=== PATIENT | female | born 1950 | race Caucasian/White ===

== ENCOUNTER 2017-02-08 11:19 | Inpatient (IN) | payer OTHER ==
[2017-02-08] VITALS (13 sets, daily range): BP systolic 93–141; BP diastolic 49–79
[~2017-02-08] VITALS: Ht 147.3 cm; Wt 47.7 kg
--- NOTE | 2017-02-08 11:42 | ED General ---
General Stated Complaint: LIGHTHEADED Source of Information: Patient, EMS Exam Limitations: Other (PT IS A DIFFICULT HISTORIAN) History of Present Illness Time Seen by Provider: 11:21 Initial Comments PT ARRIVES VIA EMS PT WAS AT A STORE AND WAS FEELING WEAK AND DIZZY--HAS BEEN FEELING THIS WAY " FOR AWHILE" BUT IS WORSE TODAY NO SYNCOPE, AND WAS ASSISTED TO THE FLOOR PT STATES SHE JUST FEELS LIGHTHEADED AND WEAK NO PAIN ANYWHERE AND NO HEADACHE NO CHEST PAIN, PALPITATIONS OR SHORTNESS OF BREATH NO NAUSEA/VOMITING NO PARESTHESIAS OR MOTOR DEFICITS NO VISION CHANGES NO COUGH OR URI SYMPTOMS NO URINARY SYMPTOMS NO FEVER PT WAS DX 07/2016 WITH BREAST CANCER--PT STATES SHE HAS NOT HAD SURGERY OR RADIATION, BUT HAS BEEN GETTING CHEMO--LAST TREATMENT 01/28/17--GOES TO PT STATES "THEY'RE NOT SURE" IF CANCER HAS METASTASIZED PT HAS AN APPOINTMENT NEXT WEEK TO HAVE MRI OF BREAST PT STATES SHE HAD LAB ON 01/28/17 BEFORE CHEMO PT STATES SHE IS "NOT EATING WELL" --JUST DOESN'T FEEL LIKE EATING, BUT IS NOT NAUSEATED HAS NOT EATEN OR DRANK ANYTHING TODAY PT STATES SHE IS URINATING NORMALLY, AND HAVING NORMAL BM'S PT STATES ON ARRIVAL THAT SHE DOESN'T WANT ANY TESTS DONE--"DON'T THINK I NEED ANY"--STATES "I JUST WANT TO BE ADMITTED SO I CAN GET MY STRENGTH BACK" EXPLAINED TO PT THAT TESTS NEEDED TO BE DONE, AND COULD NOT JUST ADMIT TO HOSPITAL WITHOUT MEETING ADMISSION CRITERIA PCP: [facility]: Allergies and Home Medications Allergies Coded Allergies: Sulfa (Sulfonamide Antibiotics) (Unverified Allergy, Intermediate, ) Home Medications No Active Prescriptions or Reported Meds Constitutional: No chills, No diaphoresis, dizziness, No fever, malaise, weakness EENTM: no symptoms reported Respiratory: no symptoms reported, No cough, No dyspnea on exertion, No short of breath Cardiovascular: no symptoms reported, No chest pain Gastrointestinal: No abdominal pain, No constipation, No diarrhea, No dysphagia , No hematemesis, loss of appetite, No melena, No nausea, No vomiting Genitourinary: no symptoms reported Musculoskeletal: no symptoms reported Skin: other (ABRASION TO RIGHT BROW AND LOWER LIP--STATES SHE BUMPED INTO THE WALL THIS AM TRYING TO TURN ON THE LIGHTSWITCH, NO LOSS OF CONSCIOUSNESS.) Psychiatric/Neurological: No Symptoms Reported, Denies Headache, Denies Numbness, Denies Paresthesia, Denies Seizure Hematologic/Lymphatic: No Symptoms Reported Immunological/Allergic: no symptoms reported Past Exydqvx-Rlqccp-Mnwthj Hx Seasonal Allergies Seasonal Allergies: Yes Surgeries History of Surgeries: Yes (PORT RIGHT CHEST; LEFT BREAST BIOPSY) Surgeries: Breast, Orthopedic Respiratory History of Respiratory Disorde: No Cardiovascular History of Cardiac Disorders: No Neurological History of Neurological Disord: No Reproductive System Hx Reproductive Disorders: No Sexually Transmitted Disease: No Genitourinary History of Genitourinary Disor: No Gastrointestinal History of Gastrointestinal Di: No Musculoskeletal History of Musculoskeletal Dis: No Endocrine History of Endocrine Disorders: No HEENT History of HEENT Disorders: No Cancer History of Cancer: Yes (BREAST CANCER DX 07/2016--RECEIVING CHEMO AT , NO SURGERY OR RADIATION OF 02/08/17. ) Cancer: Breast Physical Exam Vital Signs Vital Sign - Last 12Hours 02/08/17 11:53 Temp 99.9 Pulse 110 Resp 18 B/P (MAP) 118/86 Pulse Ox 97 Capillary Refill : General Appearance: No Apparent Distress, Thin, Other (WEARING A WIG) HEENT: PERRL/EOMI, Pale Conjunctivae (L), Pale Conjunctivae (R) Neck: Full Range of Motion, Normal Inspection, Non Tender, Supple Respiratory: Normal Breath Sounds, No Accessory Muscle Use, No Respiratory Distress Cardiovascular: Regular Rate, Rhythm, No Edema, No Murmur, Normal Peripheral Pulses Gastrointestinal: Normal Bowel Sounds, No Organomegaly, No Pulsatile Mass, Non Tender, Soft Back: No CVA Tenderness Extremity: Normal Capillary Refill, Normal Inspection, Normal Range of Motion, Non Tender, No Calf Tenderness, No Pedal Edema Neurologic/Psychiatric: Alert, Oriented x3, No Motor/Sensory Deficits, 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 Norm as Tested Skin: Warm/Dry, Pallor Focused Exam Evaluation Lactate Level Laboratory Tests 02/08/17 11:30: Lactic Acid Level 0.88 Lactic Acid Level Progress/Results/Core Measures Results/Orders Lab Results Laboratory Tests Test 02/08/17 11:30 Range/Units White Blood Count 0.1 *L 4.3-11.0 10^3/uL Red Blood Count 1.99 L 4.35-5.85 10^6/uL Hemoglobin 6.5 *L 11.5-16.0 G/DL Hematocrit 19 *L 35-52 % Mean Corpuscular Volume 96 80-99 FL Mean Corpuscular Hemoglobin 33 25-34 PG Mean Corpuscular Hemoglobin Concent 34 32-36 G/DL Red Cell Distribution Width 13.5 10.0-14.5 % Platelet Count 41 L 130-400 10^3/uL Mean Platelet Volume 11.1 H 7.4-10.4 FL Neutrophils (%) (Auto) 31 L 42-75 % Lymphocytes (%) (Auto) 39 12-44 % Monocytes (%) (Auto) 15 H 0-12 % Eosinophils (%) (Auto) 0 0-10 % Basophils (%) (Auto) 15 H 0-10 % Neutrophils # (Auto) 0.0 L 1.8-7.8 X 10^3 Lymphocytes # (Auto) 0.1 L 1.0-4.0 X 10^3 Monocytes # (Auto) 0.0 0.0-1.0 X 10^3 Eosinophils # (Auto) 0.0 0.0-0.3 10^3/uL Basophils # (Auto) 0.0 0.0-0.1 10^3/uL Prothrombin Time 14.5 12.2-14.7 SEC INR Comment 1.1 0.8-1.4 Activated Partial Thromboplast Time 34 24-35 SEC Sodium Level 136 135-145 MMOL/L Potassium Level 3.4 L 3.6-5.0 MMOL/L Chloride Level 101 98-107 MMOL/L Carbon Dioxide Level 22 21-32 MMOL/L Anion Gap 13 5-14 MMOL/L Blood Urea Nitrogen 11 7-18 MG/DL Creatinine 0.60 0.60-1.30 MG/DL Estimat Glomerular Filtration Rate > 60 BUN/Creatinine Ratio 18 Glucose Level 129 H 70-105 MG/DL Lactic Acid Level 0.88 0.50-2.00 MMOL/L Calcium Level 8.9 8.5-10.1 MG/DL Magnesium Level 1.9 1.8-2.4 MG/DL Total Bilirubin 0.4 0.1-1.0 MG/DL Aspartate Amino Transf (AST/SGOT) 9 5-34 U/L Alanine Aminotransferase (ALT/SGPT) 9 0-55 U/L Alkaline Phosphatase 44 40-136 U/L Troponin I < 0.30 <0.30 NG/ML Total Protein 5.9 L 6.4-8.2 GM/DL Albumin 3.4 3.2-4.5 GM/DL TSH [place] Testing 0.57 0.35-4.94 UIU/ML My Orders Orders - HUAN HEART DO Saline Lock/Iv-Start (02/08/17 11:21) Ekg Tracing (02/08/17 11:21) Monitor-Rhythm Ecg Trace Only (02/08/17 11:21) Cbc With Automated Diff (02/08/17 11:21) Comprehensive Metabolic Panel (02/08/17 11:21) Magnesium (02/08/17 11:21) Protime With Inr (02/08/17 11:21) Partial Thromboplastin Time (02/08/17 11:21) Troponin I (02/08/17 11:21) Lactic Acid Analyzer (02/08/17 11:31) Thyroid Analyzer (02/08/17 11:31) Ua Culture If Indicated (02/08/17 11:31) Blood Culture (02/08/17 11:31) Chest Pa/Lat (2 View) (02/08/17 11:31) Red Cells Leukocytes Reduced (02/08/17 12:15) Type And Screen (02/08/17 12:15) Cefepime Injection (Maxipime Injection) (02/08/17 14:00) Ns Iv 1000 Ml (Sodium Chloride 0.9%) (02/08/17 14:19) Medications Given in ED Current Medications Medications Dose Ordered Sig/Yonatan Route Start Time Stop Time Status Last Admin Dose Admin Cefepime HCl 2000 mg/Sodium Chloride 50 ml @ 100 mls/hr ONCE ONCE IV 02/08/17 14:00 02/08/17 14:29 DC 02/08/17 14:11 100 MLS/HR Sodium Chloride 1,000 ml @ ud STK-MED ONCE .ROUTE 02/08/17 14:19 02/08/17 14:27 DC 02/08/17 14:37 75 MLS/HR Vital Signs/I&O Vital Sign - Last 12Hours 02/08/17 02/08/17 02/08/17 02/08/17 11:53 14:37 14:53 16:15 Temp 99.9 100.2 100.6 100.6 Pulse 110 110 97 98 Resp 18 12 14 12 B/P (MAP) 118/86 135/78 130/76 Pulse Ox 97 100 100 98 Intake and Output 02/09/17 00:00 Intake Total 550 ml Balance 550 ml Progress Note : Progress Note PT VERY ARGUMENTATIVE ABOUT HAVING ANY TESTS DONE, EXPLAINED TO PT A MULTITUDE OF TIMES THE REASONS WHY TESTS NEEDED TO BE DONE--FEVER, LOW WBC COUNT, HER SYMPTOMS OF DIZZINESS AND WEAKNESS, ETC. AND THE FACT THAT SHE WAS RECEIVING CHEMOTHERAPY, RISKS OF LIFE-THREATENING INFECTION, ETC. PT EVENTUALLY AGREED TO BLOOD WORK, AND THEN LATER AGREED TO CXR. PT REFUSES CT HEAD--STATES "I DON'T NEED THAT" PT ALSO ADAMANTLY REFUSES TO GIVE A URINE SPECIMEN PT REMAINED VERY MANIPULATIVE THROUGHOUT ER STAY--AGREEING TO CERTAIN TESTS, ETC , ONLY IF I DO CERTAIN THINGS, ETC. ECG Initial ECG Impression Time: 11:43 Initial ECG Rate: 102 Initial ECG Rhythm: Normal Sinus Initial ECG Impression: Nonspecific Changes Initial ECG Comparisson: No Previous ECG Available Diagnostic Imaging Comments CXR--NO ACUTER PROCESS, PER RADIOLOGIST REPORT @ 1322 Reviewed: Reviewed by Me Departure Communication Progress Notes 1322--CONTACTED TRANSFER LINE 1330--SPOKE WITH TRANSFER/SYNTHETIC FILAMENT SPINNER. SHE WILL DISCUSS WITH ONCOLOGIST AND CALL ME BACK 1349--SPOKE WITH SYNTHETIC FILAMENT SPINNER. SHE HAS DISCUSSED WITH ONCOLOGIST, DR. JENIFFER KEENAN, HE ACCEPTS PT FOR ADMIT/TRANSFER. ADVISES CEFEPIME 2 GM. WILL BE AROUND A 2 HOUR WAIT FOR BED ASSIGNMENT. THEY WILL CALL BACK WITH ROOM # IT BECOMES AVAILABLE. 1415--AFTER INITIALLY AGREEING TO BEING TRANSFERRED TO , PT NOW ADAMANTLY REFUSES AND DEMANDS TO STAY HERE. 1416/1418--PAGED/SPOKE WITH DR. PAVON. HE WILL SEE PT IN CONSULT BUT NEED TO ADMIT TO HOSPITALIST. HE ADVISES LEVAQUIN IN ADDITION TO CEFEPIME 1425--SPOKE WITH DR. CONTRERAS, HOSPITALIST, ACCEPTS PT FOR ADMIT Impression Impression: Primary Impression: NEUTROPENIA WITH FEVER ON CHEMOTHERAPY Additional Impressions: Pancytopenia due to chemotherapy Breast cancer Disposition: ADMITTED INPATIENT Condition: Stable/Unchanged Admissions Decision to Admit Reason: Admit from ER (General) Decision to Admit/Date: Feb 08, 2017 Time/Decision to Admit Time: 14:25 Departure-Patient Inst. Referrals: NO,LOCAL PHYSICIAN (PCP/Family) Primary Care Physician Scripts No Active Prescriptions or Reported Meds HUAN HEART DO Feb 08, 2017 11:42
[2017-02-08 12:03] LABS: BASOPHILS % (AUTO) 15 % (0-10); EOSINOPHILS % (AUTO) 0 % (0-10); LYMPHOCYTES # (AUTO) 0.1 X 10^3 (1.0-4.0); LYMPHOCYTES % (AUTO) 39 % (12-44); MEAN CORPUSCULAR HEMOGLOBIN 33 PG (25-34); MEAN CORPUSCULAR HGB CONC 34 G/DL (32-36); MEAN CORPUSCULAR VOLUME 96 FL (80-99); MEAN PLATELET VOLUME 11.1 FL (7.4-10.4); MONOCYTES % (AUTO) 15 % (0-12); NEUTROPHILS % (AUTO) 31 % (42-75); PLATELET COUNT 41 10^3/uL (130-400); RED BLOOD COUNT 1.99 10^6/uL (4.35-5.85); RED CELL DISTRIBUTION WIDTH 13.5 % (10.0-14.5)
[2017-02-08 12:05] LABS: WHITE BLOOD COUNT 0.1 10^3/uL (4.3-11.0)
[2017-02-08 12:09] LABS: INR 1.1 (0.8-1.4); PROTHROMBIN TIME PATIENT 14.5 SEC (12.2-14.7)
[2017-02-08 12:18] LABS: ALANINE AMINOTRANSFERASE 9 U/L (0-55); ALBUMIN 3.4 GM/DL (3.2-4.5); ANION GAP 13 MMOL/L (5-14); ASPARTATE AMINO TRANSFERASE 9 U/L (5-34); BILIRUBIN,TOTAL 0.4 MG/DL (0.1-1.0); BLOOD UREA NITROGEN 11 MG/DL (7-18); BUN/CREATININE RATIO 18; CALCIUM 8.9 MG/DL (8.5-10.1); CARBON DIOXIDE 22 MMOL/L (21-32); CHLORIDE 101 MMOL/L (98-107); GFR ESTIMATED > 60; GLUCOSE 129 MG/DL (70-105); MAGNESIUM 1.9 MG/DL (1.8-2.4); POTASSIUM 3.4 MMOL/L (3.6-5.0); SODIUM 136 MMOL/L (135-145); TOTAL PROTEIN 5.9 GM/DL (6.4-8.2)
--- OUTSIDE RECORDS SUMMARY | 2017-02-08 12:22 | XMS REPORT | Encounter Summary ---
Author Author [facility] Organization [facility] Address Unknown Phone Unavailable Care Team Providers Care Senior Database Engineer Name Role Phone PCP Unavailable Reason for Visit * Reason Comments Abstract Encounter Details Date Type Department Care Team Description 01/31/2017 Telephone [facility] Leslie Gorman, [facility] - OP Exam ACADEMIC AFFAIRS DIRECTOR [address] [address] [phone] Social History Tobacco Use Types Packs/Day Years Used Date Never Smoker Smokeless Tobacco: Never Used Alcohol Use Drinks/Week oz/Week Comments No 0 Standard 0.0 drinks or equivalent Sex Assigned at Date Recorded Not on file as of this encounter Functional Status Functional Status Response Date of Assessment Does the patient have a hearing impairment: No 01/28/2017 Does the patient have a visual impairment: Yes 01/28/2017 Does the patient have impaired ambulation: No 01/28/2017 Does the patient have an activity of daily living No 01/28/2017 (ADL) impairment: Does the patient have an instrumental activity of No 01/28/2017 daily living (IADL) impairment: Cognitive Status Response Date of Assessment Does the patient have a cognitive impairment: No 01/28/2017 as of this encounter Plan of Treatment Not on fileas of this encounter Visit Diagnoses Not on filein this encounter
--- OUTSIDE RECORDS SUMMARY | 2017-02-08 12:22 | XMS REPORT | Encounter Summary ---
Author Author [facility] Organization [facility] Address Unknown Phone Unavailable Care Team Providers Care Fishing Rod Trimmer Name Role Phone PCP Unavailable Encounter Details Date Type Department Care Team Description 01/31/2017 Clinical [facility] Ghada Govea [facility] - OP Exam [address] [place] [phone] Social History Tobacco Use Types Packs/Day Years [...] impairment: No 01/28/2017 as of this encounter Progress Notes * Ghada Govea RD - 01/31/2017 11:36 AM [facility] Clinical Nutrition Note: Attempted to contacted Patient as requested per referral from Beckie Lombardo APRN with history of 7 lb weight loss over past week. Cell phone not accepting calls and left message on home phone with my contact information and encouraged phone consultation to discuss strategies to maintain weight. Will try reaching out to patient again by phone, understand she is concerned about being away from work. Ghada Govea RDN, WAXER, LDN Oncology Measuring Machine Tender Pager: [phone] in this encounter Plan of Treatment Not on fileas of this encounter Visit Diagnoses Not on filein this encounter
--- OUTSIDE RECORDS SUMMARY | 2017-02-08 12:22 | XMS REPORT | Clinical Summary ---
Author Author [facility] Organization [facility] Address Unknown Phone Unavailable Care Team Providers Care Senior Financial Accountant Name Role Phone PCP Unavailable Source Comments Some departments are not documenting in the electronic medical record. If you do not see the information that you expected, contact Release of Information in the Health Information Management department at [phone] for further assistance in locating additional records.[facility] Allergies Active Allergy Reactions Severity Noted Date Comments Seasonal Allergies EYE IRRITATION, SNEEZING Low 08/24/2016 Current Medications Prescription Sig. Disp. Refills Start End Date Status Date aspirin 325 mg tablet Take 325 mg by mouth Active daily. Take with food. DIPHENHYDRAMINE HCL Take by mouth. Active (ALLERGY MEDICATION PO) HYDROQUINONE TP Apply topically to Active affected area. ondansetron (ZOFRAN) 8 mg Take 1 Tab by mouth every 30 Tab 3 09/21/19 Active tablet 8 hours as needed for 17 Nausea or Vomiting. prochlorperazine maleate Take 1 Tab by mouth every 30 Tab 3 09/21/19 Active (COMPAZINE) 10 mg tablet 6 hours as needed for 17 Nausea or Vomiting. lidocaine/prilocaine apply one hour prior to 30 g 2 10/09/19 Active (EMLA) 2.5/2.5 % topical port access 17 cream dexamethasone (DECADRON) Take with food. 8 mg in 24 Tab 0 12/18/19 Active 4 mg tablet AM on days 2-4 each 17 cycle. traMADol (ULTRAM) 50 mg Take 1 tablet by mouth 30 tablet 0 01/29/20 Active tabletIndications: PAIN every 6 hours as needed 17 for Pain. 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 Harvey is a female who presented [facility] on 09/07/2016 at age 66 for evaluation of left breast cancer. Ms. Harvey saw her PCP in July for a pruritic left breast rash. She started noticing discoloration of the left breast approximately 1 year ago and though it was shingles. She was sent for imaging and found to have a left breast mass, right breast calcifications and enlarged left axillary lymph nodes. Right stereotactic biopsy 08/13/16 ([facility]) revealed fibrocystic changes. Left breast sono-guided biopsy 08/13/16 ([facility]) revealed grade 2 invasive ductal carcinoma. Left axilla sono-guided biopsy 08/13/16 ([facility]) revealed metastatic carcinoma. Ms. Harvey started neoadjuvant Taxol + ddAC on 09/20/16. Last treatment is scheduled for 01/28/17. BREAST IMAGING: Mammogram: -- Bilateral diagnostic mammogram 08/03/16 ([facility]) revealed in the left upper outer breast at 2:00, 3 cm FTN there was a 3 x 2 cm hypodense region with irregular margins containing pleomorphic calcifications and two large coarse calcifications. There was associated skin thickening and nipple retraction. In the right breast at 2-2:30, 6 cm FTN there was a region of grouped pleomorphic calcifications. Ultrasound: -- Bilateral breast ultrasound 08/03/16 ([facility]) revealed a 4.1 x 2.8 cm mass with irregular margins at 2:00 with internal vascularity and regions of posterior acoustic shadowing. In the left axilla there were at least two irregular appearing lymph nodes with thickened cortex, cortical bulge, and replacement of fatty hilum. There were no suspicious right breast findings. MRI: -- Bilateral breast MRI 08/30/16 () revealed in the right breast there was no suspicious mass or mass enhancement. There was no axillary or internal mammary lymphadenopathy. In the left breast there was extensive mass and nonmass enhancement involving the majority of the left breast, but centered centrally measuring 7.5 cm transverse x 4.0 cm AP x 10.2 cm CC with mixed kinetics including washout and a central biopsy clip consistent with known malignancy. There was contiguous involvement of the nipple and skin in the periareolar region with diffuse skin thickening and enhancement. There was extension to the anterior pectoral fascia with prepectoral edema, but no abnormal pectoralis muscle enhancement. There was left axillary level 1, 2, and 3 lymphadenopathy with the largest level 1 node measuring 1.3 cm, largest level 2 node measuring 0.7 cm, and largest level 3 node measuring 1.0 cm. There was a biopsy clip within a metastatic level 1 axillary lymph node. Normal-appearing internal mammary lymph nodes were noted. Staging studies: -- CT CAP 09/03/16 ([facility]) revealed Chest: 1. Irregular left breast mass with overlying skin thickening compatible with the patient's known breast cancer. Correlation with breast imaging is recommended. 2. Mild left axillary adenopathy consistent with biopsy-proven cristina metastatic disease. Additional small, though morphologically suspicious left subpectoral lymph nodes are concerning for additional cristina metastases. 3. No evidence of pulmonary metastatic disease. Abdomen and Pelvis: 1. No evidence of abdominal/pelvic metastatic disease. 2. Scattered low-density liver lesions, which are too small to characterize, though likely represent cysts or hemangiomas. 3. Small low-density proximal pancreatic lesions which may reflect side branch intraductal papillary mucinous neoplasms or possibly sequela of prior pancreatitis. These can be followed on subsequent surveillance imaging. The main pancreatic duct is normal caliber. -- Bone scan 09/03/16 ([facility]) revealed no scintigraphic evidence of osseous metastatic disease. Mild asymmetric radionuclide uptake within the soft tissues of the right breast. REPRODUCTIVE HEALTH: Age at first Menarche: 11 Age at First Live : N/A Age at Menopause: 56, no HRT : 0 Para: 0 : N/A PROCEDURE: pending PERTINENT PMH: Negative FAMILY HISTORY: No family history of breast or ovarian cancer PHYSICAL EXAM on PRESENTATION: Right - No palpable breast masses. No skin, nipple, or areolar change. Left - Large 9 cm central mass with nipple retraction and thickening. Patchy redness of the entire breast, especially superior consistent with skin involvement. Palpable matted right axillary lymph nodes. MEDICAL ONCOLOGY: Dr. Eaton PRESENT THERAPY: Neoadjuvant Taxol + ddAC started 09/20/16. REFERRED BY: Tiffany Hendrix APRN Last Assessment & Plan: Impression: 1. Stage III (cT4b N2 M0) strongly hormone positive, HER-2 negative invasive ductal carcinoma of the left breast with extensive skin involvement responding to neoadjuvant chemotherapy 2. Right breast mammographic abnormalities, biopsied and benign 3. 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 ECOG PS 0 Plan: 1. Doing well. She is responding very nicely to neoadjuvant chemotherapy. She does have some persistent disease mainly around the nipple areolar complex, but her previous skin disease is much much better. 2. Continue ddAC with C2D1=12/31/2016. 3. Dexamethasone 12 mg day 1, 8 mg days [address] Oliver and I will work closely together to determine her restaging process. We will likely need an additional MRI of her breasts to determine the extent of her skin disease after primary chemotherapy. If she is not able to adequately clear her skin disease with her planned neoadjuvant course of chemo, we would treat her as locally advanced unresectable disease preoperatively with letrozole and palbociclib and attempt a toilet mastectomy down the line. 5. RTC with [employer] in 2 weeks and with me in 4 weeks, or sooner should new or concerning symptoms develop. I have discussed the diagnosis and treatment plan with the patient and she expresses understanding and wishes to proceed. Encounters Date Type Specialty Care Team Description 01/31/2017 Telephone Oncology Leslie Gorman, Abstract KETTLE LOADER 01/31/2017 [address] On[address]ada Govea RD Support 01/28/2017 Office Visit Oncology Rafael Hemphill MD Malignant neoplasm of Leslie Gorman, upper-outer quadrant of KETTLE LOADER left breast in female, estrogen receptor positive (HCC) (Primary Dx) 01/28/2017 Hospital Oncology Leslie Gorman, Encounter KETTLE LOADER 01/28/2017 Hospital Oncology Martha Oliver MD Encounter 01/26/2017 Telephone Oncology Audrey Mendes RN Fatigue 01/20/2017 Office Visit Oncology Martha Oliver MD Malignant neoplasm of Becky Alex PA-C upper-outer quadrant of left breast in female, estrogen receptor positive (HCC) (Primary Dx) 01/17/2017 Hospital Oncology Irasema Lopez, DESIRE Encounter 01/14/2017 Office Visit Oncology Irasema Lopez APRN Malignant neoplasm of upper-outer quadrant of left breast in female, estrogen receptor positive (HCC) (Primary Dx) 01/14/2017 [facility] Oncology Irasema Lopez, KETTLE LOADER Encounter 01/14/2017 Hospital Oncology Irasema Lopez, KETTLE LOADER Encounter 01/07/2017 Telephone Oncology Martha Oliver MD Appointment (Pre-op appt with Dr. Martha Oliver) 01/05/2017 Telephone Oncology Martha Oliver MD Appointment 01/03/2017 Hospital Oncology Rafael Hemphill MD Encounter 01/03/2017 Telephone Oncology Martha Oliver MD Appointment 01/03/2017 Orders Only Oncology Rafael Hemphill MD Malignant neoplasm of upper-outer quadrant of left breast in female, estrogen receptor positive (HCC) (Primary Dx) 12/31/2016 Hospital Oncology Rafael Hemphill MD Encounter 12/31/2016 Office Visit Oncology Rafael Hemphill MD Malignant neoplasm of upper-outer quadrant of left breast in female, estrogen receptor positive (HCC) (Primary Dx) 12/31/2016 [facility] Oncology Rafael Hemphill MD Encounter 12/24/2016 [facility] Oncology Irasema Lopez, KETTLE LOADER Encounter 12/24/2016 [facility] Oncology Irasema Lopez, KETTLE LOADER Encounter 12/24/2016 Office Visit Oncology Irasema Lopez, DESIRE Malignant neoplasm of upper-outer quadrant of left breast in female, estrogen receptor positive (HCC) (Primary Dx) 12/20/2016 [facility] Oncology Irasema Lopez, KETTLE LOADER Encounter 12/17/2016 [facility] Oncology Irasema Lopez, KETTLE LOADER Encounter 12/17/2016 Office Visit Oncology Irasema Lopez, DESIRE Malignant neoplasm of upper-outer quadrant of left breast in female, estrogen receptor positive (HCC) (Primary Dx) 12/10/2016 [facility] Oncology Irasema Lopez, KETTLE LOADER Encounter 12/10/2016 [facility] Oncology Irasema Lopez, KETTLE LOADER Encounter 12/09/2016 Orders Only Oncology Rafael Hemphill MD 12/03/2016 Office Visit Oncology Irasema Lopez, DESIRE Malignant neoplasm of upper-outer quadrant of left female breast (HCC) (Primary Dx) 12/03/2016 [facility] Oncology Irasema Lopez, KETTLE LOADER Encounter 12/03/2016 [facility] Oncology Tatiana Valdez KETTLE LOADER Encounter Irasema Lopez, KETTLE LOADER 11/26/2016 [facility] Oncology Irasema Lopez, KETTLE LOADER Encounter 11/26/2016 [facility] Oncology Irasema Lopez, KETTLE LOADER Encounter 11/19/2016 Office Visit Oncology Rafael Hemphill MD Malignant neoplasm of upper-outer quadrant of left female breast (HCC) (Primary Dx) 11/19/2016 Hospital Oncology Rafael Hemphill MD Encounter 11/19/2016 [facility] Oncology Rafael Hemphill MD Encounter 11/19/2016 Orders Only Oncology Rafael Hemphill MD 11/12/2016 [facility] Oncology Rafael Hemphill MD Encounter 11/12/2016 [facility] Oncology Rafael Hemphill MD Encounter from Last 3 Months Family History Medical History Relation Name Comments Heart Disease Brother Cancer Father esophageal Cancer Mother "stomach" Relation Name Status Comments Brother Father Mother Social History Tobacco Use Types Packs/Day Years Used Date Never Smoker Smokeless Tobacco: Never Used Alcohol Use Drinks/Week oz/Week Comments No 0 Standard 0.0 drinks or equivalent Sex Assigned at Date Recorded Not on file Last Filed Vital Signs Vital Sign Reading Time Taken Blood Pressure 145/77 01/28/2017 1:26 PM CDT Pulse 118 01/28/2017 1:26 PM CDT Temperature 36.6 C (97.9 F) 01/28/2017 1:26 PM CDT Respiratory Rate 18 01/28/2017 1:26 PM CDT Oxygen Saturation 99% 01/28/2017 1:26 PM CDT Inhaled Oxygen - - Concentration Weight 44.4 kg (97 lb 12.8 oz) 01/28/2017 1:26 PM CDT Height 139.7 cm (4' 7") 01/28/2017 1:26 PM CDT Body Mass Index 22.73 01/28/2017 1:26 PM CDT Plan of Treatment Health Maintenance Due Date Last Done Comments HEPATITIS C SCREENING 1951 PHYSICAL (COMPREHENSIVE) 1958 EXAM PERTUSSIS VACCINE 1962 TETANUS VACCINE 01/24/1968 BREAST CANCER SCREENING 1991 COLORECTAL CANCER 2001 SCREENING SHINGLES VACCINE 2011 OSTEOPOROSIS SCREENING 01/24/2016 PREVNAR/PNEUMOVAX (#1) 01/24/2016 INFLUENZA VACCINE 02/18/2017 Results * CBC AND DIFF (01/28/2017 1:53 PM) Only the most recent of 9 results within the time period is included. Component Value Ref Range White Blood Cells 16.6 (H) 4.5 - 11.0 K/UL RBC 2.64 (L) 4.0 - 5.0 M/UL Hemoglobin 8.6 (L) 12.0 - 15.0 GM/DL Hematocrit 25.9 (L) 36 - 45 % MCV 98.2 80 - 100 FL MCH 32.6 26 - 34 PG MCHC 33.2 32.0 - 36.0 G/DL RDW 14.6 11 - 15 % Platelet Count 268 150 - 400 K/UL MPV 8.5 7 - 11 FL Segmented Neutrophils 81 (H) 41 - 77 % Bands 5 0 - 10 % Lymphocytes 5 (L) 24 - 44 % Monocytes 6 4 - 12 % Metamyelocyte 2 % Myelocyte 1 % Absolute Neutrophil Count 14.28 (H) 1.8 - 7.0 K/UL Manual Specimen Performing Laboratory Blood [facility] [id number] [place] [id number] * COMPREHENSIVE METABOLIC PANEL (01/28/2017 1:53 PM) Only the most recent of 8 results within the time period is included. Component Value Ref Range Sodium 139 137 - 147 MMOL/L Potassium 3.4 (L) 3.5 - 5.1 MMOL/L Chloride 104 98 - 110 MMOL/L Glucose 113 (H) 70 - 100 MG/DL Blood Urea Nitrogen 9 7 - 25 MG/DL Creatinine 0.57 0.4 - 1.00 MG/DL Calcium 9.4 8.5 - 10.6 MG/DL Total Protein 6.5 6.0 - 8.0 G/DL Total Bilirubin 0.2 (L) 0.3 - 1.2 MG/DL Albumin 3.8 3.5 - 5.0 G/DL Alk Phosphatase 95 25 - 110 U/L AST (SGOT) 14 7 - 40 U/L CO2 27 21 - 30 MMOL/L ALT (SGPT) 10 7 - 56 U/L Anion Gap 8 3 - 12 eGFR Non >60 >60 mL/min Comment: The eGFR is not validated for use in drug dosing adjustments. Continue to use estimated creatinine clearance per dosing reference text. Please contact the Clinical Pharmacist for questions. eGFR >60 >60 mL/min Comment: The eGFR is not validated for use in drug dosing adjustments. Continue to use estimated creatinine clearance per dosing reference text. Please contact the Clinical Pharmacist for questions. Specimen Performing Laboratory Blood [facility] [address] [place] [address] from Last 3 Months
--- OUTSIDE RECORDS SUMMARY | 2017-02-08 12:22 | XMS REPORT | Continuity of Care Document ---
Author Author [employer] Organization [facility] Address Unknown Phone Unavailable Care Team Providers Care Book Store Associate Name Role Phone [employer] Unavailable Unavailable Problems Medications Allergies, Adverse Reactions, Alerts Immunizations Results Vital Signs Encounters Location Location Details Encounter Type Encounter Number Reason For Visit Attending Provider ADM Date DC Date Status Source O 01/28/2017 Active [facility] [place] [facility] [id number] SHARATH DAILEY 01/28/2017 Active [facility] Procedures Plan of Care Social History Assessment and Plan Family History Value Date Source Advance Directives Order Name Results Value Date Source
--- OUTSIDE RECORDS SUMMARY | 2017-02-08 12:23 | XMS REPORT | Encounter Summary ---
Author Author [facility] Organization [facility] Address Unknown Phone Unavailable Care Team Providers Care Career Development Manager Name Role Phone PCP Unavailable Reason for Visit * Reason Comments Appointment Encounter Details Date Type Department Care Team Description 01/05/2017 Telephone [facility] Martha Oliver MD Appointment [facility] - Exam [address] [place] [address] [place] [address] [phone] Social History Tobacco Use Types Packs/Day Years Used Date Never Smoker Smokeless Tobacco: Never Used Alcohol Use Drinks/Week oz/Week Comments No 0 Standard 0.0 drinks or equivalent Sex Assigned at Date Recorded Not on file as of this encounter Functional Status Functional Status Response Date of Assessment Does the patient have a hearing impairment: No 01/03/2017 Does the patient have a visual impairment: Yes 01/03/2017 Does the patient have impaired ambulation: No 01/03/2017 Does the patient have an activity of daily living No 01/03/2017 (ADL) impairment: Does the patient have an instrumental activity of No 01/03/2017 daily living (IADL) impairment: Cognitive Status Response Date of Assessment Does the patient have a cognitive impairment: No 01/03/2017 as of this encounter Plan of Treatment Not on fileas of this encounter Visit Diagnoses Not on filein this encounter
--- OUTSIDE RECORDS SUMMARY | 2017-02-08 12:23 | XMS REPORT | Encounter Summary ---
Author Author [facility] Organization [facility] Address Unknown Phone Unavailable Care Team Providers Care Film Projector Operator Name Role Phone PCP Unavailable Reason for Visit * Reason Comments Chemotherapy Heme/Onc Care * Treatment (Routine) Status Reason Specialty Diagnoses / Referred By Referred To Procedures Contact Contact Authorized Hematology and Diagnoses Rafael Hemphill Marc S, Oncology Malignant [place] [address] [place] [id number] female breast Phone: Phone: ([facility]) [phone] DOXOrubicin Fax: (ADRIAMYCIN) - [phone] J9000; Cyclophosphamide (CYTOXAN) - J9070; Pegfilgrastim (NEULASTA) J2505; Aloxi-J2469;Emen d-J1453 P rocedures AC NEULASTA Encounter Details Date Type Department Care Team Description 01/14/2017 Hospital [facility] Irasema Lopez APR[place] [address] [place] [address] [phone] [place] [address] Social History Tobacco Use Types Packs/Day Years Used Date Never Smoker Smokeless Tobacco: Never Used Alcohol Use Drinks/Week oz/Week Comments No 0 Standard 0.0 drinks or equivalent Sex Assigned at Date Recorded Not on file as of this encounter Functional Status Functional Status Response Date of Assessment Does the patient have a hearing impairment: No 01/14/2017 Does the patient have a visual impairment: Yes 01/14/2017 Does the patient have impaired ambulation: No 01/14/2017 Does the patient have an activity of daily living No 01/14/2017 (ADL) impairment: Does the patient have an instrumental activity of No 01/14/2017 daily living (IADL) impairment: Cognitive Status Response Date of Assessment Does the patient have a cognitive impairment: No 01/14/2017 as of this encounter Discharge Instructions * Patient Instructions - Diane Washington RN - 01/14/2017 10:49 AM CDT Call Immediately to report the following: Uncontrolled nausea and/or vomiting, uncontrolled pain, or unusual bleeding. Temperature of 100.4 F or greater and/or any sign/symptom of infection (redness , warmth, tenderness) Painful mouth or difficulty swallowing Red, cracked, or painful hands and/or feet Diarrhea Swelling of arms or legs Rash Important Phone Numbers: Cancer Center Main Number (answered 24 hours a day) [phone] Cancer Center Scheduling (appointments) [phone] [id number] Cancer Action (for nutritional supplements) [phone] in this encounter Medications at Time of Discharge Medication Sig. Disp. Refills Start Date End Date aspirin 325 mg tablet Take 325 mg by mouth daily. Take with food. dexamethasone (DECADRON) Take with food. 8 mg in 24 Tab 0 12/17/2016 4 mg tablet AM on days 2-4 each cycle. DIPHENHYDRAMINE HCL Take by mouth. (ALLERGY MEDICATION PO) HYDROQUINONE TP Apply topically to affected area. lidocaine/prilocaine apply one hour prior to 30 g 2 10/08/2016 (EMLA) 2.5/2.5 % topical port access cream ondansetron (ZOFRAN) 8 mg Take 1 Tab by mouth every 30 Tab 3 2016 tablet 8 hours as needed for Nausea or Vomiting. prochlorperazine maleate Take 1 Tab by mouth every 30 Tab 3 2016 (COMPAZINE) 10 mg tablet 6 hours as needed for Nausea or Vomiting. as of this encounter Progress Notes * Diane Washington RN - 01/14/2017 10:48 AM CDT CHEMO NOTE Verified chemo consent signed and in chart. Verified initiate chemo order in O2 Blood return positive via: Port (Single, Power Port and Accessed) Premedications/Prehydration given as ordered. Aloxi, Emend, Decadron BSA and dose double checked (agree with orders as written) with: Taylor Jacome RN Arm band verified at bedside with second RN (same RN as above unless otherwise noted). Labs/applicable tests checked: CBC and CMP Chemo drug/dose/route: Cycle 3 AC Rate verified with second RN (same RN as above unless otherwise noted). Patient education offered and stated understanding. Port accessed for labs and treatment. Patient was assessed by Nurse Practitioner in clinic today. Labs within normal limits for treatment. Premeds administered. Treatment administered as ordered. Vesicant precautions maintained. Therapy completed and tolerated well. Discharged home ambulatory. in this encounter Plan of Treatment Not on fileas of this encounter Visit Diagnoses Diagnosis Malignant neoplasm of upper-outer quadrant of left breast in female, estrogen receptor positive (HCC) - Primary in this encounter Administered Medications Medication Order MAR Action Action Date Dose Rate Site cyclophosphamide (CYTOXAN) 816 mg in Given - New 01/14/2017 816 mg 581.6 mL/hr sodium chloride 0.9% (NS) 290.8 mL IVPB Bag 12:24 CDT 816 mg (600 mg/m2 1.36 m2 Treatment plan recorded BSA), Intravenous, 290.8 mL, Administer over 0.5 Hours, ONCE, 1 dose, Tue01/14/17 at 1130, NURSING: To be administered by Chemotherapy Competency-validated nurse. NOTE: This is a HIGH ALERT Medication. SPECIAL TUBING REQUIRED dexamethasone (DECADRON) tablet 12 mg Given 01/14/2017 12 mg 12 mg, Oral, ONCE, 1 dose, Tue01/14/17 11:06 CDT at 1100 DOXOrubicin (ADRIAMYCIN) injection 81.6 Given 01/14/2017 81.6 mg mg 12:14 CDT 81.6 mg (60 mg/m2 1.36 m2 Treatment plan recorded BSA), Intravenous, ONCE, 1 dose, Tue01/14/17 at 1130, Give IV Push over 3-5 minutes. PROTECT FROM LIGHT NURSING: To be administered by Chemotherapy Competency-validated nurse. NOTE: This is a HIGH ALERT Medication. SPECIAL TUBING REQUIRED fosaprepitant (EMEND) 150 mg in sodium Given - New 01/14/2017 150 mg 450 mL/hr chloride 0.9% (NS) 150 mL IVPB Bag 11:10 CDT 150 mg, Intravenous, 150 mL, Administer over 20 Minutes, ONCE, 1 dose, Tue01/14/17 at 1100 heparin lock flush PF syringe 500 Units Given 01/14/2017 500 Units 500 Units, Intra-catheter, ONCE, 1 dose, 13:07 CDT Tue01/14/17 at 1100, NOTE: This is a HIGH ALERT Medication. palonosetron(+) (ALOXI) injection 0.25 Given 01/14/2017 0.25 mg mg 11:08 CDT 0.25 mg, Intravenous, ONCE, 1 dose, Tue01/14/17 at 1100 in this encounter
--- OUTSIDE RECORDS SUMMARY | 2017-02-08 12:23 | XMS REPORT | Encounter Summary ---
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 Name Role Phone PCP Unavailable Reason for Visit * Reason Comments Heme/Onc Care Encounter Details Date Type Department Care Team Description 01/28/2017 Office Visit [facility] Rafael Hemphill MD Malignant neoplasm of Cancer Center - OP Exam [address] upper-outer [place] [address] [place] [address] left breast in female, [place], [place] [phone] estrogen receptor [id number] positive (HCC) (Primary [phone] J Dx) alexomidLeslie Carrasco, HEAD FILTER TANK TENDER HELPER [address] [place] [address] [phone] Social History Tobacco Use Types Packs/Day Years Used Date Never Smoker Smokeless Tobacco: Never Used Alcohol Use Drinks/Week oz/Week Comments No 0 Standard 0.0 drinks or equivalent Sex Assigned at Date Recorded Not on file as of this encounter Last Filed Vital Signs Vital Sign Reading [...] Mass Index 22.73 01/28/2017 1:26 PM CDT in this encounter Functional Status Functional Status Response [...] as of this encounter Progress Notes * Leslie Gorman, HEAD FILTER TANK TENDER HELPER - 01/28/2017 2:00 PM CDT Formatting of this note may be different from the original. Date of Service: 01/28/2017 Subjective: Reason for Visit: Heme/Onc Care Naye Harvey is a 67 y.o. female. 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 She had not had a mammogram since 2000. 2. Bilateral diagnostic mammogram and ultrasound performed at [facility] in [place] showed an approximately 4 cm left breast mass highly concerning for malignancy. At least 2 left axillary lymph nodes appeared suspicious. In the right breast there is a region of pleomorphic microcalcifications that were also somewhat suspicious. 3. Core needle biopsy of the right breast revealed fibrocystic change. 4. Core needle biopsies of the left breast and left axilla both revealed invasive ductal carcinoma, grade 2, ER 98%, MI 89%, HER-2 0+ Ki-67 37%. 5. CT CAP and bone scan negative for metastatic disease. 6. Discussed in multidisciplinary conference and katalina-adjuvant chemotherapy recommended. 7. Weekly Taxol -> ddAC started 09/20/16 Interval Summary Naye presented to the clinic by herself today for dose dense Adriamycin and Cytoxan x 4 cycle for breast cancer. Denies fevers, chills, night sweats or productive cough. Denies CP/SOA or MILAN. Denies N/V/D. Denies hematuria, no epistaxis, no ecchymosis, no fresh blood or ernie in stool. Denies any new lymphadenopathy. Has been increasingly anxious today, with worsening lower back pain without injury. Advised that we should do an x-ray of her back but she refused this. With her weakness, tachycardia and worsening anemia at 8.6 I advised possibly to hold treatment for a week, but she refused and insisted that she get treatment today. 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 Her concern with schools going back is that she will have a harder time receiving treatment. Review of Systems Constitutional: Positive for fatigue and unexpected weight change. Negative for activity change, appetite change, chills and fever. HENT: Negative. Negative for nosebleeds, postnasal drip, rhinorrhea, sinus pressure and sore throat. Eyes: Negative. Negative for visual disturbance. Respiratory: Negative. Negative for cough, chest tightness and shortness of breath. Cardiovascular: Negative. Negative for chest pain, palpitations and leg swelling. Gastrointestinal: Negative. Negative for abdominal distention, abdominal pain, blood in stool, constipation, diarrhea, nausea and vomiting. Endocrine: Negative. Negative for polydipsia, polyphagia and polyuria. Genitourinary: Negative. Negative for dysuria, frequency, hematuria and urgency. Musculoskeletal: Positive for back pain. Negative for arthralgias. Has had lower back pain for a few days without injury making it very difficult to sit down for any length of time. Skin: Negative. Allergic/Immunologic: Negative. Neurological: Negative. Negative for dizziness, syncope, weakness, light- headedness, numbness and headaches. Hematological: Negative. Negative for adenopathy. Does not bruise/bleed easily. Psychiatric/Behavioral: Positive for agitation. Negative for dysphoric mood. The patient is nervous/anxious. Very nervous today and just wants to get the treatment over. All other systems reviewed and are negative. Objective: aspirin 325 mg tablet Take 325 mg by mouth daily. Take with food. dexamethasone (DECADRON) 4 mg tablet Take with food. 8 mg in AM on days 2-4 each cycle. DIPHENHYDRAMINE HCL (ALLERGY MEDICATION PO) Take by mouth. HYDROQUINONE TP Apply topically to affected area. lidocaine/prilocaine (EMLA) 2.5/2.5 % topical cream apply one hour prior to port access ondansetron (ZOFRAN) 8 mg tablet Take 1 Tab by mouth every 8 hours as needed for Nausea or Vomiting. prochlorperazine maleate (COMPAZINE) 10 mg tablet Take 1 Tab by mouth every 6 hours as needed for Nausea or Vomiting. Vitals: 01/28/17 1326 BP: 145/77 Pulse: 118 Resp: 18 Temp: 36.6 C (97.9 F) TempSrc: Oral SpO2: 99% Weight: 44.4 kg (97 lb 12.8 oz) Height: 139.7 cm (55") Body mass index is 22.73 kg/(m^2). Pain Score: Five Pain Loc: Back Pain Addressed: Prescription provided for pain management and Current regimen working to control pain. Patient Evaluated for a Clinical Trial: No treatment clinical trial available for this patient. Eastern Cooperative Oncology Group performance status is 0, Fully active, able to carry on all pre-disease performance without restriction.. Physical Exam Constitutional: She is oriented to person, place, and time. She appears well- developed. No distress. 7 pound weight loss in the last week, patient mildly agitated and anxious. Difficult to perform physical exam due to agitation and desire to get treatment over HENT: Head: Normocephalic and atraumatic. Nose: Nose normal. Mouth/Throat: Oropharynx is clear and moist. Eyes: Conjunctivae and EOM are normal. Pupils are equal, round, and reactive to light. No scleral icterus. Neck: Normal range of motion. Neck supple. Cardiovascular: Normal rate, regular rhythm and intact distal pulses. Hypotensive tachycardic likely secondary to anxiety Pulmonary/Chest: Effort normal and breath sounds normal. No respiratory distress. She exhibits no tenderness. Abdominal: Soft. Bowel sounds are normal. There is no tenderness. Musculoskeletal: Normal range of motion. She exhibits no edema or tenderness. Moderate lower back pain, with no obvious bruising or injury. Unable to image spine due to patient preference. Lymphadenopathy: Head (right side): No submental, no submandibular, no tonsillar, no preauricular, no posterior auricular and no occipital adenopathy present. Head (left side): No submental, no submandibular, no tonsillar, no preauricular, no posterior auricular and no occipital adenopathy present. She has no cervical adenopathy. Right cervical: No superficial cervical, no deep cervical and no posterior cervical adenopathy present. Left cervical: No superficial cervical, no deep cervical and no posterior cervical adenopathy present. She has no axillary adenopathy. Right: No supraclavicular and no epitrochlear adenopathy present. Left: No supraclavicular and no epitrochlear adenopathy present. Neurological: She is alert and oriented to person, place, and time. Skin: Skin is warm and dry. There is pallor. Visual inspection of left breast revealed markedly improved improved skin lesion. Port flushed and patent without complication. Psychiatric: She has a normal mood and affect. Her behavior is normal. Judgment and thought content normal. Vitals reviewed. Comprehensive Metabolic Profile Lab Results Component Value Date/Time NA 139 01/28/2017 01:53 PM K 3.4 (L) 01/28/2017 01:53 PM CL 104 01/28/2017 01:53 PM CO2 27 01/28/2017 01:53 PM GAP 8 01/28/2017 01:53 PM BUN 9 01/28/2017 01:53 PM CR 0.57 01/28/2017 01:53 PM GLU 113 (H) 01/28/2017 01:53 PM Lab Results Component Value Date/Time CA 9.4 01/28/2017 01:53 PM ALBUMIN 3.8 01/28/2017 01:53 PM TOTPROT 6.5 01/28/2017 01:53 PM ALKPHOS 95 01/28/2017 01:53 PM AST 14 01/28/2017 01:53 PM ALT 10 01/28/2017 01:53 PM TOTBILI 0.2 (L) 01/28/2017 01:53 PM GFR >60 01/28/2017 01:53 PM GFRAA >60 01/28/2017 01:53 PM Assessment and Plan: Primary Diagnosis: Diagnosed with left breast cancer in July after noting a rash for about one year - Stage III (cT4b N2 M0) strongly hormone positive, HER-2 negative invasive ductal carcinoma of the left breast. Bilateral diagnostic mammogram and ultrasound performed at [facility] in [place] showed an approximately 4 cm left breast mass highly concerning for malignancy. At least 2 left axillary lymph nodes appeared suspicious. In the right breast there is a region of pleomorphic microcalcifications that were also somewhat suspicious. Core needle biopsy of the right breast revealed fibrocystic change. Core needle biopsies of the left breast and left axilla both revealed invasive ductal carcinoma, grade 2, ER 98%, MI 89%, HER-2 0+ Ki-67 37%. CT CAP and bone scan negative for metastatic disease. Small pancreatic lesions. 09/20/16 - weekly Taxol started, to be followed with ddAC. Plan: Continued with last cycle of DD AC today. Offered to hold for one week to allow for blood count recovery, but she insisted on having her last treatment. Heme: CBC - worsening anemia, with hgb 8.6 - Naye is pale, and tachycardic - likely anxiety, but concern is for worsening anemia, and dehydration. 7 lb weight loss since 01/20/17. Notified sunil Ferrell. NS 500 ml given in infusion CMP - K=3.4 - would like to check cmp and cbc in one week, and will offer a lab check early next week. Will call to check up on Tuesday01/31/17. MRI scheduled for 02/14/17. Leucocytosis: likely 2/2 neulasta, without fever, chills, dysuria, cough/ sinus drainage. Would like to repeat cbc in one week, will offer this idea to Naye. Anxiety: very anxious - tachycardic, hypertensive - ativan 1 mg given while in infusion room. Lower back pain: morphine 1 mg given while in infusion. She refused any imaging at this time. Will follow up early next week to see how she is doing, and revisit the idea prn. Script given for tramadol 50 mg po q 6 hrly prn for moderate to severe pain Advised tylenol or NSAIDs for mild to moderate pain Breast surgery - Dr. Oliver following. RTC on 02/15/[address] Eaton, labs and discuss results of MRI. Call with any new or worsening symptoms. in this encounter Plan of Treatment Not on fileas of this encounter Visit Diagnoses Diagnosis Malignant neoplasm of upper-outer quadrant of left breast in female, estrogen receptor positive (HCC) - Primary in this encounter
--- OUTSIDE RECORDS SUMMARY | 2017-02-08 12:23 | XMS REPORT | Encounter Summary ---
Author Author [facility] Organization [facility] Address Unknown Phone Unavailable Care Team Providers Care Contact Lens Inspector Name Role Phone PCP Unavailable Reason for Visit * Reason Comments Fatigue Encounter Details Date Type Department Care Team Description 01/26/[address] [facility] Audrey Mendes RN [facility] - OP Exam [address] [id number] Social History Tobacco Use Types Packs/Day Years Used Date Never Smoker Smokeless Tobacco: Never Used Alcohol Use Drinks/Week oz/Week Comments No 0 Standard 0.0 drinks or equivalent Sex Assigned at Date Recorded Not on file as of this encounter Functional Status Functional Status Response Date of Assessment Does the patient have a hearing impairment: No 01/17/2017 Does the patient have a visual impairment: Yes 01/17/2017 Does the patient have impaired ambulation: No 01/17/2017 Does the patient have an activity of daily living No 01/17/2017 (ADL) impairment: Does the patient have an instrumental activity of No 01/17/2017 daily living (IADL) impairment: Cognitive Status Response Date of Assessment Does the patient have a cognitive impairment: No 01/17/2017 as of this encounter Plan of Treatment Not on fileas of this encounter Visit Diagnoses Not on filein this encounter
--- OUTSIDE RECORDS SUMMARY | 2017-02-08 12:23 | XMS REPORT | Encounter Summary ---
Author Author [facility] Organization [facility] Address Unknown Phone Unavailable Care Team Providers Care Ultrasonic Solderer Name Role Phone PCP Unavailable Reason for Visit * Treatment (Routine) Status Reason Specialty Diagnoses / Referred By Referred To Procedures Contact Contact Authorized Hematology and Diagnoses Rafael Hemphill Marc S, Oncology Malignant [place], [place] [address] upper-outer [place], [place], [place] quadrant [place] [id number] female breast Phone: Phone: ([facility]) [phone] DOXOrubicin Fax: (ADRIAMYCIN) - [phone] J9000; Cyclophosphamide (CYTOXAN) - J9070; Pegfilgrastim (NEULASTA) J2505; Aloxi-J2469;Emen d-J1453 P rocedures AC NEULASTA Encounter Details Date Type Department Care Team Description 01/28/2017 [facility] Leslie Gorman, [facility] - OP AUTOMOTIVE QUALITY MANAGER Treatment [address] [place] [address] [place], [place] [phone] Social History Tobacco Use Types Packs/Day Years [...] impairment: No 01/28/2017 as of this encounter Discharge Instructions * Patient Instructions - Diane Washington RN - 01/28/2017 4:38 PM CDT Call Immediately to report the following: Uncontrolled nausea and/or vomiting, uncontrolled pain, or unusual bleeding. Temperature of 100.4 F or greater and/or any sign/symptom of infection (redness , warmth, tenderness) Painful mouth or difficulty swallowing Red, cracked, or painful hands and/or feet Diarrhea Swelling of arms or legs Rash Important Phone Numbers: OP Cancer Center Main Number (answered 24 hours a day) [phone] Cancer Center Scheduling (appointments) [phone] [id number] Cancer Action (for nutritional supplements) [phone] in this encounter Medications at Time of [...] hours as needed for Nausea or Vomiting. traMADol (ULTRAM) 50 mg Take 1 tablet by mouth 30 tablet 0 01/28/2017 tabletIndications: PAIN every 6 hours as needed for Pain. Indications: PAIN as of this encounter Progress Notes * Diane Washington RN - 01/28/2017 4:33 PM CDT CHEMO NOTE Verified chemo consent signed and in chart. Verified initiate chemo order in O2 Blood return positive via: Port (Single, Power Port and Accessed) BSA and dose double checked (agree with orders as written) with: yes Labs/applicable tests checked: CBC and CMP Chemo regime: Drug/cycle/dayCycle 4 Day 1 AC Rate verified and armband double checkwith second RN: yes Patient education offered and stated understanding. Denies questions at this time. Port accessed for labs and treatment. Patient was assessed by Nurse Practitioner in clinic today. Labs within normal limits for treatment. Hydration fluids, premeds and pain medication for back pain administered as ordered. Treatment administered as ordered. Vesicant precautions maintained throughout. Therapy completed and tolerated well. Received relief from pain. Discharged home ambulatory. in this encounter Plan of Treatment Not on fileas of this encounter Visit Diagnoses Diagnosis Malignant neoplasm of upper-outer quadrant of left breast in female, estrogen receptor positive (HCC) in this encounter Administered Medications Medication Order MAR Action Action Date Dose Rate Site cyclophosphamide (CYTOXAN) 816 mg in Given - New 01/28/2017 816 mg 581.6 mL/hr sodium chloride 0.9% (NS) 290.8 mL IVPB Bag 16:00 CDT 816 mg (600 mg/m2 1.36 m2 Treatment plan recorded BSA), Intravenous, 290.8 mL, Administer over 0.5 Hours, ONCE, 1 dose, Tue01/28/17 at 1500, NURSING: To be administered by Chemotherapy Competency-validated nurse. NOTE: This is a HIGH ALERT Medication. SPECIAL TUBING REQUIRED dexamethasone (DECADRON) tablet 12 mg Given 01/28/2017 12 mg 12 mg, Oral, ONCE, 1 dose, Tue01/28/17 14:46 CDT at 1430 DOXOrubicin (ADRIAMYCIN) injection 81.6 Given 01/28/2017 81.6 mg mg 15:54 CDT 81.6 mg (60 mg/m2 1.36 m2 Treatment plan recorded BSA), Intravenous, ONCE, 1 dose, Tue01/28/17 at 1500, Give IV Push over 3-5 minutes. PROTECT FROM LIGHT NURSING: To be administered by Chemotherapy Competency-validated nurse. NOTE: This is a HIGH ALERT Medication. SPECIAL TUBING REQUIRED fosaprepitant (EMEND) 150 mg in sodium Given - New 01/28/2017 150 mg 450 mL/hr chloride 0.9% (NS) 150 mL IVPB Bag 15:02 CDT 150 mg, Intravenous, 150 mL, Administer over 20 Minutes, ONCE, 1 dose, Tue01/28/17 at 1430 heparin lock flush PF syringe 500 Units Given 01/28/2017 500 Units 500 Units, Intra-catheter, ONCE, 1 dose, 16:49 CDT Tue01/28/17 at 1700, NOTE: This is a HIGH ALERT Medication. LORazepam (ATIVAN) injection 1 mg Given 01/28/2017 1 mg 1 mg, Intravenous, ONCE, 1 dose, Tue 14:58 CDT 01/28/17 at 1430, PROTECT FROM LIGHT morphine injection syringe 1 mg Given 01/28/2017 1 mg 1 mg, Intravenous, ONCE, 1 dose, Tue 14:47 CDT 01/28/17 at 1430, Cancer Center Infusion palonosetron(+) (ALOXI) injection 0.25 Given 01/28/2017 0.25 mg mg 14:44 CDT 0.25 mg, Intravenous, ONCE, 1 dose, Tue01/28/17 at 1430 sodium chloride 0.9 % infusion Given - New 01/28/2017 500 mL 500 mL/ hr 500 mL, 500 mL, Intravenous, at 500 Bag 15:25 CDT mL/hr, ONCE, 1 dose, Tue01/28/17 at 1430, Cancer Center Infusion in this encounter
--- OUTSIDE RECORDS SUMMARY | 2017-02-08 12:23 | XMS REPORT | Encounter Summary ---
Author Author [facility] Organization [facility] Address Unknown Phone Unavailable Care Team Providers Care Smoking Pipe Driller And Threader Name Role Phone PCP Unavailable Reason for Visit * Reason Comments Heme/Onc Care Encounter Details Date Type Department Care Team Description 01/20/2017 Office Visit [facility] Martha Oliver MD Malignant neoplasm of Cancer Center - [facility] Exam [address] upper-outer quadrant of [address] [place] [address] left breast in female, [place] [address] [place] [address] estrogen receptor [phone] positive (HCC) (Primary Dx) M Becky romero PA-C [address] [place] [address] [phone] Social History Tobacco Use Types Packs/Day Years Used Date Never Smoker Smokeless Tobacco: Never Used Alcohol Use Drinks/Week oz/Week Comments No 0 Standard 0.0 drinks or equivalent Sex Assigned at Date Recorded Not on file as of this encounter Last Filed Vital Signs Vital Sign Reading Time Taken Blood Pressure 124/70 01/20/2017 1:36 PM CDT Pulse 105 01/20/2017 1:36 PM CDT Temperature 36.8 C (98.2 F) 01/20/2017 1:36 PM CDT Respiratory Rate 16 01/20/2017 1:36 PM CDT Oxygen Saturation 99% 01/20/2017 1:36 PM CDT Inhaled Oxygen - - Concentration Weight 47.4 kg (104 lb 6.4 oz) 01/20/2017 1:36 PM CDT Height 139.7 cm (4' 7") 01/20/2017 1:36 PM CDT Body Mass Index 24.26 01/20/2017 1:36 PM CDT in this encounter Functional Status [...] impairment: No 01/17/2017 as of this encounter Progress Notes * Becky Alex PA-C - 01/20/2017 2:00 PM CDT Formatting of this note may be different from the original. Date of Service: 01/20/2017 Malignant neoplasm of upper-outer quadrant of left breast in female, estrogen receptor positive (HCC) Staging form: Breast, AJCC 7th Edition - Clinical: Stage IIIB (T4b, N2, M0) - Signed by Rafael Hemphill MD on 2016 DIAGNOSIS: Left grade 2 IDC (ER98%, PR89%, HER2 0, Ki-67 37%) at 2:00 with involved lymph node, dx 07/2016 History of Present Illness Ms. Harvey returns to the clinic today for final surgical planning. HISTORY: Ms. Harvey is a female who [...] Mammogram: -- Bilateral diagnostic mammogram 08/03/16 ([facility]) revealed in the left upper outer breast at 2:00, 3 cm FTN there was a 3 x 2 cm hypodense region with irregular margins containing pleomorphic calcifications and two large coarse calcifications. There was associated skin thickening and nipple retraction. In the right breast at 2-2:30, 6 cm FTN there was a region of grouped pleomorphic calcifications. Ultrasound: -- Bilateral breast ultrasound 08/03/16 ([place]) revealed a 4.1 x 2.8 cm mass [...] noted. Staging studies: -- CT CAP 09/03/16 () revealed Chest: 1. Irregular left breast mass [...] Abdomen and Pelvis: 1. No evidence of abdominal/ pelvic metastatic disease. 2. Scattered low-density liver lesions, [...] revealed no scintigraphic evidence of osseous metastatic disease.Mild asymmetric radionuclide uptake within the soft tissues [...] started 09/20/16. REFERRED BY: Tiffany Hendrix APRN Review of Systems Constitutional: Negative for fever, chills, appetite change and fatigue. HENT: Negative for hearing loss, congestion, rhinorrhea and tinnitus. Eyes: Negative for pain, discharge and itching. Respiratory: Negative for cough, chest tightness and shortness of breath. Cardiovascular: Negative for chest pain and palpitations. Gastrointestinal: Negative for abdominal distention, pain, nausea, vomiting, and diarrhea. Genitourinary: Negative for frequency, vaginal bleeding, difficulty urinating and pelvic pain. Musculoskeletal: Negative for myalgias, back pain, joint swelling and arthralgias. Skin: Negative for rash. Neurological: Negative for dizziness, weakness, light-headedness and headaches. Hematological: Does not bruise/bleed easily. Psychiatric/Behavioral: Negative for disturbed wake/sleep cycle. The patient is not nervous/anxious. The following medical/surgical/family/social history and the list of medications are current, as of 01/20/2017 Past Medical History: Diagnosis Date Breast cancer, left (HCC) 07/2016 Stage III ([id number]) strong hormone +, HER-2 negative IDC. Hepatic lesion 09/03/16 multiple low-density liver lesions too small to characterized per CT staging. Pancreatic lesion 03/17/17 small low-density proximal pancreatic lesion per staging scan. Rash 2016 covers 06/27 of L breast. 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 Vitals: 01/20/17 1336 BP: 124/70 Pulse: 105 Resp: 16 Temp: 36.8 C (98.2 F) TempSrc: Oral SpO2: 99% Weight: 47.4 kg (104 lb 6.4 oz) Height: 139.7 cm (55") Body mass index is 24.26 kg/(m^2). Pain Score: Zero Pain Addressed: N/A Eastern Cooperative Oncology Group performance status is 0, Fully active, able to carry on all pre-disease performance without restriction.. Physical Exam RIGHT BREAST EXAM: Breast: No palpable breast masses. No skin, nipple, or areolar change. Skin Erythema: No Attachment of Overlying Skin: No Peau d' orange: No Chest Wall Attachment: No Nipple Inversion: No Nipple Discharge: No LEFT BREAST EXAM: Breast: Density behind the NACwith surrounding eyrthema, particularly noted to the medial and inferior breast; improved since initial presentation. Nipple retraction and skin crusting noted to the areola was noted. Skin Erythema: Yes Attachment of Overlying Skin: No Peau d' orange: No Chest Wall Attachment: No Nipple Inversion: No Nipple Discharge: No RIGHT CRISTINA BASIN EXAM: Axillary: negative Infraclavicular: negative Supraclavicular: negative LEFT CRISTINA BASIN EXAM: Axillary: negative Infraclavicular: negative Supraclavicular: negative Constitutional: Well-developed and well-nourished. No acute distress. HEENT: Head: Normocephalic and atraumatic. Eyes: No discharge. No scleral icterus. Cardiovascular: Normal rate, regular rhythm and normal heart sounds. No murmur or gallop. Pulmonary/Chest: Effort normal and breath sounds normal. No respiratory distress. No wheezes. No rales. Musculoskeletal: No edema. Lymphadenopathy: No axillary adenopathy. No infraclavicular or supraclavicular adenopathy. Neurological: Alert and oriented to person, place and time. No cranial nerve deficit. Skin: Warm and dry. No rash noted. No erythema. No pallor. Psychiatric: Normal mood and affect. Behavior is normal. Judgement and thought content normal. Assessment and Plan: 66 y/o female with left grade 2 IDC (ER98%, PR89%, HER2 0, Ki-67 37%) at 2:00 with involved lymph node, dx 07/2016. Stage IIIB, [id number] Ms. Harvey is tolerating neoadjuvant chemotherapy, and is having a good response based on clinical exam. Her mass is much smaller and her skin involvement is improved, but not resolved. Her last treatment is scheduled for 01/28/17, and she will continue to follow with Dr. Hemphill. Ms. Harvey is in need of mastectomy due to the extent of her disease. We discussed that her persistent skin changes warrant involvement of plastic surgery for closure, and PRS consultation will be arranged for her. She is not a candidate for immediate reconstruction. Because of the amount of axillary disease, Ms. Harvey needs a left ALND. She has been seen in the [facility]ymphedema Clinic for education and measurements. Ms. Harvey needs PMRT, and has previously met with Dr. Hernandez today to discuss this. Ms. Harvey reported that she was told by Dr. Hemphill that she could start endocrine therapy after she completes chemotherapy for additional treatment and to allow her to postpone surgery until her Nay break in May. We discussed that this is not the typical approach to treatment or in keeping with the standard of care, and we would not recommend delaying surgery d/t concern over disease progression, but we will discuss this with Dr. Hemphill for confirmation regarding her plan for neoadjuvant therapy. Ms. Harvey did not wish to schedule any additional appointments today, including consultation with PRS, and she declined to discuss surgery dates, and post operative teaching as well. Consent was not obtained either as Ms. Harvey declined this as well. We will follow up with her once we receive clarification regarding her treatment plan from Dr. Hemphill. She was seen and evaluated by Dr. Oliver. 1. Continue to follow with Dr. Hemphill for neoadjuvant chemotherapy - clarify treatment plan with Dr. Hemphill 2. Plan for left MRM/closure with PRS 3. Follow up with Dr. Hernandez post op 4. Continue to follow in the lymphedema clinic 5. RTC 1-2 weeks post op Becky Alex PA-C in this encounter Plan of Treatment Not on fileas of this encounter Visit Diagnoses Diagnosis Malignant neoplasm of upper-outer quadrant of left breast in female, estrogen receptor positive (HCC) - Primary in this encounter
--- OUTSIDE RECORDS SUMMARY | 2017-02-08 12:23 | XMS REPORT | Encounter Summary ---
Author Author [facility] Address Unknown Phone Unavailable Care Team Providers Care Hotel Recreational Facilities Manager Name Role Phone PCP Unavailable Reason for Visit * Reason Comments Heme/Onc Care Encounter Details Date Type Department Care Team Description 01/14/2017 Office Visit The [facility] Irasema Lopez APRN Malignant neoplasm of Cancer Center - OP Exam [address] upper-[place] [address] [place] [address] left breast in female, [place], [place] [phone] estrogen receptor [id number] positive (HCC) (Primary [phone] Dx) Social History Tobacco Use Types Packs/Day Years Used Date Never Smoker Smokeless Tobacco: Never Used Alcohol Use Drinks/Week oz/Week Comments No 0 Standard 0.0 drinks or equivalent Sex Assigned at Date Recorded Not on file as of this encounter Last Filed Vital Signs Vital Sign Reading Time Taken Blood Pressure 139/72 01/14/2017 10:23 AM CDT Pulse 110 01/14/2017 10:23 AM CDT Temperature 36.3 C (97.3 F) 01/14/2017 10:23 AM CDT Respiratory Rate 18 01/14/2017 10:23 AM CDT Oxygen Saturation 99% 01/14/2017 10:23 AM CDT Inhaled Oxygen - - Concentration Weight 46.4 kg (102 lb 3.2 oz) 01/14/2017 10:23 AM CDT Height 139.7 cm (4' 7") 01/14/2017 10:23 AM CDT Body Mass Index 23.75 01/14/2017 10:23 AM CDT in this encounter Functional Status Functional [...] impairment: No 01/14/2017 as of this encounter Progress Notes * Irasema Lopez APRN - 01/14/2017 10:30 AM CDT Formatting of this note may be different from the original. Date of Service: 01/14/2017 Subjective: Reason for Visit: Heme/Onc Care Naye Harvey is a 66 y.o. female. Malignant neoplasm of upper-outer quadrant of left breast in female, estrogen receptor positive (HCC) Staging form: Breast, AJCC 7th Edition - Clinical: Stage IIIB (T4b, N2, M0) - Signed by Rafael Hemphill MD on 2016 History of Present Illness Naye Harvey presents today for cycle 3 of ddAC for management of breast cancer. 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 She had not had a mammogram since 2000. 2. Bilateral diagnostic mammogram and ultrasound performed at [facility] in [place] showed an approximately 4 cm left breast [...] invasive ductal carcinoma, grade 2, ER 98%, [place] 89%, HER-2 0+ Ki-67 37%. 5. CT CAP and bone scan negative for metastatic disease. 6. Discussed in multidisciplinary conference and katalina-adjuvant chemotherapy recommended. 7. Weekly Taxol -> ddAC started 09/20/16 Interim History: Doing well. Her biggest concern is needing to make changes to her schedule with school starting. Worst part was fatigue. Back to feeling well today. Her breast lesion is "a lot better." No fevers or infections. No neuropathy. No interim infections, hospitalizations or transfusions. Review of Systems All other systems reviewed and are negative. [...] as needed for Nausea or Vomiting. Vitals: 01/14/17 1023 BP: 139/72 Pulse: 110 Resp: 18 Temp: 36.3 C (97.3 F) TempSrc: Oral SpO2: 99% Weight: 46.4 kg (102 lb 3.2 oz) Height: 139.7 cm (55") Body mass index is 23.75 kg/(m^2). Pain Score: Zero Pain Addressed: N/A Patient Evaluated for a Clinical Trial: No treatment clinical trial available for this patient. Eastern Cooperative Oncology Group performance status is 0, Fully active, able to carry on all pre-disease performance without restriction.. Physical Exam Constitutional: She appears well-developed. No distress. HENT: Head: Normocephalic. Eyes: Conjunctivae are normal. No scleral icterus. Neck: Neck supple. Cardiovascular: Normal rate and regular rhythm. Pulmonary/Chest: Effort normal and breath sounds normal. Large left breast mass with skin involvement, significantly better than prior exams. She remains with extensive disease around the nipple. Her left axillary lymph node disease is improved with only one small palpable node Abdominal: Soft. Musculoskeletal: She exhibits no edema. Lymphadenopathy: No palpable cervical, supraclavicular, axillary or inguinal adenopathy. Neurological: She is alert. Psychiatric: She has a normal mood and affect. Nursing note and vitals reviewed. CBC w/Diff Lab Results Component Value Date/Time WBC 18.7 (H) 01/14/2017 10:40 AM RBC 3.01 (L) 01/14/2017 10:40 AM HGB 9.7 (L) 01/14/2017 10:40 AM HCT 29.4 (L) 01/14/2017 10:40 AM MCV 97.8 01/14/2017 10:40 AM MCH 32.2 01/14/2017 10:40 AM MCHC 32.9 01/14/2017 10:40 AM RDW 14.5 01/14/2017 10:40 AM PLTCT 239 01/14/2017 10:40 AM MPV 8.2 01/14/2017 10:40 AM Lab Results Component Value Date/Time NEUT 16 (L) 12/24/2016 01:59 PM ANC 15.71 (H) 01/14/2017 10:40 AM ANC 0.10 (L) 12/24/2016 01:59 PM LYMA 65 (H) 12/24/2016 01:59 PM ALC 0.40 (L) 12/24/2016 01:59 PM MICHAEL 8 12/24/2016 01:59 PM AMC 0.00 12/24/2016 01:59 PM EOSA 10 (H) 12/24/2016 01:59 PM AEC 0.10 12/24/2016 01:59 PM BASA 1 12/24/2016 01:59 PM ABC 0.00 12/24/2016 01:59 PM Assessment and Plan: Stage III (cT4b N2 M0) strongly hormone positive, HER-2 negative invasive ductal carcinoma of the left breast with extensive skin involvement responding to weekly Taxol and will now at Cycle 3 of ddAC PLAN: Cycle 3 of ddAC today. Questions and concerns addressed. We will try to work with her scheduling concerns with regards to MRI and cycle 4 of treatment. She is in agreement with plan. in this encounter Plan of Treatment Not on fileas of this encounter Visit Diagnoses Diagnosis Malignant neoplasm of upper-outer quadrant of left breast in female, estrogen receptor positive (HCC) - Primary in this encounter
--- OUTSIDE RECORDS SUMMARY | 2017-02-08 12:23 | XMS REPORT | Encounter Summary ---
Author Author [facility] Organization [facility] Address Unknown Phone Unavailable Care Team Providers Care Mobile Mechanic Name Role Phone PCP Unavailable Encounter Details Date Type Department Care Team Description 01/28/2017 Hospital [facility] Martha Oliver MD Encounter Cancer Center - OP Lab [address] [place] [address] [address] [phone] Social History Tobacco Use Types Packs/Day Years [...] impairment: No 01/28/2017 as of this encounter Medications at Time of Discharge [...] Pain. Indications: PAIN as of this encounter Plan of Treatment Not on fileas of this encounter Results * COMPREHENSIVE METABOLIC PANEL (01/28/2017 1:53 PM) Component Value Ref Range Sodium 139 137 [...] Performing Laboratory Blood [facility] [address] [place] [address] * CBC AND DIFF (01/28/2017 1:53 PM) Component Value Ref Range White Blood Cells [...] 7.0 K/UL Manual Specimen Performing Laboratory Blood [facility] [address] [address] in this encounter Visit Diagnoses Diagnosis Malignant neoplasm of upper-outer quadrant of left breast in female, estrogen receptor positive (HCC) in this encounter
--- OUTSIDE RECORDS SUMMARY | 2017-02-08 12:23 | XMS REPORT | Encounter Summary ---
Author Author [facility] Organization [facility] Address Unknown Phone Unavailable Care Team Providers Care Assistant Public Defender Name Role Phone PCP Unavailable Encounter Details Date Type Department Care Team Description 01/14/2017 Hospital [facility] Irasema Lopez APRN Encounter Cancer Center - OP Lab [address] [place] [id number] [place] [address] [phone] Social History Tobacco Use Types Packs/Day Years [...] impairment: No 01/14/2017 as of this encounter Medications at Time [...] Nausea or Vomiting. as of this encounter Plan of Treatment Not on fileas of this encounter Results * COMPREHENSIVE METABOLIC PANEL (01/14/2017 10:40 AM) Component Value Ref Range Sodium 141 137 - 147 MMOL/L Potassium 4.2 3.5 - 5.1 MMOL/L Chloride 108 98 - 110 MMOL/L Glucose 104 (H) 70 - 100 MG/DL Blood Urea Nitrogen 12 7 - 25 MG/DL Creatinine 0.44 0.4 - 1.00 MG/DL Calcium 9.2 8.5 - 10.6 MG/DL Total Protein 6.1 6.0 - 8.0 G/DL Total Bilirubin 0.2 (L) 0.3 - 1.2 MG/DL Albumin 3.6 3.5 - 5.0 G/DL Alk Phosphatase 104 25 - 110 U/L AST (SGOT) 12 7 - 40 U/L CO2 27 21 - 30 MMOL/L ALT (SGPT) 8 7 - 56 U/L Anion Gap 6 3 - 12 eGFR Non >60 >60 [...] Performing Laboratory Blood [facility] [address] [place] [address] * CBC AND DIFF (01/14/2017 10:40 AM) Component Value Ref Range White Blood Cells 18.7 (H) 4.5 - 11.0 K/UL RBC 3.01 (L) 4.0 - 5.0 M/UL Hemoglobin 9.7 (L) 12.0 - 15.0 GM/DL Hematocrit 29.4 (L) 36 - 45 % MCV 97.8 80 - 100 FL MCH 32.2 26 - 34 PG MCHC 32.9 32.0 - 36.0 G/DL RDW 14.5 11 - 15 % Platelet Count 239 150 - 400 K/UL MPV 8.2 7 - 11 FL Nucleated RBCs 4 K/UL Segmented Neutrophils 69 41 - 77 % Bands 15 (H) 0 - 10 % Lymphocytes 7 (L) 24 - 44 % Monocytes 3 (L) 4 - 12 % Eosinophil 1 0 - 5 % Metamyelocyte 5 % HYPO PRESENT POLY PRESENT Platelet Estimate NORMAL Absolute Neutrophil Count 15.71 (H) 1.8 - 7.0 K/UL Manual Specimen Performing Laboratory Blood [facility] [address] [address] in this encounter Visit Diagnoses Diagnosis Malignant neoplasm of upper-outer quadrant of left breast in female, estrogen receptor positive (HCC) in this encounter
--- OUTSIDE RECORDS SUMMARY | 2017-02-08 12:23 | XMS REPORT | Encounter Summary ---
Author Author [facility] Organization [facility] Address Unknown Phone Unavailable Care Team Providers Care Director Network Development Name Role Phone PCP Unavailable Reason for Visit * Reason Comments Heme/Onc Care * Treatment (Routine) Status Reason Specialty Diagnoses / Referred By Referred To Procedures Contact Contact Authorized Hematology and Diagnoses Rafael Hemphill Marc S, Oncology Malignant [place] [address] upper-outer [place], [place] [address] female breast Phone: Phone: (HCC) [phone] DOXOrubicin Fax: (ADRIAMYCIN) - [phone] J9000; Cyclophosphamide (CYTOXAN) - J9070; Pegfilgrastim (NEULASTA) J2505; Aloxi-J2469;Emen d-J1453 P endy AC NEULASTA Encounter Details Date Type Department Care Team Description 01/17/2017 Hospital [facility] Irasema Lopez [place] [address] [place] [address] [phone] [place] [address] Social History Tobacco Use Types Packs/Day Years Used Date Never Smoker Smokeless Tobacco: Never Used Alcohol Use Drinks/Week oz/Week Comments No 0 Standard 0.0 drinks or equivalent Sex Assigned at Date Recorded Not on file as of this encounter Last Filed Vital Signs Vital Sign Reading Time Taken Blood Pressure 128/53 01/17/2017 11:23 AM CDT Pulse 87 01/17/2017 11:23 AM CDT Temperature 36.6 C (97.8 F) 01/17/2017 11:23 AM CDT Respiratory Rate 18 01/17/2017 11:23 AM CDT Oxygen Saturation 98% 01/17/2017 11:23 AM CDT Inhaled Oxygen - - Concentration Weight 47.7 kg (105 lb 3.2 oz) 01/17/2017 11:23 AM CDT Height 139.7 cm (4' 7") 01/17/2017 11:23 AM CDT Body Mass Index 24.45 01/17/2017 11:23 AM CDT in this encounter Functional Status [...] impairment: No 01/17/2017 as of this encounter Discharge Instructions * Patient Instructions - Natalya Elias RN - 01/17/2017 11:23 AM CDT Call Immediately to report the following: Uncontrolled nausea and/or vomiting, uncontrolled pain, or unusual bleeding. Temperature of 100.4 F or greater and/or any sign/symptom of infection (redness , warmth, tenderness) Painful mouth or difficulty swallowing Red, cracked, or painful hands and/or feet Diarrhea Swelling of arms or legs Rash Important Phone Numbers: Cancer Center Main Number (answered 24 hours a day) [phone] Cancer Center Scheduling (appointments) [phone] OR [phone] [facility] Action (for nutritional supplements) [phone] in this encounter Medications at Time of [...] as of this encounter Progress Notes * Natalya Elias, RN - 01/17/2017 12:00 PM CDT Pt returns for neulasta. Pt states she is doing well and denies complaints. Pt is here alone. Pt discharged in stable condition after injection. in this encounter Plan of Treatment Not on fileas of this encounter Visit Diagnoses Diagnosis Malignant neoplasm of upper-outer quadrant of left breast in female, estrogen receptor positive (HCC) in this encounter Administered Medications Medication Order MAR Action Action Date Dose Rate Site pegfilgrastim (NEULASTA) syringe 6 mg Given 01/17/2017 6 mg Arm, Right 6 mg, Subcutaneous, ONCE, 1 dose, Mon 11:38 CDT 01/17/17 at 1130, -- Not for IV Push administration -- in this encounter
--- OUTSIDE RECORDS SUMMARY | 2017-02-08 12:23 | XMS REPORT | Encounter Summary ---
Author Author [facility] Organization [facility] Address Unknown Phone Unavailable Care Team Providers Care Molding Machine Operator Name Role Phone PCP Unavailable Reason for Visit * Reason Comments Appointment Pre-op appt with Dr. Martha Oliver Encounter Details Date Type Department Care Team Description 01/07/2017 Telephone [facility] Martha Oliver MD Appointment (Pre-op appt Cancer Center - [facility] Exam [address] Martha Oliver) [address] [place] [address] [place] [address] [phone] Social History Tobacco Use Types Packs/Day Years [...]
--- OUTSIDE RECORDS SUMMARY | 2017-02-08 12:24 | XMS REPORT | Encounter Summary ---
Author Author [facility] Organization [facility] Address Unknown Phone Unavailable Care Team Providers Care Tricot Knitter Name Role Phone PCP Unavailable Reason for Visit * Reason Comments Chemotherapy * Treatment (Routine) Status Reason Specialty Diagnoses / Referred By Referred To Procedures Contact Contact Authorized Hematology and Diagnoses Rafael Hemphill Marc S, Oncology Malignant [place] [address] [facility], [place] [address] female breast Phone: Phone: ([facility]) [phone] DOXOrubicin Fax: (ADRIAMYCIN) - [phone] J9000; Cyclophosphamide (CYTOXAN) - J9089; Pegfilgrastim (NEULASTA) J2505; Aloxi-J2469;Emen d-J1453 P rocedures AC NEULASTA Encounter Details Date Type Department Care Team Description 12/31/2016 Hospital [facility] Rafael Hemphill [place] [address] [place] [address] [phone] [place] [address] Social History Tobacco Use Types Packs/Day Years Used Date Never Smoker Smokeless Tobacco: Never Used Alcohol Use Drinks/Week oz/Week Comments No 0 Standard 0.0 drinks or equivalent Sex Assigned at Date Recorded Not on file as of this encounter Functional Status Functional Status Response Date of Assessment Does the patient have a hearing impairment: No 12/31/2016 Does the patient have a visual impairment: Yes 12/31/2016 Does the patient have impaired ambulation: No 12/31/2016 Does the patient have an activity of daily living No 12/31/2016 (ADL) impairment: Does the patient have an instrumental activity of No 12/31/2016 daily living (IADL) impairment: Cognitive Status Response Date of Assessment Does the patient have a cognitive impairment: No 12/31/2016 as of this encounter Discharge Instructions * Patient Instructions - Diane Washington RN - 12/31/2016 12:46 PM CDT Call Immediately to report the following: Uncontrolled nausea and/or vomiting, uncontrolled pain, or unusual bleeding. Temperature of 100.4 F or greater and/or any sign/symptom of infection (redness , warmth, tenderness) Painful mouth or difficulty swallowing Red, cracked, or painful hands and/or feet Diarrhea Swelling of arms or legs Rash Important Phone Numbers: Cancer Center Main Number (answered 24 hours a day) [phone] Cancer Center Scheduling (appointments) [phone] [id number] [facility] Action (for nutritional supplements) [phone] in this encounter Medications at Time of [...] Progress Notes * Diane Washington RN - 12/31/2016 2:03 PM CDT CHEMO NOTE Verified chemo consent signed and in chart. Verified initiate chemo order in O2 Blood return positive via: Port (Single, Power Port and Accessed) Premedications/Prehydration given as ordered. Aloxi, Decadron, Emend BSA and dose double checked (agree with orders as written) with: Link Maguire RN Arm band verified at bedside with second RN (same RN as above unless otherwise noted). Labs/applicable tests checked: CBC and CMP Chemo drug/dose/route: Cycle 2 Day 1 Adriamycin/Cytoxan Rate verified with second RN (same RN as above unless otherwise noted). Patient education offered and stated understanding. Port accessed for labs and treatment. Patient was assessed by MD in clinic today. Labs within normal limits for treatment. Premeds administered. Treatment administered as ordered and tolerated well. Vesicant precautions maintained. Therapy completed and tolerated well. Discharged home ambulatory. in this encounter Plan of Treatment Not on fileas of this encounter Visit Diagnoses Diagnosis Malignant neoplasm of upper-outer quadrant of left breast in female, estrogen receptor positive (HCC) in this encounter Administered Medications Medication Order MAR Action Action Date Dose Rate Site cyclophosphamide (CYTOXAN) 816 mg in Given - New 12/31/2016 816 mg 581.6 mL/hr sodium chloride 0.9% (NS) 290.8 mL IVPB Bag 12:16 CDT 816 mg (600 mg/m2 1.36 m2 Treatment plan actual BSA), Intravenous, 290.8 mL, for 0.5 Hours, ONCE, 1 dose, Tue12/31/16 at 1115, NURSING: To be administered by Chemotherapy Competency-validated nurse. NOTE: This is a HIGH ALERT Medication. SPECIAL TUBING REQUIRED dexamethasone (DECADRON) tablet 12 mg Given 12/31/2016 12 mg 12 mg, Oral, ONCE, 1 dose, Tue12/31/16 11:06 CDT at 1045 DOXOrubicin (ADRIAMYCIN) injection 81.6 Given 12/31/2016 81.6 mg mg 12:03 CDT 81.6 mg (60 mg/m2 1.36 m2 Treatment plan actual BSA), Intravenous, ONCE, 1 dose, Tue12/31/16 at 1115, Give IV Push over 3-5 minutes. PROTECT FROM LIGHT NURSING: To be administered by Chemotherapy Competency-validated nurse. NOTE: This is a HIGH ALERT Medication. SPECIAL TUBING REQUIRED fosaprepitant (EMEND) 150 mg in sodium Given - New 12/31/2016 150 mg 450 mL/hr chloride 0.9% (NS) 150 mL IVPB Bag 11:14 CDT 150 mg, Intravenous, 150 mL, for 20 Minutes, ONCE, 1 dose, Tue12/31/16 at 1045 heparin lock flush PF syringe 500 Units Given 12/31/2016 500 Units 500 Units, Intra-catheter, ONCE, 1 dose, 12:50 CDT Tue12/31/16 at 1300, NOTE: This is a HIGH ALERT Medication. palonosetron(+) (ALOXI) injection 0.25 Given 12/31/2016 0.25 mg mg 11:06 CDT 0.25 mg, Intravenous, ONCE, 1 dose, Tue12/31/16 at 1045 in this encounter
--- OUTSIDE RECORDS SUMMARY | 2017-02-08 12:24 | XMS REPORT | Encounter Summary ---
Author Author [facility] Organization [facility] Address Unknown Phone Unavailable Care Team Providers Care Umbrella Frame Maker Name Role Phone PCP Unavailable Reason for Visit * Reason Comments Heme/Onc Care Encounter Details Date Type Department Care Team Description 12/31/2016 Office Visit [facility] Rafael Hemphill MD Malignant neoplasm of Cancer Center - OP Exam [address] [place] [address] [place] [address] left breast in female, [place], [place] [phone] estrogen receptor [phone] positive (HCC) (Primary [phone] Dx) Social History Tobacco Use Types Packs/Day Years Used Date Never Smoker Smokeless Tobacco: Never Used Alcohol Use Drinks/Week oz/Week Comments No 0 Standard 0.0 drinks or equivalent Sex Assigned at Date Recorded Not on file as of this encounter Last Filed Vital Signs Vital Sign Reading Time Taken Blood Pressure 141/68 12/31/2016 9:44 AM CDT Pulse 108 12/31/2016 9:44 AM CDT Temperature 37.2 C (98.9 F) 12/31/2016 9:44 AM CDT Respiratory Rate 18 12/31/2016 9:44 AM CDT Oxygen Saturation 98% 12/31/2016 9:44 AM CDT Inhaled Oxygen - - Concentration Weight 46.4 kg (102 lb 6.4 oz) 12/31/2016 9:44 AM CDT Height 139.7 cm (4' 7") 12/31/2016 9:44 AM CDT Body Mass Index 23.8 12/31/2016 9:44 AM CDT in this encounter Functional Status [...] impairment: No 12/31/2016 as of this encounter Progress Notes * Rafael Hemphill MD - 12/31/2016 10:13 AM CDT Formatting of this note may be different from the original. Date of Service: 12/31/2016 Subjective: Reason for Visit: Heme/Onc Care Naye Harvey is a 66 y.o. female. Malignant neoplasm of upper-outer quadrant of left breast in female, estrogen receptor positive (HCC) Staging form: Breast, AJCC 7th Edition Clinical: Stage IIIB (T4b, N2, M0) - Signed by Rafael Hemphill MD on 2016 HPI Comments: Naye Harvey presents today for management of breast cancer. 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 She had not had a mammogram since 2000. 2. Bilateral diagnostic mammogram and ultrasound performed at [facility] in [place] showed an approximately 4 cm left breast [...] invasive ductal carcinoma, grade 2, ER 98%, IL 89%, HER-2 0+ Ki-67 37%. 5. CT CAP and bone scan negative for metastatic disease. 6. Discussed in multidisciplinary conference and katalina-adjuvant chemotherapy recommended. 7. Weekly Taxol -> ddAC started 09/20/16 Interim History: Doing well. Some mild nausea, controlled with meds. No vomiting. Weight stable. Worst part was fatigue. Back to feeling well today. Her breast lesion is "a lot better." No fevers or infections. No neuropathy. No interim infections, hospitalizations or transfusions. I have reviewed and updated the past medical, social and family histories in the history section and they are up to date as of this visit. I have extensively reviewed the laboratory, pathology and radiology, both internal and external, and the jean baptiste findings are summarized above. Review of Systems All other systems reviewed [...] hours as needed for Nausea or Vomiting. Filed Vitals: 12/31/16 0944 BP: 141/68 Pulse: 108 Temp: 37.2 C (98.9 F) TempSrc: Oral Resp: 18 Height: 139.7 cm (55") Weight: 46.448 kg (102 lb 6.4 oz) SpO2: 98% Body mass index is 23.8 kg/(m^2). Pain Score: Zero Pain Addressed: N/A Patient Evaluated for a Clinical Trial: Patient not eligible for a treatment trial (including not needing treatment, needs palliative care, in remission). Eastern Cooperative Oncology Group performance status is 0, Fully active, able to carry on all pre-disease performance without restriction.. Physical Exam Constitutional: She appears well-developed. No distress. HENT: Head: Normocephalic. Eyes: Conjunctivae are normal. No scleral icterus. Neck: Neck supple. Cardiovascular: Normal rate and regular rhythm. Pulmonary/Chest: Effort normal and breath sounds normal. Skin involvement dramatically better, with residual pedunculated mass in NAC. Mass much softer. No palpable adenopathy. Abdominal: Soft. Musculoskeletal: She exhibits no edema. Lymphadenopathy: No palpable cervical, supraclavicular, axillary or inguinal adenopathy. Neurological: She is alert. Skin: No rash noted. Psychiatric: She has a normal mood and affect. Nursing note and vitals reviewed. Assessment and Plan: Malignant neoplasm of upper-outer quadrant of left breast in female, estrogen receptor positive (HCC) Impression: 1. Stage III (cT4b N2 M0) [...] mastectomy down the line. 5. RTC with DOCUMENT MANAGEMENT CONSULTANT in 2 weeks and with me in 4 weeks, or sooner should new or concerning symptoms develop. I have discussed the diagnosis and treatment plan with the patient and she expresses understanding and wishes to proceed. in this encounter Plan of Treatment Not on fileas of this encounter Visit Diagnoses Diagnosis Malignant neoplasm of upper-outer quadrant of left breast in female, estrogen receptor positive (HCC) - Primary in this encounter
--- OUTSIDE RECORDS SUMMARY | 2017-02-08 12:24 | XMS REPORT | Encounter Summary ---
Author Author [facility] Organization [facility] Address Unknown Phone Unavailable Care Team Providers Care Cabin Worker Name Role Phone PCP Unavailable Encounter Details Date Type Department Care Team Description 12/31/2016 Hospital [facility] Rafael Hemphill MD Encounter Cancer Center - OP Lab [address] [place] [address] [phone] Social History Tobacco Use Types Packs/Day Years [...] impairment: No 12/31/2016 as of this encounter Medications at Time [...] this encounter Results * COMPREHENSIVE METABOLIC PANEL (12/31/2016 10:11 AM) Component Value Ref Range Sodium 138 137 - 147 MMOL/L Potassium 4.1 3.5 - 5.1 MMOL/L Chloride 107 98 - 110 MMOL/L Glucose 108 (H) 70 - 100 MG/DL Blood Urea Nitrogen 13 7 - 25 MG/DL Creatinine 0.54 0.4 - 1.00 MG/DL Calcium 9.2 8.5 - 10.6 MG/DL Total Protein 6.2 6.0 - 8.0 G/DL Total Bilirubin 0.2 (L) 0.3 - 1.2 MG/DL Albumin 3.5 3.5 - 5.0 G/DL Alk Phosphatase 85 25 - 110 U/L AST (SGOT) 15 7 - 40 U/L CO2 27 21 - 30 MMOL/L ALT (SGPT) 10 7 - 56 U/L Anion Gap 4 3 - 12 eGFR Non >60 >60 [...] Performing Laboratory Blood [facility] [address] [place] [address] * CBC AND DIFF (12/31/2016 10:11 AM) Component Value Ref Range White Blood Cells 13.0 (H) 4.5 - 11.0 K/UL RBC 3.36 (L) 4.0 - 5.0 M/UL Hemoglobin 10.9 (L) 12.0 - 15.0 GM/DL Hematocrit 33.0 (L) 36 - 45 % MCV 98.1 80 - 100 FL MCH 32.4 26 - 34 PG MCHC 33.0 32.0 - 36.0 G/DL RDW 15.2 (H) 11 - 15 % Platelet Count 339 150 - 400 K/UL MPV 8.2 7 - 11 FL Segmented Neutrophils 71 41 - 77 % Bands 9 0 - 10 % Lymphocytes 8 (L) 24 - 44 % Monocytes 10 4 - 12 % Myelocyte 2 % HYPO PRESENT POLY PRESENT Teardrop PRESENT Platelet Estimate NORMAL Absolute Neutrophil Count 10.40 (H) 1.8 - 7.0 K/UL Manual Specimen Performing Laboratory Blood [facility] [address] [address] in this encounter Visit Diagnoses Diagnosis Malignant neoplasm of upper-outer quadrant of left breast in female, estrogen receptor positive (HCC) in this encounter
--- OUTSIDE RECORDS SUMMARY | 2017-02-08 12:24 | XMS REPORT | Encounter Summary ---
Author Author [facility] Organization [facility] Address Unknown Phone Unavailable Care Team Providers Care Billing Specialist Name Role Phone PCP Unavailable Reason for Visit * Reason Comments Heme/Onc Care Encounter Details Date Type Department Care Team Description 12/24/2016 Office Visit [facility] Shan Lopez APRN Malignant neoplasm of Cancer Center - OP Exam [address] upper-[place] [address] [place] [address] left breast in female, [place], [place] [phone] estrogen receptor [id number] positive (HCC) (Primary [phone] Dx) Social History Tobacco Use Types Packs/Day Years Used Date Never Smoker Smokeless Tobacco: Never Used Alcohol Use Drinks/Week oz/Week Comments No 0 Standard 0.0 drinks or equivalent Sex Assigned at Date Recorded Not on file as of this encounter Last Filed Vital Signs Vital Sign Reading Time Taken Blood Pressure 124/78 12/24/2016 1:03 PM CDT Pulse 86 12/24/2016 1:03 PM CDT Temperature 36.4 C (97.6 F) 12/24/2016 1:03 PM CDT Respiratory Rate 16 12/24/2016 1:03 PM CDT Oxygen Saturation 99% 12/24/2016 1:03 PM CDT Inhaled Oxygen - - Concentration Weight 47.1 kg (103 lb 12.8 oz) 12/24/2016 1:03 PM CDT Height 139.7 cm (4' 7") 12/24/2016 1:03 PM CDT Body Mass Index 24.13 12/24/2016 1:03 PM CDT in this encounter Functional Status Functional Status Response Date of Assessment Does the patient have a hearing impairment: No 12/20/2016 Does the patient have a visual impairment: Yes 12/20/2016 Does the patient have impaired ambulation: No 12/20/2016 Does the patient have an activity of daily living No 12/20/2016 (ADL) impairment: Does the patient have an instrumental activity of No 12/20/2016 daily living (IADL) impairment: Cognitive Status Response Date of Assessment Does the patient have a cognitive impairment: No 12/20/2016 as of this encounter Progress Notes * Shan Lopez APRN - 12/24/2016 1:05 PM CDT Formatting of this note may be different from the original. Date of Service: 12/24/2016 Subjective: Reason for Visit: Heme/Onc Care Naye Harvey is a 66 y.o. female. Malignant neoplasm of upper-outer quadrant of left female breast (HCC) Staging form: Breast, AJCC 7th Edition Clinical: Stage IIIB (T4b, N2, M0) - Signed by Rafael Hemphill MD on 2016 History of Present Illness Naye Harvey presents today for management of breast cancer. 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 She had not had a mammogram since 2000. 2. Bilateral diagnostic mammogram and ultrasound performed at [facility] in [place] showed an approximately 4 cm left breast [...] invasive ductal carcinoma, grade 2, ER 98%, [place] 89%, HER-2 0+ Ki-67 37%. 5. CT CAP and bone scan negative for metastatic disease. 6. Discussed in multidisciplinary conference and katalina-adjuvant chemotherapy recommended. 7. Weekly Taxol -> ddAC started 09/20/16 Interim History: She is day 8 of cycle 1 of ddAC Her breast lesion is improving some. She is more fatigued, but otherwise did wel. No fevers or infections. Eating well and weight stable. She took antiemetics around the clock and had no n/v. No neuropathy or myalgias. No interim infections, hospitalizations or transfusions. Review of Systems Constitutional: Positive for fatigue. Objective: aspirin 325 mg tablet Take 325 [...] needed for Nausea or Vomiting. Filed Vitals: 12/24/16 1303 BP: 124/78 Pulse: 86 Temp: 36.4 C (97.6 F) TempSrc: Oral Resp: 16 Height: 139.7 cm (55") Weight: 47.083 kg (103 lb 12.8 oz) SpO2: 99% Body mass index is 24.13 kg/(m^2). Pain Score: Zero Pain Addressed: N/A [...] note and vitals reviewed. Assessment and Plan: Problem List Items Addressed This Visit Oncology Malignant neoplasm of upper-outer quadrant of left female breast (HCC) - Primary Relevant Orders CBC AND DIFF Stage III (cT4b N2 M0) strongly hormone positive, HER-2 negative invasive ductal carcinoma of the left breast with extensive skin involvement responding to weekly Taxol and will now at D8 C1 of ddAC PLAN: CBC today. She will see Dr. Hemphill at the start of cycle 2. Questions and concerns addressed. in this encounter Plan of Treatment Not on fileas of this encounter Results * CBC AND DIFF (12/24/2016 1:59 PM) Component Value Ref Range White Blood Cells 0.6 (LL) 4.5 - 11.0 K/UL Comment: Critical Result WBC:Called to SHAN Rutherford NP at: 14:03 by: TBOGGS Read back by: SHAN Rutherford NP RBC 3.59 (L) 4.0 - 5.0 M/UL Hemoglobin 11.8 (L) 12.0 - 15.0 GM/DL Hematocrit 35.4 (L) 36 - 45 % MCV 98.6 80 - 100 FL MCH 33.0 26 - 34 PG MCHC 33.5 32.0 - 36.0 G/DL RDW 14.7 11 - 15 % Platelet Count 109 (L) 150 - 400 K/UL MPV 8.4 7 - 11 FL Neutrophils 16 (L) 41 - 77 % Lymphocytes 65 (H) 24 - 44 % Monocytes 8 4 - 12 % Eosinophils 10 (H) 0 - 5 % Basophils 1 0 - 2 % Absolute Neutrophil Count 0.10 (L) 1.8 - 7.0 K/UL Absolute Lymph Count 0.40 (L) 1.0 - 4.8 K/UL Absolute Monocyte Count 0.00 0 - 0.80 K/UL Absolute Eosinophil Count 0.10 0 - 0.45 K/UL Absolute Basophil Count 0.00 0 - 0.20 K/UL Specimen Performing Laboratory Blood [facility] [address] [address] in this encounter Visit Diagnoses Diagnosis Malignant neoplasm of upper-outer quadrant of left breast in female, estrogen receptor positive (HCC) - Primary in this encounter
--- OUTSIDE RECORDS SUMMARY | 2017-02-08 12:24 | XMS REPORT | Encounter Summary ---
Author Author [facility] Organization [facility] Address Unknown Phone Unavailable Care Team Providers Care Software Engineer Name Role Phone PCP Unavailable Encounter Details Date Type Department Care Team Description 12/24/2016 Hospital [facility] Shan Lopez APRN Encounter Cancer Center - OP Lab [address] [place] [id number] [place] [address] [phone] Social History Tobacco Use Types Packs/Day Years [...] impairment: No 12/20/2016 as of this encounter Medications at Time [...] - 0.20 K/UL Specimen Performing Laboratory Blood [facility] [address] [address] in this encounter Visit Diagnoses Diagnosis Malignant neoplasm of upper-outer quadrant of left breast in female, estrogen receptor positive (HCC) in this encounter
--- OUTSIDE RECORDS SUMMARY | 2017-02-08 12:24 | XMS REPORT | Encounter Summary ---
Author Author [facility] Organization [facility] Address Unknown Phone Unavailable Care Team Providers Care Clothing Sales Assistant Name Role Phone PCP Unavailable Encounter Details Date Type Department Care Team Description 12/24/2016 Hospital [facility] Irasema oLpez APRN Encounter Cancer Center - [address] [place] [address] [place] [address] Social History Tobacco Use Types [...] impairment: No 12/20/2016 as of this encounter Discharge Instructions * Patient Instructions - Tricia Maguire RN - 12/24/2016 2:15 PM CDT Call Immediately to report the [...] Main Number (answered 24 hours a day) [phone] Cancer Center Scheduling (appointments) [phone] [facility] (for nutritional supplements) [phone] in this encounter Medications at Time of [...] as of this encounter Progress Notes * Tricia Maguire, RN - 12/24/2016 2:09 PM CDT Cycle 1 Day 8 AC - Port labs only Patient's main complaint is fatigue. Seen by Irasema Lopez APRN for full eval. Neutropenic precautions reviewed. in this encounter Plan of Treatment Not on fileas of this encounter Visit Diagnoses Diagnosis Malignant neoplasm of upper-outer quadrant of left breast in female, estrogen receptor positive (HCC) - Primary in this encounter Administered Medications Medication Order MAR Action Action Date Dose Rate Site heparin lock flush PF syringe 500 Units Given 12/24/2016 500 Units 500 Units, Intra-catheter, ONCE, 1 dose, 13:57 CDT 12/24/16 at 1330, NOTE: This is a HIGH ALERT Medication. in this encounter
--- OUTSIDE RECORDS SUMMARY | 2017-02-08 12:24 | XMS REPORT | Encounter Summary ---
Author Author [facility] Organization [facility] Address Unknown Phone Unavailable Care Team Providers Care Repeat Photocomposing Machine Operator Name Role Phone PCP Unavailable Reason for Referral * Radiology Services Status Reason Specialty Diagnoses / Referred By Referred To Procedures Contact Contact Authorized Radiology Diagnoses Rafael Hemphill Icc Mri Malignant [place] [address] [place] [address] [place], [place] upper-outer [place], [address] [place] [address] Phone: breast in female, estrogen [phone] receptor Fax: positive (HCC) [phone] P rocedures MRI BREAST BILAT WO/W CONTRAST Encounter Details Date Type Department Care Team Description 01/03/2017 Orders Only [facility] Rafael Hemphill MD Malignant neoplasm of Cancer Center - OP Exam [address] [place] [address] [place] [address] left breast in female, [place], [place] [phone] estrogen receptor [id number] positive (HCC) (Primary [phone] Dx) Social History Tobacco Use Types Packs/Day [...] as of this encounter Plan of Treatment Name Priority Associated Diagnoses Order Schedule MRI BREAST BILAT WO/W CONTRAST Routine Malignant neoplasm of Expected: 01/28/2017 upper-outer quadrant of (Approximate), Expires: left breast in female, 01/03/2018 estrogen receptor positive (HCC) as of this encounter Visit Diagnoses Diagnosis Malignant neoplasm of upper-outer quadrant of left breast in female, estrogen receptor positive (HCC) - Primary in this encounter
--- OUTSIDE RECORDS SUMMARY | 2017-02-08 12:24 | XMS REPORT | Encounter Summary ---
Author Author [facility] Organization [facility] Address Unknown Phone Unavailable Care Team Providers Care Patrol Conductor Name Role Phone PCP Unavailable Reason for Visit * Reason Comments Injection * Treatment (Routine) Status Reason Specialty Diagnoses / Referred By Referred To Procedures Contact Contact Authorized Hematology and Diagnoses Rafael Hemphill Marc S, Oncology Mal[place] [address] [place], [place] [address] female breast Phone: Phone: (HCC) [phone] DOXOrubicin Fax: (ADRIAMYCIN) - [phone] J9000; Cyclophosphamide (CYTOXAN) - J9031; Pegfilgrastim (NEULASTA) J2505; Aloxi-[id number];Emen d-[id number] P rocedures AC NEULASTA Encounter Details Date Type Department Care Team Description 01/03/2017 Hospital [facility] Rafael Hem[place]ill [place] [address] [place] [address] [phone] [place] [address] Social History Tobacco Use Types Packs/Day Years Used Date Never Smoker Smokeless Tobacco: Never Used Alcohol Use Drinks/Week oz/Week Comments No 0 Standard 0.0 drinks or equivalent Sex Assigned at Date Recorded Not on file as of this encounter Last Filed Vital Signs Vital Sign Reading Time Taken Blood Pressure 134/71 01/03/2017 1:05 PM CDT Pulse 80 01/03/2017 1:05 PM CDT Temperature 36.6 C (97.8 F) 01/03/2017 1:05 PM CDT Respiratory Rate 18 01/03/2017 1:05 PM CDT Oxygen Saturation 97% 01/03/2017 1:05 PM CDT Inhaled Oxygen - - Concentration Weight 47.9 kg (105 lb 9.6 oz) 01/03/2017 1:05 PM CDT Height 139.7 cm (4' 7") 01/03/2017 1:05 PM CDT Body Mass Index 24.54 01/03/2017 1:05 PM CDT in this encounter Functional Status [...] impairment: No 01/03/2017 as of this encounter Medications at Time [...] Site pegfilgrastim (NEULASTA) syringe 6 mg Given 01/03/2017 6 mg Arm, Right 6 mg, Subcutaneous, ONCE, 1 dose, Mon 13:18 CDT 01/03/17 at 1315, -- Not for IV Push administration -- in this encounter
--- OUTSIDE RECORDS SUMMARY | 2017-02-08 12:24 | XMS REPORT | Encounter Summary ---
Author Author [facility] Organization [facility] Address Unknown Phone Unavailable Care Team Providers Care Button Pusher Name Role Phone PCP Unavailable Reason for Visit * Treatment (Routine) Status Reason Specialty Diagnoses / Referred By Referred To Procedures Contact Contact Authorized Hematology and Diagnoses Rafael Hemphill Marc S, Oncology Malignant [place] [address] [facility], [place], [place] [address] female breast Phone: Phone: (HCC) [phone] DOXOrubicin Fax: (ADRIAMYCIN) - [phone] J9000; Cyclophosphamide (CYTOXAN) - J9070; Pegfilgrastim (NEULASTA) J2505; Aloxi-[id number];Emen d-J1453 P endy AC NEULASTA Encounter Details Date Type Department Care Team Description 12/20/2016 Hospital [facility] Irasema Lopez [place] [address] [place] [address] [phone] [place] [address] Social History Tobacco Use Types Packs/Day Years Used Date Never Smoker Smokeless Tobacco: Never Used Alcohol Use Drinks/Week oz/Week Comments No 0 Standard 0.0 drinks or equivalent Sex Assigned at Date Recorded Not on file as of this encounter Last Filed Vital Signs Vital Sign Reading Time Taken Blood Pressure 128/67 12/20/2016 10:59 AM CDT Pulse 77 12/20/2016 10:59 AM CDT Temperature 36.7 C (98 F) 12/20/2016 10:59 AM CDT Respiratory Rate 18 12/20/2016 10:59 AM CDT Oxygen Saturation 100% 12/20/2016 10:59 AM CDT Inhaled Oxygen - - Concentration Weight 48.4 kg (106 lb 12.8 oz) 12/20/2016 10:59 AM CDT Height 139.7 cm (4' 7") 12/20/2016 10:59 AM CDT Body Mass Index 24.82 12/20/2016 10:59 AM CDT in this encounter Functional Status [...] Patient Instructions - Tricia Maguire RN - 12/20/2016 11:32 AM CDT Call Immediately to report the following: Uncontrolled nausea and/or vomiting, uncontrolled pain, or unusual bleeding. Temperature of 100.4 F or greater and/or any sign/symptom of infection (redness , warmth, tenderness) Painful mouth or difficulty swallowing Red, cracked, or painful hands and/or feet Diarrhea Swelling of arms or legs Rash Important Phone Numbers: Cancer Center Main Number (answered 24 hours a day) [phone] Cancer Center Scheduling (appointments) [phone] OR 2900 [facility] (for nutritional supplements) [phone] in this encounter Medications at Time of [...] of this encounter Progress Notes * Tricia Maguire RN - 12/20/2016 11:31 AM CDT Cycle 1 Day 4 Neulasta following first AC. Patient reports nausea has been controlled. No complaints to report. Neulasta given per plan. Discharged in good condition, ambulatory. in this encounter Plan of Treatment Not on fileas of this encounter Visit Diagnoses Diagnosis Malignant neoplasm of upper-outer quadrant of left breast in female, estrogen receptor positive (HCC) in this encounter Administered Medications Medication Order MAR Action Action Date Dose Rate Site pegfilgrastim (NEULASTA) syringe 6 mg Given 12/20/2016 6 mg Abdominal 6 mg, Subcutaneous, ONCE, 1 dose, Mon 11:09 CDT Tissue 12/20/16 at 1115, -- Not for IV Push administration -- in this encounter
--- OUTSIDE RECORDS SUMMARY | 2017-02-08 12:24 | XMS REPORT | Encounter Summary ---
Author Author [facility] Organization [facility] Address Unknown Phone Unavailable Care Team Providers Care Crater And Packer Name Role Phone PCP Unavailable Reason for Visit * Reason Comments Appointment Encounter Details Date Type Department Care Team Description 01/03/2017 Telephone [facility] Martha Oliver MD Appointment Cancer Center - Exam [address] [place] [address] [place] [address] [phone] Social History Tobacco Use Types Packs/Day Years [...]
--- OUTSIDE RECORDS SUMMARY | 2017-02-08 12:25 | XMS REPORT | Encounter Summary ---
Author Author [facility] Organization [facility] Address Unknown Phone Unavailable Care Team Providers Care Underliner Name Role Phone PCP Unavailable Encounter Details Date Type Department Care Team Description 12/10/2016 Hospital [facility] Irasema Lopez APRN Encounter Cancer Center - OP Lab [address] [place] [id number] [place] [address] [place] [address] [phone] Social History Tobacco Use Types Packs/Day Years Used Date Never Smoker Smokeless Tobacco: Never Used Alcohol Use Drinks/Week oz/Week Comments No 0 Standard 0.0 drinks or equivalent Sex Assigned at Date Recorded Not on file as of this encounter Functional Status Functional Status Response Date of Assessment Does the patient have a hearing impairment: No 12/10/2016 Does the patient have a visual impairment: Yes 12/10/2016 Does the patient have impaired ambulation: No 12/10/2016 Does the patient have an activity of daily living No 12/10/2016 (ADL) impairment: Does the patient have an instrumental activity of No 12/10/2016 daily living (IADL) impairment: Cognitive Status Response Date of Assessment Does the patient have a cognitive impairment: No 12/10/2016 as of this encounter Medications at Time of Discharge Medication Sig. Disp. Refills Start Date End Date aspirin 325 mg tablet Take 325 mg by mouth daily. Take with food. DIPHENHYDRAMINE HCL Take by mouth. (ALLERGY MEDICATION [...] this encounter Results * COMPREHENSIVE METABOLIC PANEL (12/10/2016 10:33 AM) Component Value Ref Range Sodium 137 137 - 147 MMOL/L Potassium 4.1 3.5 - 5.1 MMOL/L Chloride 106 98 - 110 MMOL/L Glucose 94 70 - 100 MG/DL Blood Urea Nitrogen 19 7 - 25 MG/DL Creatinine 0.54 0.4 - 1.00 MG/DL Calcium 9.2 8.5 - 10.6 MG/DL Total Protein 6.4 6.0 - 8.0 G/DL Total Bilirubin 0.3 0.3 - 1.2 MG/DL Albumin 3.8 3.5 - 5.0 G/DL Alk Phosphatase 38 25 - 110 U/L AST (SGOT) 17 7 - 40 U/L CO2 26 21 - 30 MMOL/L ALT (SGPT) 12 7 - 56 U/L Anion Gap 5 3 - 12 eGFR Non >60 >60 [...] Pharmacist for questions. Specimen Performing Laboratory Blood MAIN LAB [address] [place] [address] * CBC AND DIFF (12/10/2016 10:33 AM) Component Value Ref Range White Blood Cells 4.3 (L) 4.5 - 11.0 K/UL RBC 3.56 (L) 4.0 - 5.0 M/UL Hemoglobin 11.7 (L) 12.0 - 15.0 GM/DL Hematocrit 34.9 (L) 36 - 45 % MCV 97.8 80 - 100 FL MCH 32.9 26 - 34 PG MCHC 33.6 32.0 - 36.0 G/DL RDW 15.4 (H) 11 - 15 % Platelet Count 263 150 - 400 K/UL MPV 7.6 7 - 11 FL Neutrophils 61 41 - 77 % Lymphocytes 26 24 - 44 % Monocytes 9 4 - 12 % Eosinophils 3 0 - 5 % Basophils 1 0 - 2 % Absolute Neutrophil Count 2.60 1.8 - 7.0 K/UL Absolute Lymph Count 1.10 1.0 - 4.8 K/UL Absolute Monocyte Count 0.40 0 - 0.80 K/UL Absolute Eosinophil Count 0.10 0 - 0.45 K/UL Absolute Basophil Count 0.10 0 - 0.20 K/UL Specimen Performing Laboratory Blood [facility] [address] [address] in this encounter Visit Diagnoses Diagnosis Malignant neoplasm of upper-outer quadrant of left female breast (HCC) Malignant neoplasm of upper-outer quadrant of female breast in this encounter
--- OUTSIDE RECORDS SUMMARY | 2017-02-08 12:25 | XMS REPORT | Encounter Summary ---
Author Author [facility] Organization [facility] Address Unknown Phone Unavailable Care Team Providers Care Scheduling Coordinator Name Role Phone PCP Unavailable Reason for Visit * Reason Comments Heme/Onc Care * Treatment (Routine) Status Reason Specialty Diagnoses / Referred By Referred To Procedures Contact Contact Closed Hematology and Diagnoses Rafael Hemphill Marc S, Oncology Malignant S, [place] [address] [place] [address] female breast Phone: Phone: (HCC) [phone] PACLitaxel Fax: (TAXOL) - [id number] P rocedures TAXOL Encounter Details Date Type Department Care Team Description 12/03/2016 [facility] Irasema Lopez [place] [address] [place] [address] [address] [place] [address] [place] [address] Social History Tobacco Use Types Packs/Day Years Used Date Never Smoker Smokeless Tobacco: Never Used Alcohol Use Drinks/Week oz/Week Comments No 0 Standard 0.0 drinks or equivalent Sex Assigned at Date Recorded Not on file as of this encounter Functional Status Functional Status Response Date of Assessment Does the patient have a hearing impairment: No 12/03/2016 Does the patient have a visual impairment: Yes 12/03/2016 Does the patient have impaired ambulation: No 12/03/2016 Does the patient have an activity of daily living No 12/03/2016 (ADL) impairment: Does the patient have an instrumental activity of No 12/03/2016 daily living (IADL) impairment: Cognitive Status Response Date of Assessment Does the patient have a cognitive impairment: No 12/03/2016 as of this encounter Discharge Instructions * Patient Instructions - Kyra Jacome RN - 12/03/2016 12:02 PM CDT Call Immediately to report the [...] Main Number (answered 24 hours a day) [phone] Cancer Center Scheduling (appointments) [phone] OR 6400 Cancer [facility] (for nutritional supplements) [phone] in this encounter Medications at Time of [...] as of this encounter Progress Notes * Kyra Jacome RN - 12/03/2016 11:59 AM CDT Cycle 11, Day 1 Taxol Port accessed per protocol. Labs collected. Patient seen by DOROTHY Santana to treat. Tolerated infusion well, denies complaints. Port de-accessed, packed with heparin per protocol. Discharge in good condition, ambulatory. CHEMO NOTE Labs/applicable tests checked: CBC, CMP Verified chemo consent signed and in chart. BSA and dose double checked (agree with orders as written). Arm band verified at bedside with second RN. Premedications/Prehydration given as ordered. Chemo drug/dose/route: see MAR Rate verified with second RN. Patient education offered and stated understanding. in this encounter Plan of Treatment Not on fileas of this encounter Visit Diagnoses Diagnosis Malignant neoplasm of upper-outer quadrant of left female breast (HCC) Malignant neoplasm of upper-outer quadrant of female breast in this encounter Administered Medications Medication Order MAR Action Action Date Dose Rate Site dexamethasone (DECADRON) tablet 4 mg Given 12/03/2016 4 mg 4 mg, Oral, ONCE, 1 dose, Tue12/03/16 at 11:34 CDT 1115 diphenhydrAMINE (BENADRYL) injection Given 12/03/2016 12.5-25 mg 11:34 CDT 12.5-25 mg, Intravenous, ONCE, 1 dose, Tue12/03/16 at 1115 famotidine (PEPCID) injection 20 mg Given 12/03/2016 20 mg 20 mg, Intravenous, ONCE, 1 dose, Tue 11:34 CDT 12/03/16 at 1115, DILUTE W/ 10ML NS OR D5W. GIVE IV PUSH OVER 2 MIN heparin lock flush PF syringe 500 Units Given 12/03/2016 500 Units 500 Units, Intra-catheter, ONCE, 1 dose, 13:09 CDT 12/03/16 at 1215, NOTE: This is a HIGH ALERT Medication. PACLitaxel (TAXOL) 108.798 mg in sodium Given - New 12/03/2016 108.798 mg 268.1 mL/hr chloride 0.9% (NS) 268.133 mL IVPB Bag 12:05 CDT (non-PVC) 108.798 mg (rounded from 108.8 mg=80 mg/m2 1.36 m2 Treatment plan actual BSA), Intravenous, 268.133 mL, for 1 Hours, ONCE, 1 dose, Tue12/03/16 at 1145, SPECIAL TUBING REQUIRED NURSING: To be administered by Chemotherapy Competency-validated nurse. NOTE: This is a HIGH ALERT Medication. in this encounter
--- OUTSIDE RECORDS SUMMARY | 2017-02-08 12:25 | XMS REPORT | Encounter Summary ---
Author Author [facility] Organization [facility] Address Unknown Phone Unavailable Care Team Providers Care Binding Cutter Name Role Phone PCP Unavailable Reason for Visit * Treatment (Routine) Status Reason Specialty Diagnoses / Referred By Referred To Procedures Contact Contact Authorized Hematology and Diagnoses Rafael Hemphill Marc S, Oncology Malignant S, [place] [address] [facility], [place], [place] [address] female breast Phone: Phone: ([facility]) [phone] DOXOrubicin Fax: (ADRIAMYCIN) - [phone] J9000; Cyclophosphamide (CYTOXAN) - J9070; Pegfilgrastim (NEULASTA) J2505; Aloxi-[id number];Emen d-J1453 P rocedsriram AC NEULASTA Encounter Details Date Type Department Care Team Description 12/17/2016 Hospital [facility] Irasema Lopez [place] [address] [place] [address] [phone] [place] [address] Social History Tobacco Use Types Packs/Day Years Used Date Never Smoker Smokeless Tobacco: Never Used Alcohol Use Drinks/Week oz/Week Comments No 0 Standard 0.0 drinks or equivalent Sex Assigned at Date Recorded Not on file as of this encounter Functional Status Functional Status Response Date of Assessment Does the patient have a hearing impairment: No 12/17/2016 Does the patient have a visual impairment: Yes 12/17/2016 Does the patient have impaired ambulation: No 12/17/2016 Does the patient have an activity of daily living No 12/17/2016 (ADL) impairment: Does the patient have an instrumental activity of No 12/17/2016 daily living (IADL) impairment: Cognitive Status Response Date of Assessment Does the patient have a cognitive impairment: No 12/17/2016 as of this encounter Discharge Instructions * Patient Instructions - Aline Sen RN - 12/17/2016 10:55 AM CDT Call Immediately to report the [...] Main Number (answered 24 hours a day) [phone] Cancer Center Scheduling (appointments) [phone] OR 8495 [facility] (for nutritional supplements) [phone] in this encounter Medications at Time of [...] as of this encounter Progress Notes * Aline Sen RN - 12/17/2016 10:54 AM CDT CHEMO NOTE Verified chemo consent signed and in chart. Blood return positive via: Port (Single) Premedications/Prehydration given as ordered. BSA and dose double checked (agree with orders as written) with: see eMAR Arm band verified at bedside with second RN (same RN as above unless otherwise noted). Labs/applicable tests checked: CBC and CMP Chemo drug/dose/route: D1C1 Adriamycin, Cytoxan Rate verified with second RN (same RN as above unless otherwise noted). Patient education offered and stated understanding. Pt here for treatment. Pt was seen for teach by Irasema Rutherford APRN. Treatment parameters met. Port accessed. Pt tolerated infusions without difficulty. Pt deaccessed and dc'd ambulatory in stable condition. in this encounter Plan of Treatment Not on fileas of this encounter Visit Diagnoses Diagnosis Malignant neoplasm of upper-outer quadrant of left breast in female, estrogen receptor positive (HCC) in this encounter Administered Medications Medication Order MAR Action Action Date Dose Rate Site cyclophosphamide (CYTOXAN) 816 mg in Given - New 12/17/2016 816 mg 581.6 mL/hr sodium chloride 0.9% (NS) 290.8 mL IVPB Bag 11:50 CDT 816 mg (600 mg/m2 1.36 m2 Treatment plan actual BSA), Intravenous, 290.8 mL, for 0.5 Hours, ONCE, 1 dose, Tue12/17/16 at 1115, NURSING: To be administered by Chemotherapy Competency-validated nurse. NOTE: This is a HIGH ALERT Medication. SPECIAL TUBING REQUIRED dexamethasone (DECADRON) tablet 12 mg Given 12/17/2016 12 mg 12 mg, Oral, ONCE, 1 dose, Tue12/17/16 10:43 CDT at 1045 DOXOrubicin (ADRIAMYCIN) injection 81.6 Given 12/17/2016 81.6 mg mg 11:45 CDT 81.6 mg (60 mg/m2 1.36 m2 Treatment plan actual BSA), Intravenous, ONCE, 1 dose, Tue12/17/16 at 1115, Give IV Push over 3-5 minutes. PROTECT FROM LIGHT NURSING: To be administered by Chemotherapy Competency-validated nurse. NOTE: This is a HIGH ALERT Medication. SPECIAL TUBING REQUIRED fosaprepitant (EMEND) 150 mg in sodium Given - New 12/17/2016 150 mg 450 mL/hr chloride 0.9% (NS) 150 mL IVPB Bag 10:43 CDT 150 mg, Intravenous, 150 mL, for 20 Minutes, ONCE, 1 dose, Tue12/17/16 at 1045 heparin lock flush PF syringe 500 Units Given 12/17/2016 500 Units 500 Units, Intra-catheter, ONCE, 1 dose, 12:25 CDT Tue12/17/16 at 1100, NOTE: This is a HIGH ALERT Medication. palonosetron(+) (ALOXI) injection 0.25 Given 12/17/2016 0.25 mg mg 10:43 CDT 0.25 mg, Intravenous, ONCE, 1 dose, Tue12/17/16 at 1045 in this encounter
--- OUTSIDE RECORDS SUMMARY | 2017-02-08 12:25 | XMS REPORT | Encounter Summary ---
Author Author [facility] Organization [facility] Address Unknown Phone Unavailable Care Team Providers Care High Speed Operator Name Role Phone PCP Unavailable Encounter Details Date Type Department Care Team Description 12/09/2016 Orders Only [facility] Rafael Hemphill MD Cancer Center - OP Exam [address] [address] [place] [address] [phone] [address] [phone] Social History Tobacco Use Types Packs/Day Years [...] impairment: No 12/03/2016 as of this encounter Plan of Treatment Not on fileas of this encounter Visit Diagnoses Not on filein this encounter
--- OUTSIDE RECORDS SUMMARY | 2017-02-08 12:25 | XMS REPORT | Encounter Summary ---
Author Author [facility] Organization [facility] Address Unknown Phone Unavailable Care Team Providers Care Wildlife Control Agent Name Role Phone PCP Unavailable Reason for Visit * Reason Comments Heme/Onc Care * Treatment (Routine) Status Reason Specialty Diagnoses / Referred By Referred To Procedures Contact Contact Closed Hematology and Diagnoses Rafael Hemphill Marc S, Oncology Malignant [place] [address] upper-outer [place], [place] [address] female breast Phone: Phone: (HCC) [phone] PACLitaxel Fax: (TAXOL) - [id number] P rocedures TAXOL Encounter Details Date Type Department Care Team Description 11/26/2016 Hospital [facility] Irasema Lopez [place] [address] [place] [address] [address] [place] [address] [place] [address] Social History Tobacco Use Types Packs/Day Years Used Date Never Smoker Smokeless Tobacco: Never Used Alcohol Use Drinks/Week oz/Week Comments No 0 Standard 0.0 drinks or equivalent Sex Assigned at Date Recorded Not on file as of this encounter Last Filed Vital Signs Vital Sign Reading Time Taken Blood Pressure 128/56 11/26/2016 10:29 AM CDT Pulse 76 11/26/2016 10:29 AM CDT Temperature 36.9 C (98.5 F) 11/26/2016 10:29 AM CDT Respiratory Rate 16 11/26/2016 10:29 AM CDT Oxygen Saturation 99% 11/26/2016 10:29 AM CDT Inhaled Oxygen - - Concentration Weight 47.3 kg (104 lb 3.2 oz) 11/26/2016 10:29 AM CDT Height 139.7 cm (4' 7") 11/26/2016 10:29 AM CDT Body Mass Index 24.22 11/26/2016 10:29 AM CDT in this encounter Functional Status Functional Status Response Date of Assessment Does the patient have a hearing impairment: No 11/19/2016 Does the patient have a visual impairment: Yes 11/19/2016 Does the patient have impaired ambulation: No 11/19/2016 Does the patient have an activity of daily living No 11/19/2016 (ADL) impairment: Does the patient have an instrumental activity of No 11/19/2016 daily living (IADL) impairment: Cognitive Status Response Date of Assessment Does the patient have a cognitive impairment: No 11/19/2016 as of this encounter Discharge Instructions * Patient Instructions - Manisha Membreno RN - 11/26/2016 1:02 PM CDT Call Immediately to report the following: Uncontrolled nausea and/or vomiting, uncontrolled pain, or unusual bleeding. Temperature of 100.4 F or greater and/or any sign/symptom of infection (redness , warmth, tenderness) Painful mouth or difficulty swallowing Red, cracked, or painful hands and/or feet Diarrhea Swelling of arms or legs Rash Important Phone Numbers: Cancer Center Main Number (answered 24 hours a day) [phone] Cancer Center Scheduling (appointments) [phone] OR [phone] Cancer Action (for nutritional supplements) [phone] in this encounter Medications at Time of [...] as of this encounter Progress Notes * Manisha Membreno, RN - 11/26/2016 12:59 PM CDT Labs drawn from port without difficulties. No changes since last treatment. Tolerated treatment well, no issues. Discharged in good condition. CHEMO NOTE Verified chemo consent signed and in chart. Verified initiate chemo order in O2 Blood return positive via: Port (Power Port) Premedications/Prehydration given as ordered. BSA and dose double checked (agree with orders as written) with: Aline Sen RN Arm band verified at bedside with second RN (same RN as above unless otherwise noted). Labs/applicable tests checked: CBC and CMP Chemo drug/dose/route: Taxol IV Rate verified with second RN (same RN as above unless otherwise noted). Patient education offered and stated understanding. in this encounter Plan of Treatment Not on fileas of this encounter Visit Diagnoses Diagnosis Malignant neoplasm of upper-outer quadrant of left female breast (HCC) Malignant neoplasm of upper-outer quadrant of female breast in this encounter Administered Medications Medication Order MAR Action Action Date Dose Rate Site dexamethasone (DECADRON) tablet 4 mg Given 11/26/2016 4 mg 4 mg, Oral, ONCE, 1 dose, Tue11/26/16 at 11:13 CDT 1115 diphenhydrAMINE (BENADRYL) injection Given 11/26/2016 12.5 mg 12.5-25 mg 11:13 CDT 12.5-25 mg, Intravenous, ONCE, 1 dose, 11/26/16 at 1115 famotidine (PEPCID) injection 20 mg Given 11/26/2016 20 mg 20 mg, Intravenous, ONCE, 1 dose, Fri 11:14 CDT 11/26/16 at 1115, DILUTE W/ 10ML NS OR D5W. GIVE IV PUSH OVER 2 MIN heparin lock flush PF syringe 500 Units Given 11/26/2016 500 Units 500 Units, Intravenous, ONCE, 1 dose, 12:53 CDT Tue11/26/16 at 1300, NOTE: This is a HIGH ALERT Medication. PACLitaxel (TAXOL) 108.798 mg in sodium Given - New 11/26/2016 108.798 mg 268.1 mL/hr chloride 0.9% (NS) 268.133 mL IVPB Bag 11:45 CDT (non-PVC) 108.798 mg (rounded from 108.8 mg=80 mg/m2 1.36 m2 Treatment plan recorded BSA), Intravenous, 268.133 mL, Administer over 1 Hours, ONCE, 1 dose, Tue11/26/16 at 1130, SPECIAL TUBING REQUIRED NURSING: To be administered by Chemotherapy Competency-validated nurse. NOTE: This is a HIGH ALERT Medication. in this encounter
--- OUTSIDE RECORDS SUMMARY | 2017-02-08 12:25 | XMS REPORT | Encounter Summary ---
Author Author [facility] Organization [facility] Address Unknown Phone Unavailable Care Team Providers Care Printer Maintainer Name Role Phone PCP Unavailable Encounter Details Date Type Department Care Team Description 12/03/2016 Hospital [facility] Tatiana Valdez APRN Encounter Cancer Center [place] Lab [id number] [place] [id number] [place] [address] [phone] Irasema Florez APRN [address] [place] [address] [phone] Social History Tobacco Use Types Packs/Day Years [...] impairment: No 12/03/2016 as of this encounter Medications at Time [...] this encounter Results * COMPREHENSIVE METABOLIC PANEL (12/03/2016 10:37 AM) Component Value Ref Range Sodium 139 137 - 147 MMOL/L Potassium 4.4 3.5 - 5.1 MMOL/L Chloride 109 98 - 110 MMOL/L Glucose 91 70 - 100 MG/DL Blood Urea Nitrogen 19 7 - 25 MG/DL Creatinine 0.59 0.4 - 1.00 MG/DL Calcium 9.0 8.5 - 10.6 MG/DL Total Protein 6.3 6.0 - 8.0 G/DL Total Bilirubin 0.3 0.3 - 1.2 MG/DL Albumin 3.6 3.5 - 5.0 G/DL Alk Phosphatase 41 25 - 110 U/L AST (SGOT) 16 7 - 40 U/L CO2 26 21 - 30 MMOL/L ALT (SGPT) 11 7 - 56 U/L Anion Gap 4 [...] Performing Laboratory Blood [facility] [address] [place] [address] * CBC AND DIFF (12/03/2016 10:37 AM) Component Value Ref Range White Blood Cells 4.3 (L) 4.5 - 11.0 K/UL RBC 3.60 (L) 4.0 - 5.0 M/UL Hemoglobin 11.8 (L) 12.0 - 15.0 GM/DL Hematocrit 34.9 (L) 36 - 45 % MCV 97.0 80 - 100 FL MCH 32.7 26 - 34 PG MCHC 33.7 32.0 - 36.0 G/DL RDW 15.3 (H) 11 - 15 % Platelet Count 288 150 - 400 K/UL MPV 7.6 7 - 11 FL Neutrophils 64 41 - 77 % Lymphocytes 24 24 - 44 % Monocytes 9 4 - 12 % Eosinophils 2 0 - 5 % Basophils 1 0 - 2 % Absolute Neutrophil Count 2.80 1.8 - 7.0 K/UL Absolute Lymph Count 1.00 1.0 - 4.8 K/UL Absolute Monocyte Count 0.40 0 - 0.80 K/UL Absolute Eosinophil Count 0.10 0 - 0.45 K/UL Absolute Basophil Count 0.00 0 - 0.20 K/UL Specimen Performing Laboratory Blood [facility] [address] [address] in this encounter Visit Diagnoses Diagnosis Malignant neoplasm of upper-outer quadrant of left female breast (HCC) Malignant neoplasm of upper-outer quadrant of female breast in this encounter
--- OUTSIDE RECORDS SUMMARY | 2017-02-08 12:25 | XMS REPORT | Encounter Summary ---
Author Author [facility] Organization [facility] Address Unknown Phone Unavailable Care Team Providers Care Hand Screen Printer Name Role Phone PCP Unavailable Reason for Visit * Reason Comments Heme/Onc Care Encounter Details Date Type Department Care Team Description 12/17/[address] [facility] Irasema Lopez APRN Malignant neoplasm of Cancer Center - OP Exam [address] [place] [address] [place] [address] left breast in female, [place], [place] [phone] estrogen receptor [address] positive (HCC) (Primary [phone] Dx) Social History Tobacco Use Types Packs/Day Years Used Date Never Smoker Smokeless Tobacco: Never Used Alcohol Use Drinks/Week oz/Week Comments No 0 Standard 0.0 drinks or equivalent Sex Assigned at Date Recorded Not on file as of this encounter Last Filed Vital Signs Vital Sign Reading Time Taken Blood Pressure 115/60 12/17/2016 9:56 AM CDT Pulse 81 12/17/2016 9:56 AM CDT Temperature 37 C (98.6 F) 12/17/2016 9:56 AM CDT Respiratory Rate 18 12/17/2016 9:56 AM CDT Oxygen Saturation 98% 12/17/2016 9:56 AM CDT Inhaled Oxygen - - Concentration Weight 47.6 kg (105 lb) 12/17/2016 9:56 AM CDT Height 139.7 cm (4' 7") 12/17/2016 9:56 AM CDT Body Mass Index 24.4 12/17/2016 9:56 AM CDT in this encounter Functional Status [...] impairment: No 12/17/2016 as of this encounter Progress Notes * Irasema Lopez APRN - 12/17/2016 10:00 AM CDT Formatting of this note may be different from the original. Date of Service: 12/17/2016 Subjective: Reason for Visit: Heme/Onc Care Naye [...] mammogram and ultrasound performed at [facility] in [place] showed an approximately 4 cm left breast [...] invasive ductal carcinoma, grade 2, ER 98%, [place] 89%, HER-2 0+ Ki-67 37%. 5. CT CAP and bone scan negative for metastatic disease. 6. Discussed in multidisciplinary conference and katalina-adjuvant chemotherapy recommended. 7. Weekly Taxol -> ddAC started 09/20/16 Interim History: She is a little anxious about starting ddAC today. Her breast lesion is improving some. Her nails are darkening, but she hasn't noticed them lifting off. No fevers or infections. Eating well and weight stable. No neuropathy or myalgias. No interim infections, [...] needed for Nausea or Vomiting. Filed Vitals: 12/17/16 0956 BP: 115/60 Pulse: 81 Temp: 37 C (98.6 F) TempSrc: Oral Resp: 18 Height: 139.7 cm (55") Weight: 47.628 kg (105 lb) SpO2: 98% Body mass index is 24.4 kg/(m^2). Pain Score: Zero Pain Addressed: N/A [...] note and vitals reviewed. Assessment and Plan: 1. 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 Specific side effects and their management were discussed in detail and include, but are not limited to: fatigue , low blood counts, nausea, vomiting, loss of appetite, diarrhea, constipation, neuropathy, rash. Prescription for decadron was e-scripted to her pharmacy and discussed in detail how to take. Follow up appointments for toxicity check and CBC with diff one week after starting treatment were made. Future appointments for ongoing treatment will be put in place. Both verbal and written instructions were provided. All questions were answered to the best of my ability. The patient expressed understanding of what was explained to them, participated and agreed with the present plan. Consent previously signed. The patient has received contact information for the clinic and was instructed on how to contact us if questions or concerns arise. She also verbalized understanding of when to report signs and symptoms to us. Total time spent with patient was 45 minutes with 100% of time spent in education and counseling. in this encounter Plan of Treatment Not on fileas of this encounter Visit Diagnoses Diagnosis Malignant neoplasm of upper-outer quadrant of left breast in female, estrogen receptor positive (HCC) - Primary in this encounter
--- OUTSIDE RECORDS SUMMARY | 2017-02-08 12:25 | XMS REPORT | Encounter Summary ---
Author Author [facility] Organization [facility] Address Unknown Phone Unavailable Care Team Providers Care Hooking Machine Operator Name Role Phone PCP Unavailable Reason for Visit * Reason Comments Heme/Onc Care Encounter Details Date Type Department Care Team Description 12/03/[address] [facility] Irasema Lopez APRN Malignant neoplasm of Cancer Center - OP Exam [address] [place] [address] [place] [address] left female breast (HCC) [place], [place] [phone] (Primary Dx) [address] [phone] Social History Tobacco Use Types Packs/Day Years Used Date Never Smoker Smokeless Tobacco: Never Used Alcohol Use Drinks/Week oz/Week Comments No 0 Standard 0.0 drinks or equivalent Sex Assigned at Date Recorded Not on file as of this encounter Last Filed Vital Signs Vital Sign Reading Time Taken Blood Pressure 129/55 12/03/2016 10:28 AM CDT Pulse 83 12/03/2016 10:28 AM CDT Temperature 36.9 C (98.4 F) 12/03/2016 10:28 AM CDT Respiratory Rate 18 12/03/2016 10:28 AM CDT Oxygen Saturation 98% 12/03/2016 10:28 AM CDT Inhaled Oxygen - - Concentration Weight 47.4 kg (104 lb 9.6 oz) 12/03/2016 10:28 AM CDT Height 139.7 cm (4' 7") 12/03/2016 10:28 AM CDT Body Mass Index 24.31 12/03/2016 10:28 AM CDT in this encounter Functional Status [...] impairment: No 12/03/2016 as of this encounter Progress Notes * Irasema Lopez APRN - 12/03/2016 10:44 AM CDT Formatting of this note may be different from the original. Date of Service: 12/03/2016 Subjective: Reason for Visit: Heme/Onc Care Naye [...] Bilateral diagnostic mammogram and ultrasound performed at [facility] in [place] showed an approximately 4 cm left breast [...] invasive ductal carcinoma, grade 2, ER 98%, [place] 89%, HER-2 0+ Ki-67 37%. 5. CT CAP and bone scan negative for metastatic disease. 6. Discussed in multidisciplinary conference and katalina-adjuvant chemotherapy recommended. 7. Weekly Taxol -> ddAC started 09/20/16 Interim History: Continues to do very well. Her breast lesion is improving some. Thinks she has poison oak on her left foot. She used hydrocortisone cream with improvement No fevers or infections. Eating well and weight stable. No neuropathy or myalgias. No interim infections, hospitalizations or transfusions. Review of Systems Skin: Positive for rash (Left foot). Objective: aspirin 325 mg tablet Take 325 mg by mouth daily. Take with food. DIPHENHYDRAMINE HCL (ALLERGY MEDICATION PO) Take by [...] needed for Nausea or Vomiting. Filed Vitals: 12/03/16 1028 BP: 129/55 Pulse: 83 Temp: 36.9 C (98.4 F) TempSrc: Oral Resp: 18 Height: 139.7 cm (55") Weight: 47.446 kg (104 lb 9.6 oz) SpO2: 98% Body mass index is 24.31 kg/(m^2). Pain Score: Zero Pain Addressed: N/A [...] inguinal adenopathy. Neurological: She is alert. Skin: papular rash inner aspect of left foot consistent with contact dermatitis Psychiatric: She has a normal mood and affect. Nursing note and vitals reviewed. Results for orders placed or performed during the hospital encounter of (from the past 336 hour(s)) CBC AND DIFF Result Value Ref Range White Blood Cells 4.3 [...] Basophil Count 0.00 0 - 0.20 K/UL Assessment and Plan: 1. Stage III (cT4b N2 M0) strongly hormone positive, HER-2 negative invasive ductal carcinoma of the left breast with extensive skin involvement responding to weekly Taxol Plan: 1. Doing well. Tolerating treatment without significant issues. Responding nicely in the breast, but she definitely still has some evident skin disease. Her lymph nodes are clearly smaller. 2. Continue weekly Taxol with [id number]=712/03/2016. 3. Dexamethasone 4mg PO day 1. 4. We will plan to follow her Taxol with dose dense AC and she will see me for a teach visit on Day1 of Cycle 1. Discussed briefly today as she has concerns regarding the schedule. in this encounter Plan of Treatment Not on fileas of this encounter Visit Diagnoses Diagnosis Malignant neoplasm of upper-outer quadrant of left female breast (HCC) - Primary Malignant neoplasm of upper-outer quadrant of female breast in this encounter
--- OUTSIDE RECORDS SUMMARY | 2017-02-08 12:25 | XMS REPORT | Encounter Summary ---
Author Author [facility] Organization [facility] Address Unknown Phone Unavailable Care Team Providers Care Master Of Ceremonies Name Role Phone PCP Unavailable Reason for Visit * Reason Comments Heme/Onc Care * Treatment (Routine) Status Reason Specialty Diagnoses / Referred By Referred To Procedures Contact Contact Closed Hematology and Diagnoses Rafael Hemphill Marc S, Oncology Malignant S, [place] [address] upper-outer [place], [place] [address] female breast Phone: Phone: (HCC) [phone] PACLitaxel Fax: (TAXOL) - [id number] P rocedures TAXOL Encounter Details Date Type Department Care Team Description 12/10/2016 [facility] Irasema Lopez [place] [address] [place] [address] [address] [place] [address] [place] [address] Social History Tobacco Use Types Packs/Day Years Used Date Never Smoker Smokeless Tobacco: Never Used Alcohol Use Drinks/Week oz/Week Comments No 0 Standard 0.0 drinks or equivalent Sex Assigned at Date Recorded Not on file as of this encounter Last Filed Vital Signs Vital Sign Reading Time Taken Blood Pressure 131/57 12/10/2016 10:36 AM CDT Pulse 83 12/10/2016 10:36 AM CDT Temperature 36.4 C (97.6 F) 12/10/2016 10:36 AM CDT Respiratory Rate 18 12/10/2016 10:36 AM CDT Oxygen Saturation 98% 12/10/2016 10:36 AM CDT Inhaled Oxygen - - Concentration Weight 47.1 kg (103 lb 12.8 oz) 12/10/2016 10:36 AM CDT Height 139.7 cm (4' 7") 12/10/2016 10:36 AM CDT Body Mass Index 24.13 12/10/2016 10:36 AM CDT in this encounter Functional Status [...] impairment: No 12/10/2016 as of this encounter Discharge Instructions * Patient Instructions - Naye Fulton RN - 12/10/2016 10:47 AM CDT Call Immediately to report the following: Uncontrolled nausea and/or vomiting, uncontrolled pain, or unusual bleeding. Temperature of 100.4 F or greater and/or any sign/symptom of infection (redness , warmth, tenderness) Painful mouth or difficulty swallowing Red, cracked, or painful hands and/or feet Diarrhea Swelling of arms or legs Rash Important Phone Numbers: Cancer Center Main Number (answered 24 hours a day) [phone] Cancer Center Scheduling (appointments) [phone] OR [phone] [facility] Action (for nutritional supplements) [phone] in this encounter Medications at Time of [...] as of this encounter Progress Notes * Naye Fulton, RN - 12/10/2016 10:46 AM CDT Port accessed. Labs drawn. Pt denies complaints. Pt here alone. CHEMO NOTE Verified chemo consent signed and in chart. Verified initiate chemo order in O2 Blood return positive via: Port (Single) Premedications/Prehydration given as ordered. BSA and dose double checked Arm band verified at bedside with second RN Labs/applicable tests checked: CBC and CMP Chemo drug/dose/route: Taxol Rate verified with second RN Patient education offered and stated understanding. Pt tolerated treatment without difficulty. Port de-accessed. Pt discharged to home in stable condition. in this encounter Plan of Treatment Not on fileas of this encounter Visit Diagnoses Diagnosis Malignant neoplasm of upper-outer quadrant of left breast in female, estrogen receptor positive (HCC) - Primary Malignant neoplasm of upper-outer quadrant of left female breast (HCC) Malignant neoplasm of upper-outer quadrant of female breast in this encounter Administered Medications Medication Order MAR Action Action Date Dose Rate Site dexamethasone (DECADRON) tablet 4 mg Given 12/10/2016 4 mg 4 mg, Oral, ONCE, 1 dose, Tue12/10/16 at 11:00 CDT 1045 diphenhydrAMINE (BENADRYL) injection Given 12/10/2016 12.5 mg 12.5-25 mg 11:01 CDT 12.5-25 mg, Intravenous, ONCE, 1 dose, Tue12/10/16 at 1045 famotidine (PEPCID) injection 20 mg Given 12/10/2016 20 mg 20 mg, Intravenous, ONCE, 1 dose, Tue 11:00 CDT 12/10/16 at 1045, DILUTE W/ 10ML NS OR D5W. GIVE IV PUSH OVER 2 MIN heparin lock flush PF syringe 500 Units Given 12/10/2016 500 Units 500 Units, Intravenous, ONCE, 1 dose, 12:35 CDT Tue12/10/16 at 1230, NOTE: This is a HIGH ALERT Medication. PACLitaxel (TAXOL) 108.798 mg in sodium Given - New 12/10/2016 108.798 mg 268.1 mL/hr chloride 0.9% (NS) 268.133 mL IVPB Bag 11:33 CDT (non-PVC) 108.798 mg (rounded from 108.8 mg=80 mg/m2 1.36 m2 Treatment plan recorded BSA), Intravenous, 268.133 mL, Administer over 1 Hours, ONCE, 1 dose, Tue12/10/16 at 1115, SPECIAL TUBING REQUIRED NURSING: To be administered by Chemotherapy Competency-validated nurse. NOTE: This is a HIGH ALERT Medication. in this encounter
--- OUTSIDE RECORDS SUMMARY | 2017-02-08 12:26 | XMS REPORT | Encounter Summary ---
Author Author [facility] Organization [facility] Address Unknown Phone Unavailable Care Team Providers Care Travel Agency Manager Name Role Phone PCP Unavailable Reason for Visit * Treatment (Routine) Status Reason Specialty Diagnoses / Referred By Referred To Procedures Contact Contact Closed Hematology and Diagnoses Rafael Hemphill Marc S, Oncology Malignant [place] [address] [facility], [place] [address] female breast Phone: Phone: (HCC) [phone] PACLitaxel Fax: (TAXOL) - [id number] P rocedures TAXOL Encounter Details Date Type Department Care Team Description 11/19/2016 [facility] Rafael Hem[place]ill [place] [address] [place] [address] [phone] [place] [address] Social History Tobacco Use Types [...] Patient Instructions - Manisha Membreno RN - 11/19/2016 8:36 AM CDT Call Immediately to report the [...] Main Number (answered 24 hours a day) [phone] Cancer Center Scheduling (appointments) [phone] OR [phone] Cancer Action (for nutritional supplements) [phone] in this encounter Medications at Time of [...] of this encounter Progress Notes * Manisha Membreno RN - 11/19/2016 11:55 AM CDT Labs drawn from port without difficulties. She states that she is doing good today, no new issues since last treatment. Seen by Dr. Eaton. Ok to treat. CHEMO NOTE Verified chemo consent signed and in chart. Verified initiate chemo order in O2 Blood return positive via: Port (Power Port) Premedications/Prehydration given as ordered. BSA and dose double checked (agree with orders as written) with: Diane Washington RN Arm band verified at bedside with second RN (same RN as above unless otherwise noted). Labs/applicable tests checked: CBC and CMP Chemo drug/dose/route: Taxol 80mg/m2 IV Rate verified with second RN (same RN as above unless otherwise noted). Patient education offered and stated understanding. Tolerated treatment well. Discharged in good condition. in this encounter Plan of Treatment Not on fileas of this encounter Visit Diagnoses Diagnosis Malignant neoplasm of upper-outer quadrant of left female breast (HCC) - Primary Malignant neoplasm of upper-outer quadrant of female breast in this encounter Administered Medications Medication Order MAR Action Action Date Dose Rate Site dexamethasone (DECADRON) tablet 4 mg Given 11/19/2016 4 mg 4 mg, Oral, ONCE, 1 dose, Tue11/19/16 at 09:31 CDT 0930 diphenhydrAMINE (BENADRYL) injection Given 11/19/2016 12.5 mg 12.5-25 mg 09:31 CDT 12.5-25 mg, Intravenous, ONCE, 1 dose, Tue11/19/16 at 0930 famotidine (PEPCID) injection 20 mg Given 11/19/2016 20 mg 20 mg, Intravenous, ONCE, 1 dose, Tue 09:35 CDT 11/19/16 at 0930, DILUTE W/ 10ML NS OR D5W. GIVE IV PUSH OVER 2 MIN heparin lock flush PF syringe 500 Units Given 11/19/2016 500 Units 500 Units, Intravenous, ONCE, 1 dose, 11:53 CDT Tue11/19/16 at 1200, NOTE: This is a HIGH ALERT Medication. PACLitaxel (TAXOL) 108.798 mg in sodium Given - New 11/19/2016 108.798 mg 268.1 mL/hr chloride 0.9% (NS) 268.133 mL IVPB Bag 10:50 CDT (non-PVC) 108.798 mg (rounded from 108.8 mg=80 mg/m2 1.36 m2 Treatment plan recorded BSA), Intravenous, 268.133 mL, Administer over 1 Hours, ONCE, 1 dose, Tue11/19/16 at 1000, SPECIAL TUBING REQUIRED NURSING: To be administered by Chemotherapy Competency-validated nurse. NOTE: This is a HIGH ALERT Medication. in this encounter
--- OUTSIDE RECORDS SUMMARY | 2017-02-08 12:26 | XMS REPORT | Encounter Summary ---
Author Author [facility] Organization [facility] Address Unknown Phone Unavailable Care Team Providers Care Kitchenhand Name Role Phone PCP Unavailable Encounter Details Date Type Department Care Team Description 11/19/2016 Hospital [facility] Rafael Hemphlil MD Encounter Cancer Center - OP Lab [address] [place], [place] [id number] [phone] Social History Tobacco Use Types Packs/Day Years [...] impairment: No 11/19/2016 as of this encounter Medications at Time [...] this encounter Results * COMPREHENSIVE METABOLIC PANEL (11/19/2016 8:45 AM) Component Value Ref Range Sodium 138 137 - 147 MMOL/L Potassium 4.1 3.5 - 5.1 MMOL/L Chloride 106 98 - 110 MMOL/L Glucose 91 70 - 100 MG/DL Blood Urea Nitrogen 16 7 - 25 MG/DL Creatinine 0.58 0.4 - 1.00 MG/DL Calcium 9.3 8.5 - 10.6 MG/DL Total Protein 6.4 6.0 - 8.0 G/DL Total Bilirubin 0.2 (L) 0.3 - 1.2 MG/DL Albumin 3.6 3.5 - 5.0 G/DL Alk Phosphatase 43 25 - 110 U/L AST (SGOT) 16 7 - 40 U/L CO2 26 21 - 30 MMOL/L ALT (SGPT) 17 7 - 56 U/L Anion Gap 6 [...] Specimen Performing Laboratory Blood MAIN LAB [address] [place] [address] * CBC AND DIFF (11/19/2016 8:45 AM) Component Value Ref Range White Blood Cells 4.3 (L) 4.5 - 11.0 K/UL RBC 3.71 (L) 4.0 - 5.0 M/UL Hemoglobin 12.2 12.0 - 15.0 GM/DL Hematocrit 35.8 (L) 36 - 45 % MCV 96.5 80 - 100 FL MCH 32.9 26 - 34 PG MCHC 34.0 32.0 - 36.0 G/DL RDW 15.0 11 - 15 % Platelet Count 281 150 - 400 K/UL MPV 7.8 7 - 11 FL Neutrophils 61 41 - 77 % Lymphocytes 27 24 - 44 % Monocytes 9 4 - 12 % Eosinophils 2 0 - 5 % Basophils 1 0 - 2 % Absolute Neutrophil Count 2.60 1.8 - 7.0 K/UL Absolute Lymph Count 1.20 1.0 - 4.8 K/UL Absolute Monocyte Count 0.40 0 - 0.80 K/UL Absolute Eosinophil Count 0.10 0 - 0.45 K/UL Absolute Basophil Count 0.10 0 - 0.20 K/UL Specimen Performing Laboratory Blood [facility] [address] [address] in this encounter Visit Diagnoses Diagnosis Malignant neoplasm of upper-outer quadrant of left female breast (HCC) Malignant neoplasm of upper-outer quadrant of female breast in this encounter
--- OUTSIDE RECORDS SUMMARY | 2017-02-08 12:26 | XMS REPORT | Encounter Summary ---
Author Author [facility] Organization [facility] Address Unknown Phone Unavailable Care Team Providers Care Napkin Band Wrapper Name Role Phone PCP Unavailable Encounter Details Date Type Department Care Team Description 11/26/2016 Hospital [facility] Irasema Lopez APRN Encounter Cancer Center - OP Lab [address] [place] [address] [place] [address] [phone] Social History Tobacco Use Types Packs/Day Years [...] this encounter Results * COMPREHENSIVE METABOLIC PANEL (11/26/2016 10:48 AM) Component Value Ref Range Sodium 137 137 - 147 MMOL/L Potassium 4.1 3.5 - 5.1 MMOL/L Chloride 106 98 - 110 MMOL/L Glucose 92 70 - 100 MG/DL Blood Urea Nitrogen 25 7 - 25 MG/DL Creatinine 0.53 0.4 - 1.00 MG/DL Calcium 9.0 8.5 - 10.6 MG/DL Total Protein 6.4 6.0 - 8.0 G/DL Total Bilirubin 0.2 (L) 0.3 - 1.2 MG/DL Albumin 3.6 3.5 - 5.0 G/DL Alk Phosphatase 40 25 - 110 U/L AST (SGOT) 14 7 - 40 U/L CO2 25 21 - 30 MMOL/L ALT (SGPT) 10 7 - 56 U/L Anion Gap 6 [...] Specimen Performing Laboratory Blood MAIN LAB [address] [place] [address] * CBC AND DIFF (11/26/2016 10:48 AM) Component Value Ref Range White Blood Cells 4.4 (L) 4.5 - 11.0 K/UL RBC 3.60 (L) 4.0 - 5.0 M/UL Hemoglobin 11.7 (L) 12.0 - 15.0 GM/DL Hematocrit 35.2 (L) 36 - 45 % MCV 97.7 80 - 100 FL MCH 32.5 26 - 34 PG MCHC 33.3 32.0 - 36.0 G/DL RDW 14.9 11 - 15 % Platelet Count 292 150 - 400 K/UL MPV 7.7 7 - 11 FL Neutrophils 63 41 - 77 % Lymphocytes 25 24 - 44 % Monocytes 9 4 - 12 % Eosinophils 2 0 - 5 % Basophils 1 0 - 2 % Absolute Neutrophil Count 2.70 1.8 - 7.0 K/UL Absolute Lymph Count 1.10 1.0 - 4.8 K/UL Absolute Monocyte Count 0.40 0 - 0.80 K/UL Absolute Eosinophil Count 0.10 0 - 0.45 K/UL Absolute Basophil Count 0.10 0 - 0.20 K/UL Specimen Performing Laboratory Blood [facility] [address] [address] in this encounter Visit Diagnoses Diagnosis Malignant neoplasm of upper-outer quadrant of left female breast (HCC) Malignant neoplasm of upper-outer quadrant of female breast in this encounter
--- OUTSIDE RECORDS SUMMARY | 2017-02-08 12:26 | XMS REPORT | Continuity of Care Document ---
Author Author [facility] Organization [facility] Address Unknown Phone Unavailable Allergies Medications Problems Procedures Results Encounters ACCT No. Visit Date/Time Discharge Status Pt. Type Provider Facility Loc./Unit Complaint [id number] 03/30/2014 02:43:00 2013 04:44:00 DIS Emergency [id number] 11/11/2012 12:15:00 2012 23:59:59 CLS Outpatient
--- OUTSIDE RECORDS SUMMARY | 2017-02-08 12:26 | XMS REPORT | Encounter Summary ---
Author Author [facility] Organization [facility] Address Unknown Phone Unavailable Care Team Providers Care Bag Hanger Name Role Phone PCP Unavailable Reason for Visit * Reason Comments Heme/Onc Care Encounter Details Date Type Department Care Team Description 11/19/2016 Office Visit [facility] Rafael Hemphill MD Malignant neoplasm of Cancer Center - OP Exam [address] [place] [address] [place] [address] left female breast (HCC) [place], [place] [phone] (Primary Dx) [address] [phone] Social History Tobacco Use Types Packs/Day Years Used Date Never Smoker Smokeless Tobacco: Never Used Alcohol Use Drinks/Week oz/Week Comments No 0 Standard 0.0 drinks or equivalent Sex Assigned at Date Recorded Not on file as of this encounter Last Filed Vital Signs Vital Sign Reading Time Taken Blood Pressure 142/64 11/19/2016 8:25 AM CDT Pulse 91 11/19/2016 8:25 AM CDT Temperature 36.6 C (97.9 F) 11/19/2016 8:25 AM CDT Respiratory Rate 18 11/19/2016 8:25 AM CDT Oxygen Saturation 97% 11/19/2016 8:25 AM CDT Inhaled Oxygen - - Concentration Weight 47.5 kg (104 lb 12.8 oz) 11/19/2016 8:25 AM CDT Height 139.7 cm (4' 7") 11/19/2016 8:25 AM CDT Body Mass Index 24.36 11/19/2016 8:25 AM CDT in this encounter Functional Status [...] impairment: No 11/19/2016 as of this encounter Progress Notes * Rafael Hemphill MD - 11/19/2016 8:50 AM CDT Formatting of this note may be different from the original. Date of Service: 11/19/2016 Subjective: Reason for Visit: Heme/Onc Care Naye [...] Bilateral diagnostic mammogram and ultrasound performed at [facility] in [place] showed an approximately 4 cm left breast [...] invasive ductal carcinoma, grade 2, ER 98%, AR 89%, HER-2 0+ Ki-67 37%. 5. CT CAP and bone scan negative for metastatic disease. 6. Discussed in multidisciplinary conference and katalina-adjuvant chemotherapy recommended. 7. Weekly Taxol -> ddAC started 09/20/16 Interim History: Continues to do very well. School year is over and she is happy to have some more time. Her breast lesion is improving some. No GI toxicities. No fevers or infections. Eating well and weight stable. No neuropathy or myalgias. No interim infections, hospitalizations or transfusions. I [...] needed for Nausea or Vomiting. Filed Vitals: 11/19/16 0825 BP: 142/64 Pulse: 91 Temp: 36.6 C (97.9 F) TempSrc: Oral Resp: 18 Height: 139.7 cm (55") Weight: 47.537 kg (104 lb 12.8 oz) SpO2: 97% Body mass index is 24.36 kg/(m^2). Pain Score: Zero Pain Addressed: N/A [...] Large left breast mass with skin involvement, demonstrably better than prior exams. She remains with extensive disease around the nipple. Her left axillary lymph node disease is demonstrably improved with only one or perhaps 2 small palpable nodes on today's exam. Abdominal: Soft. Musculoskeletal: She exhibits no edema. Lymphadenopathy: No palpable cervical, supraclavicular, axillary or inguinal adenopathy. Neurological: She is alert. Skin: No rash noted. Psychiatric: She has a normal mood and affect. Nursing note and vitals reviewed. Assessment and Plan: Malignant neoplasm of upper-outer quadrant of left female breast (HCC) Impression: 1. 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 Right breast mammographic abnormalities, biopsied and benign 3. 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 ECOG PS 0 Plan: 1. Doing well. Tolerating treatment without significant issues. Responding nicely in the breast, but she definitely still has some evident skin disease. Her lymph nodes are clearly smaller. 2. Continue weekly Taxol with C9D1=11/19/2016. 3. Dexamethasone 4mg PO day 1. 4. We will plan to follow her Taxol with dose dense AC. 5. I will schedule her to meet with the nurse practitioner for toxicity evaluation in 2 weeks time and to have a same-day chemotherapy teaching visit for her dose dense AC on December 17. We will also schedule out the remaining chemotherapy for her over the summer to accommodate some of her scheduling constraints. 6. Dr. Oliver and I will work closely [...] attempt a toilet mastectomy down the line. 7. RTC with SET UP MOLD TECHNICIAN in 2 weeks and 4 weeks per above, with me in 6 weeks or sooner should new or concerning symptoms [...]
--- OUTSIDE RECORDS SUMMARY | 2017-02-08 12:26 | XMS REPORT | Encounter Summary ---
Author Author [facility] Organization [facility] Address Unknown Phone Unavailable Care Team Providers Care Industrial Garage Servicer Name Role Phone PCP Unavailable Encounter Details Date Type Department Care Team Description 11/19/2016 Orders Only [facility] Rafael Hemphill MD Cancer Center - OP Exam [id number] [address] [place] [address] [phone] [address] [phone] Social History Tobacco Use Types Packs/Day Years [...] impairment: No 11/19/2016 as of this encounter Plan of Treatment Not on fileas of this encounter Visit Diagnoses Not on filein this encounter
--- OUTSIDE RECORDS SUMMARY | 2017-02-08 12:26 | XMS REPORT | Encounter Summary ---
Author Author [facility] Organization [facility] Address Unknown Phone Unavailable Care Team Providers Care Jewel Supervisor Name Role Phone PCP Unavailable Encounter Details Date Type Department Care Team Description 11/12/2016 Hospital [facility] Rafael Hemphill MD Encounter Cancer Center - OP Lab [address] [place], [place] [id number] [phone] Social History Tobacco Use Types Packs/Day Years Used Date Never Smoker Smokeless Tobacco: Never Used Alcohol Use Drinks/Week oz/Week Comments No 0 Standard 0.0 drinks or equivalent Sex Assigned at Date Recorded Not on file as of this encounter Functional Status Functional Status Response Date of Assessment Does the patient have a hearing impairment: No 11/12/2016 Does the patient have a visual impairment: Yes 11/12/2016 Does the patient have impaired ambulation: No 11/12/2016 Does the patient have an activity of daily living No 11/12/2016 (ADL) impairment: Does the patient have an instrumental activity of No 11/12/2016 daily living (IADL) impairment: Cognitive Status Response Date of Assessment Does the patient have a cognitive impairment: No 11/12/2016 as of this encounter Medications at Time [...] this encounter Results * COMPREHENSIVE METABOLIC PANEL (11/12/2016 8:34 AM) Component Value Ref Range Sodium 139 137 - 147 MMOL/L Potassium 4.0 3.5 - 5.1 MMOL/L Chloride 105 98 - 110 MMOL/L Glucose 89 70 - 100 MG/DL Blood Urea Nitrogen 16 7 - 25 MG/DL Creatinine 0.52 0.4 - 1.00 MG/DL Calcium 9.1 8.5 - 10.6 MG/DL Total Protein 6.2 6.0 - 8.0 G/DL Total Bilirubin 0.3 0.3 - 1.2 MG/DL Albumin 3.5 3.5 - 5.0 G/DL Alk Phosphatase 43 25 - 110 U/L AST (SGOT) 18 7 - 40 U/L CO2 25 21 - 30 MMOL/L ALT (SGPT) 18 7 - 56 U/L Anion Gap 9 3 - 12 eGFR Non >60 >60 [...] Specimen Performing Laboratory Blood MAIN LAB [address] [place] [address] * CBC AND DIFF (11/12/2016 8:34 AM) Component Value Ref Range White Blood Cells 3.9 (L) 4.5 - 11.0 K/UL RBC 3.68 (L) 4.0 - 5.0 M/UL Hemoglobin 12.0 12.0 - 15.0 GM/DL Hematocrit 35.6 (L) 36 - 45 % MCV 96.8 80 - 100 FL MCH 32.6 26 - 34 PG MCHC 33.7 32.0 - 36.0 G/DL RDW 15.4 (H) 11 - 15 % Platelet Count 285 150 - 400 K/UL MPV 7.6 7 - 11 FL Neutrophils 64 41 - 77 % Lymphocytes 25 24 - 44 % Monocytes 8 4 - 12 % Eosinophils 2 0 - 5 % Basophils 1 0 - 2 % Absolute Neutrophil Count 2.50 1.8 - 7.0 K/UL Absolute Lymph Count 0.90 (L) 1.0 - 4.8 K/UL Absolute Monocyte Count 0.30 0 - 0.80 K/UL Absolute Eosinophil Count 0.10 0 - 0.45 K/UL Absolute Basophil Count 0.00 0 - 0.20 K/UL Specimen Performing Laboratory Blood [facility] [address] [address] in this encounter Visit Diagnoses Diagnosis Malignant neoplasm of upper-outer quadrant of left female breast (HCC) Malignant neoplasm of upper-outer quadrant of female breast in this encounter
--- OUTSIDE RECORDS SUMMARY | 2017-02-08 12:26 | XMS REPORT | Encounter Summary ---
Author Author [facility] Organization [facility] Address Unknown Phone Unavailable Care Team Providers Care Biometrics Experimentalist Name Role Phone PCP Unavailable Reason for Visit * Reason Comments Chemotherapy * Treatment (Routine) Status Reason Specialty Diagnoses / Referred By Referred To Procedures Contact Contact Closed Hematology and Diagnoses Rafael Hemphill Marc S, Oncology Malignant S, [place] [address] [place] quadrant [place] [address] female breast Phone: Phone: (HCC) [phone] PACLitaxel Fax: (TAXOL) - [id number] P rocedures TAXOL Encounter Details Date Type Department Care Team Description 11/12/2016 [facility] Rafael Hem[place]ill [place] [address] [place] [address] [address] [place] [address] [place] [address] Social History Tobacco Use Types Packs/Day Years Used Date Never Smoker Smokeless Tobacco: Never Used Alcohol Use Drinks/Week oz/Week Comments No 0 Standard 0.0 drinks or equivalent Sex Assigned at Date Recorded Not on file as of this encounter Last Filed Vital Signs Vital Sign Reading Time Taken Blood Pressure 131/69 11/12/2016 8:16 AM CDT Pulse 85 11/12/2016 8:16 AM CDT Temperature 36.9 C (98.5 F) 11/12/2016 8:16 AM CDT Respiratory Rate 18 11/12/2016 8:16 AM CDT Oxygen Saturation 97% 11/12/2016 8:16 AM CDT Inhaled Oxygen - - Concentration Weight 48.1 kg (106 lb) 11/12/2016 8:16 AM CDT Height 139.7 cm (4' 7") 11/12/2016 8:16 AM CDT Body Mass Index 24.64 11/12/2016 8:16 AM CDT in this encounter Functional Status [...] impairment: No 11/12/2016 as of this encounter Discharge Instructions * Patient Instructions - Diane Washington RN - 11/12/2016 8:38 AM CDT Call Immediately to report the [...] Main Number (answered 24 hours a day) [phone] Cancer Center Scheduling (appointments) [phone] [facility] (for nutritional supplements) [phone] in this encounter Medications at Time of [...] of this encounter Progress Notes * Diane Washington, RN - 11/12/2016 8:37 AM CDT CHEMO NOTE Verified chemo consent signed and in chart. Verified initiate chemo order in O2 Blood return positive via: Port (Single, Power Port and Accessed) Premedications/Prehydration given as ordered. Decadron, Pepcid, Benadryl BSA and dose double checked (agree with orders as written) with: Roe Fulton RN Arm band verified at bedside with second RN (same RN as above unless otherwise noted). Labs/applicable tests checked: CBC and CMP Chemo drug/dose/route: Cycle 8 Taxol Rate verified with second RN (same RN as above unless otherwise noted). Patient education offered and stated understanding. Port accessed for labs and treatment. Labs within normal limits for treatment.Premeds administered. Taxol administered as ordered. Therapy completed and tolerated well. Discharged home ambulatory. in this encounter Plan of Treatment Not on fileas of this encounter Visit Diagnoses Diagnosis Malignant neoplasm of upper-outer quadrant of left female breast (HCC) Malignant neoplasm of upper-outer quadrant of female breast in this encounter Administered Medications Medication Order MAR Action Action Date Dose Rate Site dexamethasone (DECADRON) tablet 4 mg Given 11/12/2016 4 mg 4 mg, Oral, ONCE, 1 dose, Tue11/12/16 at 09:07 CDT 0900 diphenhydrAMINE (BENADRYL) injection Given 11/12/2016 12.5 mg 12.5-25 mg 09:10 CDT 12.5-25 mg, Intravenous, ONCE, 1 dose, Tue11/12/16 at 0900 famotidine (PEPCID) injection 20 mg Given 11/12/2016 20 mg 20 mg, Intravenous, ONCE, 1 dose, Tue 09:07 CDT 11/12/16 at 0900, DILUTE W/ 10ML NS OR D5W. GIVE IV PUSH OVER 2 MIN heparin lock flush PF syringe 500 Units Given 11/12/2016 500 Units 500 Units, Intra-catheter, ONCE, 1 dose, 10:42 CDT Tue11/12/16 at 1045, NOTE: This is a HIGH ALERT Medication. PACLitaxel (TAXOL) 108.798 mg in sodium Given - New 11/12/2016 108.798 mg 268.1 mL/hr chloride 0.9% (NS) 268.133 mL IVPB Bag 09:38 CDT (non-PVC) 108.798 mg (rounded from 108.8 mg=80 mg/m2 1.36 m2 Treatment plan actual BSA), Intravenous, 268.133 mL, for 1 Hours, ONCE, 1 dose, Tue11/12/16 at 0930, SPECIAL TUBING REQUIRED NURSING: To be administered by Chemotherapy Competency-validated nurse. NOTE: This is a HIGH ALERT Medication. in this encounter
[2017-02-08 12:38] LABS: TROPONIN I < 0.30 NG/ML (<0.30)
--- NOTE | 2017-02-08 13:12 | Diagnostic Imaging Report ---
INDICATION: Fever, fatigue. TECHNIQUE: Two view chest 12:44 PM CORRELATION STUDY: None FINDINGS: Right-sided Gnshom-m-Txyh catheter present tip at cavoatrial junction. There is a greater than 90 degree course of the proximal catheter just distal to its insertion site. Heart size, mediastinum and vasculature within normal limits. Calcification of the aortic arch. Calcific granulomas left mid lung field. Lungs clear of infiltrate. Mild diffuse bony demineralization multilevel degenerative change about the thoracic spine. IMPRESSION: 1. Negative for acute abnormality of the chest. Dictated by: Dictated on workstation # [id number]
[2017-02-08] MEDS ORDERED: CEFEPIME INJECTION 2,000 MG in NS (IVPB) 50 ML IV ONE (14:00)
[2017-02-08] MEDS ORDERED: NS IV 1000 ML 1,000 ML ONE (14:19)
--- OUTSIDE RECORDS SUMMARY | 2017-02-08 15:19 | XMS REPORT | Continuity of Care Document ---
Author Author [facility] Address Unknown Phone Unavailable Care Team Providers Care Hot Frame Tender Name Role Phone [employer] Unavailable Unavailable Problems Medications Allergies, Adverse Reactions, Alerts Immunizations Results Vital Signs Encounters Location Location Details Encounter Type Encounter Number Reason For Visit Attending Provider ADM Date DC Date Status Source [place] SER[place] [id number] SHARATH DAILEY 01/28/2017 Active [facility] PENDING ANEL KEENAN Active [facility] PENDING [id number] ANEL KEENAN Active [facility] Procedures Plan of Care Social History Assessment and Plan Family History Value Date Source Advance Directives Order Name Results Value Date Source
--- OUTSIDE RECORDS SUMMARY | 2017-02-08 15:20 | XMS REPORT | Encounter Summary ---
Author Author [facility] Organization [facility] Address Unknown Phone Unavailable Care Team Providers Care Grades 1 Thru 6 Visiting Teacher Name Role Phone PCP Unavailable Encounter Details Date Type Department Care Team Description 02/08/2017 Hospital Medicine Telemetry Manolo Gardner MD Neutropenic fever (HCC) Encounter [address] [place] [address] [address] [address] [place] [address] [place], [place] [id number] Social History Tobacco Use Types Packs/Day Years [...] Visit Diagnoses Not on filein this encounter Admitting Diagnoses Diagnosis NEUTROPENIC FEVER in this encounter
--- OUTSIDE RECORDS SUMMARY | 2017-02-08 15:20 | XMS REPORT | Encounter Summary ---
Author Author [facility] Organization [facility] Address Unknown Phone Unavailable Care Team Providers Care Wine Pasteurizer Name Role Phone PCP Unavailable Encounter Details Date Type Department Care Team Description 01/28/2017 Hospital [facility] Martha Oliver MD Encounter Cancer Center - OP Lab [address] [place] [address] [address] [phone] Social History Tobacco Use Types Packs/Day Years [...] Performing Laboratory Blood [facility] [address] [place] [address] * CBC AND DIFF (01/28/2017 1:53 PM) [...] Manual Specimen Performing Laboratory Blood [facility] [address] [address] in this encounter Visit Diagnoses Diagnosis Malignant neoplasm of upper-outer quadrant of left breast in female, estrogen receptor positive (HCC) in this encounter
--- OUTSIDE RECORDS SUMMARY | 2017-02-08 15:20 | XMS REPORT | Clinical Summary ---
Author Author [facility] Organization [facility] Address Unknown Phone Unavailable Care Team Providers Care Medical Pathology Teacher Name Role Phone PCP Unavailable Source Comments Some departments are not documenting in the electronic medical record. If you do not see the information that you expected, contact Release of Information in the Health Information Management department at [phone] for further assistance in locating additional records.[facility] Allergies Active Allergy Reactions Severity Noted Date [...] Indications: PAIN Active Problems Problem Noted Date Neutropenic fever (HCC) 02/08/2017 Malignant neoplasm of upper-outer quadrant of left breast in female, 03/07/ 2017 estrogen receptor positive (HCC) Overview: DIAGNOSIS: Left [...] mastectomy down the line. 5. RTC with ENTERPRISE RESOURCE PLANNING CONSULTANT in 2 weeks and with me in 4 weeks, or sooner should new or concerning symptoms develop. I have discussed the diagnosis and treatment plan with the patient and she expresses understanding and wishes to proceed. Encounters Date Type Specialty Care Team Description 02/08/2017 [facility] Manolo Gardner MD Neutropenic fever (HCC) Encounter 01/31/2017 Telephone Oncology Leslie Gorman, Abstract SALES SUPPORT CONSULTANT 01/31/2017 Clinical Oncology Ghada Govea, JOSH Support 01/28/2017 Office Visit Oncology Rafael Hemphill MD Malignant neoplasm of Leslie Gorman, upper-outer quadrant of SALES SUPPORT CONSULTANT left breast in female, estrogen receptor positive (HCC) (Primary Dx) 01/28/2017 Hospital Oncology Leslie Gorman, Encounter SALES SUPPORT CONSULTANT 01/28/2017 Hospital Oncology Martha Oliver MD Encounter 01/26/2017 Telephone Oncology Audrey Mendes RN Fatigue 01/20/2017 Office Visit Oncology Martha Oliver MD Malignant neoplasm of Becky Alex PA-C upper-outer quadrant of left breast in female, estrogen receptor positive (HCC) (Primary Dx) 01/17/2017 Hospital Oncology Irasema Lopez APRN Encounter 01/14/2017 Office Visit Oncology [place], Irasema, SALES SUPPORT CONSULTANT Malignant neoplasm of upper-outer quadrant of left breast in female, estrogen receptor positive (HCC) (Primary Dx) 01/14/2017 Hospital Oncology Irasema Lopez, SALES SUPPORT CONSULTANT Encounter 01/14/2017 Hospital Oncology Irasema Lopez, SALES SUPPORT CONSULTANT Encounter 01/07/2017 Telephone Oncology Martha Oliver MD [...] 12/31/2016 Hospital Oncology Rafael Hemphill MD Encounter 12/24/2016 [facility] Oncology Irasema Lopez, SALES SUPPORT CONSULTANT Encounter 12/24/2016 [facility] Oncology Irasema Lopez, SALES SUPPORT CONSULTANT Encounter 12/24/2016 Office Visit Oncology Irasema Lopez, DESIRE Malignant neoplasm of upper-outer quadrant of left breast in female, estrogen receptor positive (HCC) (Primary Dx) 12/20/2016 [facility] Oncology Irasema Lopez, SALES SUPPORT CONSULTANT Encounter 12/17/2016 [facility] Oncology Irasema Lopez, SALES SUPPORT CONSULTANT Encounter 12/17/2016 Office Visit Oncology Irasema Lopez, DESIRE Malignant neoplasm of upper-outer quadrant of left breast in female, estrogen receptor positive (HCC) (Primary Dx) 12/10/2016 [facility] Oncology Irasema Lopez, SALES SUPPORT CONSULTANT Encounter 12/10/2016 [facility] Oncology Irasema Lopez, SALES SUPPORT CONSULTANT Encounter 12/09/2016 Orders Only Oncology Rafael Hemphill MD 12/03/2016 Office Visit Oncology Irasema Lopez, DESIRE Malignant neoplasm of upper-outer quadrant of left female breast (HCC) (Primary Dx) 12/03/2016 [facility] Oncology Irasema Lopez, SALES SUPPORT CONSULTANT Encounter 12/03/2016 [facility] Oncology Tatiana Valdez, SALES SUPPORT CONSULTANT Encounter Irasema Lopez, SALES SUPPORT CONSULTANT 11/26/2016 [facility] Oncology Irasema Lopez APRN Encounter 11/26/2016 [facility] Oncology Irasema Lopez APRN Encounter 11/19/2016 Office Visit Oncology Rafael Hemphill MD Malignant neoplasm of upper-outer quadrant of left female breast (HCC) (Primary Dx) 11/19/2016 [facility] Oncology Rafael Hemphill [...] Blood [facility] [place] [address] [place] [id number] * COMPREHENSIVE METABOLIC PANEL (01/28/2017 1:53 PM) [...] Performing Laboratory Blood [facility] [address] [place] [address] from Last 3 Months
--- OUTSIDE RECORDS SUMMARY | 2017-02-08 15:20 | XMS REPORT | Encounter Summary ---
Author Author [facility] Organization [facility] Address Unknown Phone Unavailable Care Team Providers Care Product Mgr Name Role Phone PCP Unavailable Reason for Visit * Reason Comments Abstract Encounter Details Date Type Department Care Team Description 01/31/2017 Telephone [facility] Leslie Gorman, Jemal Cancer [facility] - OP Exam EXT JS DEVELOPER [address] [phone] Social History Tobacco Use Types Packs/Day Years [...]
--- OUTSIDE RECORDS SUMMARY | 2017-02-08 15:20 | XMS REPORT | Encounter Summary ---
Author Author [facility] Organization [facility] Address Unknown Phone Unavailable Care Team Providers Care Worker'S Compensation Claims Examiner Name Role Phone PCP Unavailable Reason for Visit * Treatment (Routine) Status Reason Specialty Diagnoses / Referred By Referred To Procedures Contact Contact Authorized Hematology and Diagnoses Rafael Hemphill Marc S, Oncology Malignant [place] [address] upper-outer [place], [place], [place] [address] female breast Phone: Phone: ([facility]) [phone] DOXOrubicin Fax: (ADRI[facility]YCIN) - [phone] J9000; Cyclophosphamide (CYTOXAN) - J9070; Pegfilgrastim (NEULASTA) J2505; [id number];Emen d-[id number] P rocedures AC NEULASTA Encounter Details Date Type Department Care Team Description 01/28/2017 [facility] Leslie Gorman, Nikia [facility] - OP GOODS LAYER Treatment [address] [place] [address] [place] [phone] Social History Tobacco Use Types Packs/Day Years [...] Main Number (answered 24 hours a day) [phone] Cancer Center Scheduling (appointments) [phone] [id number] [facility] (for nutritional supplements) [phone] in this encounter Medications at Time of [...]
--- OUTSIDE RECORDS SUMMARY | 2017-02-08 15:20 | XMS REPORT | Encounter Summary ---
Author Author [facility] Organization [facility] Address Unknown Phone Unavailable Care Team Providers Care Rn Practitioner Name Role Phone PCP Unavailable Reason for Visit * Reason Comments Heme/Onc Care Encounter Details Date Type Department Care Team Description 01/28/2017 Office Visit [facility] Rafael Hemphill MD Malignant neoplasm of Cancer Center - OP Exam [address] upper-[place] [address] [place] [address] left breast in female, [place], [place] [phone] estrogen receptor [phone] positive (HCC) (Primary [phone] J Dx) alexomidLeslie Carrasco, COIN MACHINE COLLECTOR SUPERVISOR [address] [place] [address] [phone] Social History Tobacco Use Types Packs/Day Years [...] this encounter Progress Notes * Leslie Gorman, COIN MACHINE COLLECTOR SUPERVISOR - 01/28/2017 2:00 PM CDT Formatting of [...] Bilateral diagnostic mammogram and ultrasound performed at [facility] in [place] showed an approximately 4 cm left breast [...] invasive ductal carcinoma, grade 2, ER 98%, GA 89%, HER-2 0+ Ki-67 37%. 5. CT [...] Bilateral diagnostic mammogram and ultrasound performed at [facility] in [place] showed an approximately 4 cm left breast [...] invasive ductal carcinoma, grade 2, ER 98%, GA 89%, HER-2 0+ Ki-67 37%. CT CAP [...]
--- OUTSIDE RECORDS SUMMARY | 2017-02-08 15:20 | XMS REPORT | Encounter Summary ---
Author Author [facility] Organization [facility] Address Unknown Phone Unavailable Care Team Providers Care Gill Tender Name Role Phone PCP Unavailable Reason for Visit * Reason Comments Fatigue Encounter Details Date Type Department Care Team Description 01/26/2017 Telephone [facility] Audrey Mendes RN [facility] Cancer Center - OP Exam [address] [address] Social History Tobacco Use Types [...]
--- OUTSIDE RECORDS SUMMARY | 2017-02-08 15:20 | XMS REPORT | Encounter Summary ---
Author Author [facility] Organization [facility] Address Unknown Phone Unavailable Care Team Providers Care Collar Baster Name Role Phone PCP Unavailable Reason for Visit * Reason Comments Heme/Onc Care Encounter Details Date Type Department Care Team Description 01/20/2017 Office Visit [facility] Martha Oliver MD Malignant neoplasm of Cancer Center - [place] Exam [address] upper-outer quadrant of [address] [place] [address] left breast in female, [place] [address] [place] [address] estrogen receptor [phone] positive (HCC) (Primary Dx) M Becky romero PA-C [address] [place] [address] [place] [address] [phone] Social History Tobacco Use Types Packs/Day Years [...] calcifications. Ultrasound: -- Bilateral breast ultrasound 08/03/16 ([facility]) revealed a 4.1 x 2.8 cm mass [...] Breast cancer, left (HCC) 07/2016 Stage III ([id number]) strong hormone +, HER-2 negative IDC. Hepatic [...] involved lymph node, dx 07/2016. Stage IIIB, [id number] Ms. Harvey is tolerating neoadjuvant chemotherapy, and [...]
--- OUTSIDE RECORDS SUMMARY | 2017-02-08 15:20 | XMS REPORT | Encounter Summary ---
Author Author [facility] Organization [facility] Address Unknown Phone Unavailable Care Team Providers Care Loading Dock Helper Name Role Phone PCP Unavailable Encounter Details Date Type Department Care Team Description 01/31/2017 Clinical [facility] Ghada Govea RD Support Cancer Center - OP Exam [address] [place] [address] [place] [address] Social History Tobacco Use [...] Ghada Govea RD - 01/31/2017 11:[address] [facility] Cancer Center Clinical Nutrition Note: Attempted to [...] being away from work. Ghada Govea RDN, ONCOLOGY RN, LDN Oncology Salesperson Furs Pager: [phone] in this encounter Plan of Treatment Not on fileas of this encounter Visit Diagnoses Not on filein this encounter
--- OUTSIDE RECORDS SUMMARY | 2017-02-08 15:21 | XMS REPORT | Encounter Summary ---
Author Author [facility] Organization [facility] Address Unknown Phone Unavailable Care Team Providers Care Janitor Helper Name Role Phone PCP Unavailable Reason for Visit * Reason Comments Heme/Onc Care Encounter Details Date Type Department Care Team Description 12/31/2016 Office Visit [facility] Rafael Hemphill MD Malignant neoplasm of Cancer Center - OP Exam [address] upper-outer quadrant [place] [address] [place] [address] left breast in female, [place], [place] [phone] estrogen receptor [phone] positive (HCC) (Primary [phone] Dx) Social History Tobacco Use Types Packs/Day [...] mammogram and ultrasound performed at [facility] in [place] showed an approximately 4 cm left breast [...] invasive ductal carcinoma, grade 2, ER 98%, MD 89%, HER-2 0+ Ki-67 37%. 5. CT [...] mastectomy down the line. 5. RTC with AUTOMOTIVE INSTRUCTOR in 2 weeks and with me in [...]
--- OUTSIDE RECORDS SUMMARY | 2017-02-08 15:21 | XMS REPORT | Encounter Summary ---
Author Author [facility] Organization [facility] Address Unknown Phone Unavailable Care Team Providers Care Food Service Manager Name Role Phone PCP Unavailable Reason for Visit * Reason Comments Chemotherapy * Treatment (Routine) Status Reason Specialty Diagnoses / Referred By Referred To Procedures Contact Contact Authorized Hematology and Diagnoses Rafael Hemphill Marc S, Oncology Malignant S, [place] [address] [facility] [address] female breast Phone: Phone: ([facility]) [phone] DOXOrubicin Fax: (ADRI[facility]YCIN) - [phone] J9000; Cyclophosphamide (CYTOXAN) - J9059; Pegfilgrastim (NEULASTA) J2505; Aloxi-[id number];Emen d-J1453 P rocedures AC NEULASTA Encounter Details Date Type Department Care Team Description 12/31/2016 Hospital [facility] Rafael Hem[place]ill [place] [address] [place] [address] [phone] [place] [address] Social History Tobacco Use Types [...] Main Number (answered 24 hours a day) [phone] Cancer Center Scheduling (appointments) [phone] [id number] [facility] (for nutritional supplements) [phone] in this encounter Medications at Time of [...]
--- OUTSIDE RECORDS SUMMARY | 2017-02-08 15:21 | XMS REPORT | Encounter Summary ---
Author Author [facility] Organization [facility] Address Unknown Phone Unavailable Care Team Providers Care Receiving Operator Name Role Phone PCP Unavailable Reason for Visit * Reason Comments Appointment Encounter Details Date Type Department Care Team Description 01/03/2017 Telephone [facility] Martha Oliver MD Appointment Cancer Center - Exam [address] [place] [address] [place] [address] [phone] Social History Tobacco Use Types Packs/Day Years [...]
--- OUTSIDE RECORDS SUMMARY | 2017-02-08 15:21 | XMS REPORT | Encounter Summary ---
Author Author [facility] Organization [facility] Address Unknown Phone Unavailable Care Team Providers Care Track Repair Worker Name Role Phone PCP Unavailable Reason for Visit * Reason Comments Chemotherapy Heme/Onc Care * Treatment (Routine) Status Reason Specialty Diagnoses / Referred By Referred To Procedures Contact Contact Authorized Hematology and Diagnoses Rafael Hemphill Marc S, Oncology Malignant S, [place] [address] [place], [place] [address] female breast Phone: Phone: ([facility]) [phone] DOXOrubicin Fax: ([facility]YCIN) - [phone] J9000; Cyclophosphamide (CYTOXAN) - J9070; Pegfilgrastim (NEULASTA) J2505; Aloxi-[id number];Emen d-J1453 P rocedures AC NEULASTA Encounter Details Date Type Department Care Team Description 01/14/2017 Hospital [facility] Irasema Lopez APRN [place] [address] [place] [address] [phone] [place] [address] Social History Tobacco Use Types [...] Main Number (answered 24 hours a day) [phone] Cancer Center Scheduling (appointments) [phone] [id number] [facility] (for nutritional supplements) [phone] in this encounter Medications at Time of [...]
--- OUTSIDE RECORDS SUMMARY | 2017-02-08 15:21 | XMS REPORT | Encounter Summary ---
Author Author [facility] Organization [facility] Address Unknown Phone Unavailable Care Team Providers Care Armored Car Guard And Driver Name Role Phone PCP Unavailable Reason for Visit * Reason Comments Injection * Treatment (Routine) Status Reason Specialty Diagnoses / Referred By Referred To Procedures Contact Contact Authorized Hematology and Diagnoses Rafael Hemphill Marc S, Oncology Malignant S[place] [address] [place] [address] female breast Phone: Phone: (HCC) [phone] DOXOrubicin Fax: ([facility]) - [phone] J9000; Cyclophosphamide (CYTOXAN) - J9087; Pegfilgrastim (NEULASTA) J2505; Aloxi-[id number];Emen d-J1453 P rocedures AC NEULASTA Encounter Details Date Type Department Care Team Description 01/03/2017 Hospital [facility] Rafael Hem[place] [address] [place] [address] [phone] [place] [address] Social History Tobacco Use Types [...]
--- OUTSIDE RECORDS SUMMARY | 2017-02-08 15:21 | XMS REPORT | Encounter Summary ---
Author Author [facility] Organization [facility] Address Unknown Phone Unavailable Care Team Providers Care Larder Cook Name Role Phone PCP Unavailable Reason for Visit * Reason Comments Heme/Onc Care * Treatment (Routine) Status Reason Specialty Diagnoses / Referred By Referred To Procedures Contact Contact Authorized Hematology and Diagnoses Rafael Hemphill Marc S, Oncology Malignant S[place] [address] upper-outer [place], [place] [address] female breast Phone: Phone: (HCC) [phone] DOXOrubicin Fax: ([facility]) - [phone] J9000; Cyclophosphamide (CYTOXAN) - J9070; Pegfilgrastim (NEULASTA) J2505; Aloxi-[id number];Emen d-J1453 P endy AC NEULASTA Encounter Details Date Type Department Care Team Description 01/17/2017 Hospital [facility] Irasema [place] APR[place] [address] [place] [address] [phone] [place] [address] Social History Tobacco Use Types [...] Main Number (answered 24 hours a day) [phone] Cancer Center Scheduling (appointments) [phone] [facility] (for nutritional supplements) [phone] in this encounter Medications at Time of [...]
--- OUTSIDE RECORDS SUMMARY | 2017-02-08 15:21 | XMS REPORT | Encounter Summary ---
Author Author [facility] Organization [facility] Address Unknown Phone Unavailable Care Team Providers Care Ship Construction Teacher Name Role Phone PCP Unavailable Reason for Visit * Reason Comments Appointment Encounter Details Date Type Department Care Team Description 01/05/2017 Telephone [facility] Martha Oliver MD Appointment Cancer Center - Exam [address] [place] [address] [place] [address] [phone] Social History Tobacco Use Types Packs/Day Years [...]
--- OUTSIDE RECORDS SUMMARY | 2017-02-08 15:21 | XMS REPORT | Encounter Summary ---
Author Author [facility] Organization [facility] Address Unknown Phone Unavailable Care Team Providers Care Child And Family Therapist Name Role Phone PCP Unavailable Reason for Referral * Radiology Services Status Reason Specialty Diagnoses / Referred By Referred To Procedures Contact Contact Authorized Radiology Diagnoses Rafael Hemphill Icc Mri Malignant [place] [address] [place] [address] [place] upper-outer [place], [address] quadrant [place] [address] Phone: breast in female, estrogen [phone] receptor Fax: positive (HCC) [phone] P rocedures MRI BREAST BILAT WO/W CONTRAST Encounter Details Date Type Department Care Team Description 01/03/2017 Orders Only [facility] Rafael Hemphill MD Malignant neoplasm of Cancer Center - OP Exam [address] upper-[place] [address] [place] [address] left breast in female, [place], [place] [phone] estrogen receptor [phone] positive (HCC) (Primary [phone] Dx) Social History Tobacco Use Types Packs/Day [...]
--- OUTSIDE RECORDS SUMMARY | 2017-02-08 15:21 | XMS REPORT | Encounter Summary ---
Author Author [facility] Organization [facility] Address Unknown Phone Unavailable Care Team Providers Care Barman Name Role Phone PCP Unavailable Reason for Visit * Reason Comments Appointment Pre-op appt with Dr. Martha Oliver Encounter Details Date Type Department Care Team Description 01/07/2017 Telephone [facility] Martha Oliver MD Appointment (Pre-op appt Cancer Center - [place] Exam [address] Martha Oliver) [address] [place] [address] [place] [address] [phone] Social History Tobacco Use Types Packs/Day Years [...]
--- OUTSIDE RECORDS SUMMARY | 2017-02-08 15:21 | XMS REPORT | Encounter Summary ---
Author Author [facility] Organization [facility] Address Unknown Phone Unavailable Care Team Providers Care Mine Wirer Name Role Phone PCP Unavailable Reason for Visit * Reason Comments Heme/Onc Care Encounter Details Date Type Department Care Team Description 01/14/2017 Office Visit [facility] Irasema Lopez APRN Malignant neoplasm of Cancer Center - OP Exam [address] upper-[place] [address] [place] [address] left breast in female, [place], [place] [phone] estrogen receptor [phone] positive (HCC) (Primary [phone] Dx) Social History Tobacco Use Types Packs/Day [...] mammogram and ultrasound performed at [facility] in [place] showed an approximately 4 cm left breast [...] invasive ductal carcinoma, grade 2, ER 98%, MA 89%, HER-2 0+ Ki-67 37%. 5. CT [...]
--- OUTSIDE RECORDS SUMMARY | 2017-02-08 15:21 | XMS REPORT | Encounter Summary ---
Author Author [facility] Organization [facility] Address Unknown Phone Unavailable Care Team Providers Care Special Effects Makeup Artist Name Role Phone PCP Unavailable Encounter Details Date Type Department Care Team Description 01/14/2017 Hospital [facility] Irasema Lopez APRN Encounter Cancer Center - OP Lab [address] [place] [address] [place] [address] [phone] Social History Tobacco Use Types Packs/Day Years [...] Performing Laboratory Blood [facility] [address] [place] [address] * CBC AND DIFF (01/14/2017 10:40 AM) [...] 7.0 K/UL Manual Specimen Performing Laboratory Blood [facility] [address] [address] in this encounter Visit Diagnoses Diagnosis Malignant neoplasm of upper-outer quadrant of left breast in female, estrogen receptor positive (HCC) in this encounter
--- OUTSIDE RECORDS SUMMARY | 2017-02-08 15:22 | XMS REPORT | Encounter Summary ---
Author Author [facility] Organization [facility] Address Unknown Phone Unavailable Care Team Providers Care Wrapper Off Name Role Phone PCP Unavailable Encounter Details Date Type Department Care Team Description 12/10/2016 Hospital [facility] Irasema Lopez APRN Encounter Cancer Center - OP Lab [address] [place] [address] [place] [address] [place] [address] [phone] Social History Tobacco Use Types Packs/Day Years [...] Specimen Performing Laboratory Blood MAIN LAB [address] [place] [address] * CBC AND DIFF (12/10/2016 10:33 AM) [...] Laboratory Blood [facility] [address] [address] in this encounter Visit Diagnoses Diagnosis Malignant neoplasm of upper-outer quadrant of left female breast (HCC) Malignant neoplasm of upper-outer quadrant of female breast in this encounter
--- OUTSIDE RECORDS SUMMARY | 2017-02-08 15:22 | XMS REPORT | Encounter Summary ---
Author Author [facility] Organization [facility] Address Unknown Phone Unavailable Care Team Providers Care Car Parker Name Role Phone PCP Unavailable Reason for Visit * Treatment (Routine) Status Reason Specialty Diagnoses / Referred By Referred To Procedures Contact Contact Authorized Hematology and Diagnoses Rafael Hemphill Marc S, Oncology [place] [address] [facility], [place], [place] [address] female breast Phone: Phone: (HCC) [phone] DOXOrubicin Fax: (ADRIAMYCIN) - [phone] J9000; Cyclophosphamide (CYTOXAN) - J9070; Pegfilgrastim (NEULASTA) J2505; Aloxi-J2469;Emen d-J1453 P endy AC NEULASTA Encounter Details Date Type Department Care Team Description 12/20/2016 Hospital [facility]ras[facility] [place] [address] [place] [address] [phone] [place] [address] Social History Tobacco Use Types [...] Main Number (answered 24 hours a day) [phone] Cancer Center Scheduling (appointments) [phone] OR 0700 [facility] (for nutritional supplements) [phone] in this encounter Medications at Time of [...]
--- OUTSIDE RECORDS SUMMARY | 2017-02-08 15:22 | XMS REPORT | Encounter Summary ---
Author Author [facility] Organization [facility] Address Unknown Phone Unavailable Care Team Providers Care Mill Platform Supervisor Name Role Phone PCP Unavailable Reason for Visit * Reason Comments Heme/Onc Care Encounter Details Date Type Department Care Team Description 12/17/2016 Office Visit [facility] Irasema Lopez APRN Malignant neoplasm of Cancer Center - OP Exam [address] [place] [address] [place] [address] left breast in female, [place], [place] [phone] estrogen receptor [phone] positive (HCC) (Primary [phone] Dx) Social History Tobacco Use Types Packs/Day [...] Bilateral diagnostic mammogram and ultrasound performed at [facility] in [place] showed an approximately 4 cm left breast [...] invasive ductal carcinoma, grade 2, ER 98%, NE 89%, HER-2 0+ Ki-67 37%. 5. CT [...]
--- OUTSIDE RECORDS SUMMARY | 2017-02-08 15:22 | XMS REPORT | Encounter Summary ---
Author Author [facility] Organization [facility] Address Unknown Phone Unavailable Care Team Providers Care Correctional Corporal Name Role Phone PCP Unavailable Encounter Details Date Type Department Care Team Description 12/09/2016 Orders Only [facility] Rafael Hemphill MD Cancer Center - OP Exam [address] [place] [address] [phone] [address] [phone] Social History Tobacco Use Types Packs/Day Years [...]
--- OUTSIDE RECORDS SUMMARY | 2017-02-08 15:22 | XMS REPORT | Encounter Summary ---
Author Author [facility] Organization [facility] Address Unknown Phone Unavailable Care Team Providers Care Cyanide Pot Hardener Name Role Phone PCP Unavailable Reason for Visit * Reason Comments Heme/Onc Care * Treatment (Routine) Status Reason Specialty Diagnoses / Referred By Referred To Procedures Contact Contact Closed Hematology and Diagnoses Rafael Hemphill Marc S, Oncology Malignant S[place] [address] upper-outer [place], [place] [address] female breast Phone: Phone: (HCC) [phone] PACLitaxel Fax: (TAXOL) - [id number] P rocedures TAXOL Encounter Details Date Type Department Care Team Description 12/10/2016 [facility] Irasema Lopez APR[place] [address] [place] [address] [address] [place] [address] [place] [address] Social History Tobacco Use Types [...] Main Number (answered 24 hours a day) [phone] Cancer Center Scheduling (appointments) [phone] OR 3256 [facility] (for nutritional supplements) [phone] in this encounter Medications at Time of [...]
--- OUTSIDE RECORDS SUMMARY | 2017-02-08 15:22 | XMS REPORT | Encounter Summary ---
Author Author [facility] Organization [facility] Address Unknown Phone Unavailable Care Team Providers Care Sailing Instructor Name Role Phone PCP Unavailable Encounter Details Date Type Department Care Team Description 12/24/2016 Hospital [facility] Irasema Lopez APRN Encounter Cancer Center - [address] [place] [address] [place] [address] Social History Tobacco Use Types [...] Main Number (answered 24 hours a day) [phone] Cancer Center Scheduling (appointments) [phone] OR 1407 [facility] (for nutritional supplements) [phone] in this encounter Medications at Time of [...]
--- OUTSIDE RECORDS SUMMARY | 2017-02-08 15:22 | XMS REPORT | Encounter Summary ---
Author Author [facility] Organization [facility] Address Unknown Phone Unavailable Care Team Providers Care Diesel Fitter Mechanic Name Role Phone PCP Unavailable Reason for Visit * Treatment (Routine) Status Reason Specialty Diagnoses / Referred By Referred To Procedures Contact Contact Authorized Hematology and Diagnoses Rafael Hemphill Marc S, Oncology [place] [address] [facility], [place], [place] [address] female breast Phone: Phone: ([facility]) [phone] DOXOrubicin Fax: (ADRIAMYCIN) - [phone] J9000; Cyclophosphamide (CYTOXAN) - J9070; Pegfilgrastim (NEULASTA) J2505; Aloxi-J2469;Emen d-J1453 P rocedsriram AC NEULASTA Encounter Details Date Type Department Care Team Description 12/17/2016 Hospital [facility] Irasema [place] [address] [place] [address] [phone] [place] [address] Social History Tobacco Use Types [...] Main Number (answered 24 hours a day) [phone] Cancer Center Scheduling (appointments) [phone] OR 3574 [facility] (for nutritional supplements) [phone] in this encounter Medications at Time of [...]
--- OUTSIDE RECORDS SUMMARY | 2017-02-08 15:22 | XMS REPORT | Encounter Summary ---
Author Author [facility] Organization [facility] Address Unknown Phone Unavailable Care Team Providers Care Zinc Plate Grainer Name Role Phone PCP Unavailable Encounter Details Date Type Department Care Team Description 12/31/2016 Hospital [facility] Rafael Hemphill MD Encounter Cancer Center - OP Lab [address] [place] [address] [phone] Social History Tobacco Use Types Packs/Day Years [...] Performing Laboratory Blood [facility] MAIN [facility] [address] [place] [address] * CBC AND DIFF (12/31/2016 10:11 AM) [...] 7.0 K/UL Manual Specimen Performing Laboratory Blood [facility] [address] [address] in this encounter Visit Diagnoses Diagnosis Malignant neoplasm of upper-outer quadrant of left breast in female, estrogen receptor positive (HCC) in this encounter
--- OUTSIDE RECORDS SUMMARY | 2017-02-08 15:22 | XMS REPORT | Encounter Summary ---
Author Author [facility] Organization [facility] Address Unknown Phone Unavailable Care Team Providers Care Asset Management Coordinator Name Role Phone PCP Unavailable Encounter Details Date Type Department Care Team Description 12/24/2016 Hospital [facility] Shan Lopez APRN Encounter Cancer Center - OP Lab [address] [place] [address] [place] [address] [phone] Social History Tobacco Use Types Packs/Day Years [...] - 0.20 K/UL Specimen Performing Laboratory Blood [facility] [address] [address] in this encounter Visit Diagnoses Diagnosis Malignant neoplasm of upper-outer quadrant of left breast in female, estrogen receptor positive (HCC) in this encounter
--- OUTSIDE RECORDS SUMMARY | 2017-02-08 15:22 | XMS REPORT | Encounter Summary ---
Author Author [facility] Organization [facility] Address Unknown Phone Unavailable Care Team Providers Care Vision Teacher Name Role Phone PCP Unavailable Reason for Visit * Reason Comments Heme/Onc Care Encounter Details Date Type Department Care Team Description 12/24/2016 Office Visit [facility] Shan Lopez APRN Malignant neoplasm of Cancer Center - OP Exam [address] [place] [address] [place] [address] left breast in female, [place] [phone] estrogen receptor [phone] positive (HCC) (Primary [phone] Dx) Social History Tobacco Use Types Packs/Day [...] Bilateral diagnostic mammogram and ultrasound performed at [facility] in [place] showed an approximately 4 cm left breast [...] invasive ductal carcinoma, grade 2, ER 98%, MS 89%, HER-2 0+ Ki-67 37%. 5. CT [...] K/UL Specimen Performing Laboratory Blood [facility] [address] [address] in this encounter Visit Diagnoses Diagnosis Malignant neoplasm of upper-outer quadrant of left breast in female, estrogen receptor positive (HCC) - Primary in this encounter
--- OUTSIDE RECORDS SUMMARY | 2017-02-08 15:23 | XMS REPORT | Encounter Summary ---
Author Author [facility] Organization [facility] Address Unknown Phone Unavailable Care Team Providers Care Cisco Administrator Name Role Phone PCP Unavailable Encounter Details Date Type Department Care Team Description 11/26/2016 Hospital The [facility] Irasema Lopez APRN Encounter Cancer Center - OP Lab [address] [place] [address] [place] [address] [phone] Social History Tobacco Use Types Packs/Day Years [...] Specimen Performing Laboratory Blood MAIN LAB [address] [place] [address] * CBC AND DIFF (11/26/2016 10:48 AM) [...] Laboratory Blood [facility] [address] [address] in this encounter Visit Diagnoses Diagnosis Malignant neoplasm of upper-outer quadrant of left female breast (HCC) Malignant neoplasm of upper-outer quadrant of female breast in this encounter
--- OUTSIDE RECORDS SUMMARY | 2017-02-08 15:23 | XMS REPORT | Encounter Summary ---
Author Author [facility] Organization [facility] Address Unknown Phone Unavailable Care Team Providers Care Teacher Hearing Impaired Name Role Phone PCP Unavailable Reason for Visit * Reason Comments Heme/Onc Care Encounter Details Date Type Department Care Team Description 11/19/2016 Office Visit [facility] Rafael Hemphill MD Malignant neoplasm of Cancer Center - OP Exam [address] [place] [address] [place] [address] left female breast (HCC) [place], [place] [phone] (Primary Dx) [address] [phone] Social History Tobacco Use Types Packs/Day Years [...] Bilateral diagnostic mammogram and ultrasound performed at [facility] in [place] showed an approximately 4 cm left breast [...] invasive ductal carcinoma, grade 2, ER 98%, LA 89%, HER-2 0+ Ki-67 37%. 5. CT [...] mastectomy down the line. 7. RTC with LINING FOLDER in 2 weeks and 4 weeks per [...]
--- OUTSIDE RECORDS SUMMARY | 2017-02-08 15:23 | XMS REPORT | Encounter Summary ---
Author Author [facility] Organization [facility] Address Unknown Phone Unavailable Care Team Providers Care Deputy Clerk Name Role Phone PCP Unavailable Encounter Details Date Type Department Care Team Description 11/19/2016 Hospital [facility] Rafael Hemphill MD Encounter Cancer Center - OP Lab [address] [place], [place] [address] [phone] Social History Tobacco Use Types Packs/Day Years [...] Specimen Performing Laboratory Blood MAIN LAB [address] [place] [address] * CBC AND DIFF (11/19/2016 8:45 AM) [...] Performing Laboratory Blood [facility] [address] [address] in this encounter Visit Diagnoses Diagnosis Malignant neoplasm of upper-outer quadrant of left female breast (HCC) Malignant neoplasm of upper-outer quadrant of female breast in this encounter
--- OUTSIDE RECORDS SUMMARY | 2017-02-08 15:23 | XMS REPORT | Encounter Summary ---
Author Author [facility] Organization [facility] Address Unknown Phone Unavailable Care Team Providers Care State Farm Agent Name Role Phone PCP Unavailable Encounter Details Date Type Department Care Team Description 11/19/2016 Orders Only [facility] Rafael Hemphill MD Cancer Center - OP Exam [address] [place] [address] [phone] [address] [phone] Social History Tobacco Use Types Packs/Day Years [...]
--- OUTSIDE RECORDS SUMMARY | 2017-02-08 15:23 | XMS REPORT | Encounter Summary ---
Author Author [facility] Organization [facility] Address Unknown Phone Unavailable Care Team Providers Care Lead Pourer Name Role Phone PCP Unavailable Reason for Visit * Reason Comments Heme/Onc Care * Treatment (Routine) Status Reason Specialty Diagnoses / Referred By Referred To Procedures Contact Contact Closed Hematology and Diagnoses Rafael Hemphill Marc S, Oncology Malignant S, [place] [address] upper-outer [place], [place] [address] female breast Phone: Phone: (HCC) [phone] PACLitaxel Fax: (TAXOL) - [id number] P rocedures TAXOL Encounter Details Date Type Department Care Team Description 11/26/2016 Hospital [facility] Irasema [place] [address] [place] [address] [address] [place] [address] [place] [address] Social History Tobacco Use Types [...] Main Number (answered 24 hours a day) [phone] Cancer Center Scheduling (appointments) [phone] OR 9751 [facility] (for nutritional supplements) [phone] in this encounter Medications at Time of [...]
--- OUTSIDE RECORDS SUMMARY | 2017-02-08 15:23 | XMS REPORT | Encounter Summary ---
Author Author [facility] Organization [facility] Address Unknown Phone Unavailable Care Team Providers Care Revenue Liaison Name Role Phone PCP Unavailable Encounter Details Date Type Department Care Team Description 12/03/2016 Hospital [facility] Tatiana Valdez APRN Encounter Cancer Center - OP Lab [address] [place] [address] [place] [address] [phone] Irasema Florez APRN [address] [place] [address] [phone] Social History Tobacco Use Types Packs/Day Years [...] Performing Laboratory Blood [facility]IN [facility] [address] [place] [address] * CBC AND DIFF (12/03/2016 10:37 AM) [...] - 0.20 K/UL Specimen Performing Laboratory Blood [facility] [address] [address] in this encounter Visit Diagnoses Diagnosis Malignant neoplasm of upper-outer quadrant of left female breast (HCC) Malignant neoplasm of upper-outer quadrant of female breast in this encounter
--- OUTSIDE RECORDS SUMMARY | 2017-02-08 15:23 | XMS REPORT | Encounter Summary ---
Author Author [facility] Organization [facility] Address Unknown Phone Unavailable Care Team Providers Care Card Cutter Helper Name Role Phone PCP Unavailable Reason for Visit * Reason Comments Heme/Onc Care Encounter Details Date Type Department Care Team Description 12/03/2016 Office Visit [facility] Irasema Lopez APRN Malignant neoplasm of Cancer Center - OP Exam [address] [place] [address] [place] [address] left female breast (HCC) [place], [place] [phone] (Primary Dx) [address] [phone] Social History Tobacco Use Types Packs/Day Years [...] Bilateral diagnostic mammogram and ultrasound performed at [facility] in [place] showed an approximately 4 cm left breast [...] clearly smaller. 2. Continue weekly Taxol with [id number]=712/03/2016. 3. Dexamethasone 4mg PO day 1. 4. [...]
--- OUTSIDE RECORDS SUMMARY | 2017-02-08 15:23 | XMS REPORT | Encounter Summary ---
Author Author [facility] Organization [facility] Address Unknown Phone Unavailable Care Team Providers Care Horseradish Grinder Name Role Phone PCP Unavailable Reason for Visit * Treatment (Routine) Status Reason Specialty Diagnoses / Referred By Referred To Procedures Contact Contact Closed Hematology and Diagnoses Rafael Hemphill Marc S, Oncology Malignant S, [place] [address] [facility] [place] [address] female breast Phone: Phone: (HCC) [phone] PACLitaxel Fax: (TAXOL) - [id number] P rocedures TAXOL Encounter Details Date Type Department Care Team Description 11/19/2016 [facility] Rafael Hem[place]ill [place] [address] [place] [address] [phone] [place] [address] Social History Tobacco Use Types [...] Main Number (answered 24 hours a day) [phone] Cancer Center Scheduling (appointments) [phone] OR 4434 [facility] (for nutritional supplements) [phone] in this encounter Medications at Time of [...]
--- OUTSIDE RECORDS SUMMARY | 2017-02-08 15:23 | XMS REPORT | Encounter Summary ---
Author Author [facility] Organization [facility] Address Unknown Phone Unavailable Care Team Providers Care Podiatrist Orthopedic Name Role Phone PCP Unavailable Reason for Visit * Reason Comments Heme/Onc Care * Treatment (Routine) Status Reason Specialty Diagnoses / Referred By Referred To Procedures Contact Contact Closed Hematology and Diagnoses Rafael Hemphill Marc S, Oncology Malignant S[place] [address] upper-[place], [place] [address] female breast Phone: Phone: (HCC) [phone] PACLitaxel Fax: (TAXOL) - [id number] P rocedures TAXOL Encounter Details Date Type Department Care Team Description 12/03/2016 [facility] Irasema [place] APRN [place] [address] [place] [address] [address] [place] [address] [place] [address] Social History Tobacco Use Types [...] Main Number (answered 24 hours a day) [phone] Cancer Center Scheduling (appointments) [phone] OR 5941 [facility] (for nutritional supplements) [phone] in this encounter Medications at Time of [...]
--- OUTSIDE RECORDS SUMMARY | 2017-02-08 15:24 | XMS REPORT | Encounter Summary ---
Author Author [facility] Organization [facility] Address Unknown Phone Unavailable Care Team Providers Care Industrial Electrician Journeyman Name Role Phone PCP Unavailable Reason for Visit * Reason Comments Chemotherapy * Treatment (Routine) Status Reason Specialty Diagnoses / Referred By Referred To Procedures Contact Contact Closed Hematology and Diagnoses Rafael Hemphill Marc S, Oncology Malignant S[place] [address] [place] [address] female breast Phone: Phone: (HCC) [phone] PACLitaxel Fax: (TAXOL) - [id number] P rocedures TAXOL Encounter Details Date Type Department Care Team Description 11/12/2016 [facility] Rafael Hem[place]ill [place] [address] [place] [address] [address] [place] [address] [place] [address] Social History Tobacco Use Types [...] Main Number (answered 24 hours a day) [phone] Cancer Center Scheduling (appointments) [phone] [facility] (for nutritional supplements) [phone] in this encounter Medications at Time of [...]
--- OUTSIDE RECORDS SUMMARY | 2017-02-08 15:24 | XMS REPORT | Encounter Summary ---
Author Author [facility] Organization [facility] Address Unknown Phone Unavailable Care Team Providers Care Atmospheric Physicist Name Role Phone PCP Unavailable Encounter Details Date Type Department Care Team Description 11/12/2016 Hospital [facility] Rafael Hemphill MD Encounter Cancer Center - OP Lab [address] [place], [place] [address] [phone] Social History Tobacco Use Types Packs/Day Years [...] Specimen Performing Laboratory Blood MAIN LAB [address] [place] [address] * CBC AND DIFF (11/12/2016 8:34 AM) [...] K/UL Specimen Performing Laboratory Blood 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
--- OUTSIDE RECORDS SUMMARY | 2017-02-08 15:24 | XMS REPORT | Continuity of Care Document ---
Author Author [facility] Organization [facility] Address Unknown Phone Unavailable Allergies Medications Problems Procedures Results Encounters ACCT No. Visit Date/Time Discharge Status Pt. Type Provider Facility Loc./Unit Complaint [id number] 03/30/2014 02:43:00 2013 04:44:00 DIS Emergency [id number] 11/11/2012 12:15:00 2012 23:59:59 CLS Outpatient
[2017-02-08] MEDS ORDERED: NS IV 500 ML 500 ML IV SCH (16:45)
[2017-02-08] MEDS ORDERED: CATHETER FLUSH 10 ML SYR IV PRN (16:45)
[2017-02-08] MEDS: D5 1/2 NS 1000 ML IV SOLUTION 1,000 ML IV SCH (17:38)
[2017-02-08] MEDS: LEVOFLOXACIN 750 MG/D5W 150 ML (PRE-MIX) IV SCH (17:38)
[2017-02-08] MEDS: ACETAMINOPHEN 500 MG TAB (TYLENOL) PO PRN ×2 (18:02→23:25)
[2017-02-08] MEDS: TBO-FILGRASTIM 300 MCG/0.5 ML (GRANIX) SQ SCH (18:02)
[2017-02-08] MEDS ORDERED: CHLORHEXIDINE 0.12% SOLN 15 ML (PERIDEX) UDC PO SCH (21:00)
[2017-02-08 21:57] LABS: BILIRUBIN,URINE NEGATIVE (NEGATIVE); KETONES,URINE 4+ (NEGATIVE); LEUKOCYTE ESTERASE ,URINE NEGATIVE (NEGATIVE); NITRITE,URINE NEGATIVE (NEGATIVE); PH,URINE 6 (5-9); PROTEIN,URINE 1+ (NEGATIVE); UROBILINOGEN,URINE NORMAL (NORMAL)
[2017-02-08 22:09] LABS: WBC,URINE 0-2 /HPF
[2017-02-09] VITALS (19 sets, daily range): BP systolic 103–129; BP diastolic 52–90
[2017-02-09] MEDS: D5 1/2 NS 1000 ML IV SOLUTION 1,000 ML IV SCH ×4 (04:23→22:07)
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
[2017-02-09 04:54] LABS: BASOPHILS % (AUTO) 4 % (0-10); EOSINOPHILS % (AUTO) 0 % (0-10); LYMPHOCYTES # (AUTO) 0.1 X 10^3 (1.0-4.0); LYMPHOCYTES % (AUTO) 15 % (12-44); MEAN CORPUSCULAR HEMOGLOBIN 31 PG (25-34); MEAN CORPUSCULAR HGB CONC 35 G/DL (32-36); MEAN CORPUSCULAR VOLUME 90 FL (80-99); MEAN PLATELET VOLUME 11.8 FL (7.4-10.4); MONOCYTES # (AUTO) 0.1 X 10^3 (0.0-1.0); MONOCYTES % (AUTO) 23 % (0-12); NEUTROPHILS # (AUTO) 0.3 X 10^3 (1.8-7.8); NEUTROPHILS % (AUTO) 57 % (42-75); PLATELET COUNT 42 10^3/uL (130-400); RED BLOOD COUNT 2.94 10^6/uL (4.35-5.85); RED CELL DISTRIBUTION WIDTH 14.5 % (10.0-14.5)
[2017-02-09 05:02] LABS: WHITE BLOOD COUNT 0.5 10^3/uL (4.3-11.0)
[2017-02-09 05:21] LABS: ALANINE AMINOTRANSFERASE 6 U/L (0-55); ALBUMIN 2.9 GM/DL (3.2-4.5); ANION GAP 8 MMOL/L (5-14); ASPARTATE AMINO TRANSFERASE 8 U/L (5-34); BILIRUBIN,TOTAL 0.8 MG/DL (0.1-1.0); BLOOD UREA NITROGEN 5 MG/DL (7-18); BUN/CREATININE RATIO 10; CALCIUM 8.3 MG/DL (8.5-10.1); CARBON DIOXIDE 24 MMOL/L (21-32); CHLORIDE 107 MMOL/L (98-107); CREATININE SERUM 0.51 MG/DL (0.60-1.30); GFR ESTIMATED > 60; GLUCOSE 118 MG/DL (70-105); SODIUM 139 MMOL/L (135-145)
[2017-02-09] MEDS ORDERED: POTASSIUM CL 10MEQ/50ML IVPB 50 ML IV SCH (05:45)
[2017-02-09] MEDS: MAGNESIUM 1 GM/100 ML IVPB 100 ML IV SCH (06:04)
[2017-02-09] MEDS: POTASSIUM CL 10MEQ/50ML IVPB 50 ML IV SCH (06:04)
[2017-02-09] MEDS: KCL 20 MEQ TAB (K-DUR) PO SCH (06:04)
[2017-02-09] MEDS ORDERED: KCL 20 MEQ TAB (K-DUR) PO ONE ×3 (06:30→10:30)
[2017-02-09] MEDS: CEFEPIME 2 GM/NS 50 ML IVPB IV SCH ×2 (08:55)
[2017-02-09] MEDS: TBO-FILGRASTIM 300 MCG/0.5 ML (GRANIX) SQ SCH (08:58)
[2017-02-09] MEDS ORDERED: ACET325T38 PO (10:05)
[2017-02-09] MEDS ORDERED: LORA10TA7 PO (10:05)
[2017-02-09] MEDS ORDERED: HYDR30CR TP (10:08)
--- NOTE | 2017-02-09 10:28 | History & Physical-Hospitalist ---
HPI History of Present Illness: HPI/Chief Complaint CC: Neutropenia with fever, pancytopenia, possible sepsis HPI: This is a 67 yoWF pt who presented to the ER with possible sepsis. Pt recently finished chemotherapy for left breast cancer. WBC 0.1, Hgb up to 9 from 6 after [address] Coleman Review: Nail will be removed and drain the abscess and left to drain and hopefully get better, if not, then will need to be covered for osteo lobster catcher: Left greater toe is extremely inflamed. Pt claims that she stubbed it a few weeks ago and broke part of the nail. Pt then went to get a pedicure. It looks almost like an infected ingrown toenail and it smells but there is no open wound. It is possible that she could have a fungal infection from the pedicure. Patient Interview: Pt states that she is doing well but is worried about her toe. Pt states it is a chemo nail. Pt was informed that Dr. Coleman will see her soon to assess her toe. Pt confirms PCP in [place], [place] at [facility] Physical Exam stable. Lungs sound perfect Pt denies smoking and ETOH use Pt confirms ca dx on 08/02/16, left breast ca. Pt just finished chemo and has not yet had surgery. Pt states that she is familiar with Dr. 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 Ortiz. 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) Alcohol Use: Denies Use Recreational Drug Use: No Smoking Status: Never a Smoker Physical Abuse Screen: No Sexual Abuse: No Recent Foreign Travel: No Contact w/other who traveled: No Recent Hopitalizations: No Recent Infectious Disease Expo: No Immunizations Up To Date Pediatric: No Seasonal Allergies Seasonal Allergies: Yes Surgeries Yes (PORT RIGHT CHEST; LEFT BREAST BIOPSY) Breast (08/02/16 [facility]), Orthopedic Respiratory No Cardiovascular No Neurological No Reproductive System Hx Reproductive Disorders: No Sexually Transmitted Disease: No Genitourinary No Gastrointestinal No Musculoskeletal No Endocrine History of Endocrine Disorders: No HEENT History of HEENT Disorders: No Cancer Yes (left breast) Breast Did You Recieve Any Treatments: Yes Type of Treatment: Chemotherapy Psychosocial History of Psychiatric Problem: No Integumentary History of Skin or Integumenta: No Blood Transfusions History of Blood Disorders: No Family Medical History Family Hx: Patient reports no known family medical history. Review of Systems Constitutional: see HPI, dizziness, fever, weakness EENTM: no symptoms reported Respiratory: cough Cardiovascular: no symptoms reported Gastrointestinal: no symptoms reported Genitourinary: no symptoms reported Musculoskeletal: no symptoms reported Skin: see HPI Psychiatric/Neurological: No Symptoms Reported All Other Systems Reviewed Negative Unless Noted: Yes Physical Exam Physical Exam Vital Signs Vital Sign - Last 12Hours 02/08/17 02/08/17 11:53 16:25 Temp 99.9 Pulse 110 Resp 18 B/P (MAP) 118/86 Pulse Ox 97 O2 Delivery Room Air Capillary Refill : Less Than 3 Seconds General Appearance: No Apparent Distress, WD/WN, Chronically ill, Thin Eyes: Bilateral Eye Normal Inspection, Bilateral Eye PERRL HEENT: PERRL/EOMI, Normal ENT Inspection, Pharynx Normal Neck: Full Range of Motion, Normal Inspection, Non Tender, Supple, Carotid Bruit Respiratory: Chest Non Tender, No Accessory Muscle Use, No Respiratory Distress , Decreased Breath Sounds Cardiovascular: Regular Rate, Rhythm, No Edema, No Gallop, No JVD, No Murmur, Normal Peripheral Pulses Gastrointestinal: Normal Bowel Sounds, No Organomegaly, No Pulsatile Mass, Non Tender, Soft Back: Normal Inspection, No CVA Tenderness, No Vertebral Tenderness Extremity: Normal Capillary Refill, Normal Inspection, Normal Range of Motion, Non Tender, No Calf Tenderness, No Pedal Edema Neurologic/Psychiatric: Alert, Oriented x3, No Motor/Sensory Deficits, Normal Mood/Affect Skin: Normal Color, Warm/Dry, Other (left great toe with erythema and odor and severe onchomycosis great toenail severe) Lymphatic: No Adenopathy Results Results/Procedures Lab Laboratory Tests 02/08/17 11:30 02/08/17 21:05 02/09/17 04:20 Assessment/Plan Admission Diagnosis Assessment: Sepsis with pancytopenia from recent chemotherapy for breast cancer diagnosed August 02, 2016 at [facility] Left great toe abscess with onychomycosis and due to recent pedicure will cover for fungal elements a source of sepsis Severe anemia due to chemotherapy induced source status post 2 units of blood last night uncomplicated Allergic rhinitis Hypokalemia Assessment and Plan Plan: Lamisil cream and Diflucan IV to cover for possible fungal elements causing sepsis Toenail removal per Dr. Coleman w/I&D and culture Monitor labs closely and maintain empirical abx Appreciate Dr Arambula's assistance Clinical Quality Measures DVT/VTE Risk/Contraindication: Risk Factor Score Per Nursin RFS Level Per Nursing on Admit: 2=Moderate KENISHA ORTIZ DO Feb 09, 2017 10:28
[2017-02-09] MEDS: FLUCONAZOLE 100 MG/50 ML 50 ML IV SCH (11:09)
[2017-02-09] MEDS ORDERED: LIDOCAINE PF 1% 2 ML AMP ONE ×2 (12:59→13:04)
--- NOTE | 2017-02-09 15:24 | Progress Note-Standard ---
Standard Progress Note Progress Notes/Assess & Plan Date Seen by Provider: Feb 09, 2017 Time Seen by Provider: 15:00 Progress/Assessment & Plan 67-year-old female with locally advanced left breast cancer who was undergoing chemotherapy at [facility]. Last round of chemotherapy with Adriamycin and Cytoxan regimen on 01/28/2017. Patient admitted to [facility] with the neutropenic fever and significant symptomatic anemia. She received transfusion with 2 units of PRBCs yesterday. She is on broad-spectrum antibiotics with cefepime and Levaquin day #2. Also started on GCSF 300 g subcutaneous daily. No further temperature spikes. Feels better clinically. Eating better. Vital Sign - Last 12Hours Date Time Temp Pulse Resp B/P (MAP) Pulse Ox O2 Delivery O2 Flow Rate FiO2 02/09/17 14:00 98 10 129/90 100 Room Air 02/09/17 08:00 99.1 Physical exam showed elderly female, thin and weak appearing, awake and answering questions appropriately, in no acute distress. HEENT normocephalic, small bruise in the right supraorbital ridge, conjunctivae of right eye injected, oral mucosa moist, single lesion on the lower lip clinically consistent with HSV. Neck supple with no JVD. No cervical or supraclavicular lymphadenopathy palpable. Lungs fairly clear to auscultation without wheezes or rales. Cardiovascular exam was regular in rate and rhythm. No murmurs or gallops heard. Abdomen soft, nontender with no hepatosplenomegaly or other masses palpable. Extremities showed no edema or petechiae. Neurologic examination showed no focal motor deficits. Laboratory Tests 02/08/17 21:05 02/09/17 04:20 A/P: 1. Neutropenic fever, cultures negative so far. Currently on broad-spectrum antibiotics with cefepime and Levaquin day #2. Continue. 2. On G-CSF 300 g subcutaneous daily. Continue until ANC more than 10,000. 3. Symptomatic anemia, status post transfusion with 2 units of PRBCs. Hemoglobin better. Continue to monitor. 4. Locally advanced left breast cancer, status post neoadjuvant chemotherapy with weekly paclitaxel 12 and Adriamycin and Cytoxan regimen 4 with the last chemotherapy on 01/28/2017. 5. Today I contacted Dr. Roby Eaton at the [facility] ([phone] ) and discussed the case with him. He agreed with the current management. 6. 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 I will start her on acyclovir 400 mg by mouth 5 times daily. 7. Increase activity as tolerated and may move to medical floor tomorrow. TOD PAVON Feb 09, 2017 15:23
[2017-02-09] MEDS ORDERED: ARTIFICAL TEARS 0.4 ML UNIT DOSE (REFRESH PLUS) OD PRN (17:45)
[2017-02-09] MEDS: CIPROFLOXACIN 0.3% (CILOXAN) 2.5 ML BTL OD SCH ×2 (17:52→20:40)
[2017-02-09] MEDS: ACYCLOVIR 400 MG TABLET (ZOVIRAX) PO SCH ×2 (17:52→20:39)
--- NOTE | 2017-02-09 17:58 | Consultation ---
History of Present Illness History of Present Illness Patient Consulted On(marina/time) 02/09/17 17:46 Date Seen by Provider: Feb 09, 2017 Time Seen by Provider: 17:47 History of Present Illness Consult requested by Dr. Sam for left infected great toe. Patient is a 67-year-old female with breast cancer just completed chemotherapy and was found to have fever and neutropenia. She was having fever up to 102.7. Patient with an infected left greater toe. 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 Patient began having the to become more tender as well. She states states that it's a moderate pain. She's had a little bit of drainage from the toe but does not see an open wound. Patient at this time is not having any significant difficulties she states. She denies any nausea vomiting fever sweats chills shortness of breath or chest pain. Allergies and Home Medications Allergies Coded Allergies: Sulfa (Sulfonamide Antibiotics) (Unverified Allergy, Intermediate, ) Home Medications Acetaminophen 325 Mg Tablet, 325 MG PO Q4H PRN for PAIN-MILD, (Reported) Hydroquinone Microspheres 30 Gm Crm.er..g., TP BID, (Reported) Loratadine 10 Mg Tablet, 10 MG PO DAILY, (Reported) Past Vlvoica-Lhylml-Hbyoip Hx Patient Social History Alcohol Use: Denies Use Recreational Drug Use: No Smoking Status: Never a Smoker Recent Foreign Travel: No Contact w/Someone Who Travel: No Recent Infectious Disease Expo: No Recent Hopitalizations: No Physical Abuse Screen: No Sexual Abuse: No Immunizations Up To Date PED Vaccines UTD: No Seasonal Allergies Seasonal Allergies: Yes Surgeries History of Surgeries: Yes (PORT RIGHT CHEST; LEFT BREAST BIOPSY) Surgeries: Breast (08/02/16 [facility]), Orthopedic Respiratory History of Respiratory Disorde: No Cardiovascular History of Cardiac Disorders: No Neurological History of Neurological Disord: No Reproductive System Hx Reproductive Disorders: No Sexually Transmitted Disease: No Genitourinary History of Genitourinary Disor: No Gastrointestinal History of Gastrointestinal Di: No Musculoskeletal History of Musculoskeletal Dis: No Endocrine History of Endocrine Disorders: No HEENT History of HEENT Disorders: No Cancer History of Cancer: Yes (left breast) Cancer: Breast Psychosocial History of Psychiatric Problem: No Integumentary History of Skin or Integumenta: No Blood Transfusions History of Blood Disorders: No Family Medical History Significant Family History: No Pertinent Family Hx Family Medial History: Patient reports no known family medical history. Review of Systems-General Constitutional: see HPI EENTM: no symptoms reported Respiratory: no symptoms reported Cardiovascular: no symptoms reported Gastrointestinal: no symptoms reported Genitourinary: no symptoms reported Musculoskeletal: see HPI Skin: see HPI Psychiatric/Neurological: No Symptoms Reported Physical Exam-General Problems Physical Exam Vital Signs Vital Sign - Last 12Hours 02/08/17 02/08/17 11:53 16:25 Temp 99.9 Pulse 110 Resp 18 B/P (MAP) 118/86 Pulse Ox 97 O2 Delivery Room Air Capillary Refill : Less Than 3 Seconds General Appearance: no apparent distress (laying in bed) HEENT: PERRL/EOMI, normal ENT inspection Neck: supple Respiratory: no respiratory distress, no accessory muscle use Cardiovascular: regular rate, rhythm Gastrointestinal: non tender, soft, no organomegaly Back: no CVA tenderness Extremities: other (patient with tender left great toe. The they'll slightly raised there is purulent material underneath the nail bed with foul smell. There is surrounding erythema) Neurologic/Psychiatric: alert, normal mood/affect, oriented x 3 Skin: other (erythema around left great toe otherwise no other abnormalities noted) Data Review Labs Laboratory Tests 02/08/17 21:05: Hemoglobin 9.3#L, Hematocrit 27L 02/08/17 21:45: Urine Color YELLOW, Urine Clarity SLIGHTLY CLOUDY, Urine pH 6, Urine Specific [place] 1.010L, Urine Protein 1+H, Urine Glucose (UA) NEGATIVE, Urine Ketones 4+ H, Urine Nitrite NEGATIVE, Urine Bilirubin NEGATIVE, Urine Urobilinogen NORMAL, Urine Leukocyte Esterase NEGATIVE, Urine RBC (Auto) 1+H, Urine RBC NONE, Urine WBC 0-2, Urine Crystals NONE, Urine Bacteria NONE, Urine Casts NONE, Urine Mucus SMALLH, Urine Culture Indicated NO 02/09/17 04:20: Hemoglobin 9.2L, Hematocrit 27L, White Blood Count 0.5*L, Red Blood Count 2.94L , Mean Corpuscular Volume 90, Mean Corpuscular Hemoglobin 31, Mean Corpuscular Hemoglobin Concent 35, Red Cell Distribution Width 14.5, Platelet Count 42L, Mean Platelet Volume 11.8H, Neutrophils (%) (Auto) 57, Lymphocytes (%) (Auto) 15 , Monocytes (%) (Auto) 23H, Eosinophils (%) (Auto) 0, Basophils (%) (Auto) 4, Neutrophils # (Auto) 0.3L, Lymphocytes # (Auto) 0.1L, Monocytes # (Auto) 0.1, Eosinophils # (Auto) 0.0, Basophils # (Auto) 0.0, Sodium Level 139, Potassium Level 3.0L, Chloride Level 107, Carbon Dioxide Level 24, Anion Gap 8, Blood Urea Nitrogen 5L, Creatinine 0.51L, Estimat Glomerular Filtration Rate > 60, BUN /Creatinine Ratio 10, Glucose Level 118H, Calcium Level 8.3L, Total Bilirubin 0.8, Aspartate Amino Transf (AST/SGOT) 8, Alanine Aminotransferase (ALT/SGPT) 6 , Alkaline Phosphatase 43, Total Protein 5.0L, Albumin 2.9L 02/09/17 16:00: Potassium Level 3.9 Microbiology 02/08/17 Blood Culture - Preliminary, Resulted No growth Assessment/Plan Assessment/Plan Assessment/Plan Patient with infected left great toe causing her possible sepsis. She with fever and history of breast cancer completing her chemotherapy. Patient was discussed that with the prolonged drainage and erythema that the nail needs to come off because it looks as if the sources underneath the nail and could be from an ingrown toenail. Patient understands risk and benefits of having the now excised with a block at bedside along with incision and drainage. Also understands possibility of further evaluation with imaging and also possible need of further surgical intervention. Patient agrees to removal of the left great toenail under digital block, an incision and drainage. Preop Left great toe abscess Postop same Procedure left great toe digital block, removal left great toenail, incision and drainage Surgeon [place] Anesthesia digital block Estimated blood loss minimal Complications none Indications patient with infected left great toe. She understands risk and benefits of incision drainage and removal of left great toenail and digital block. She wishes to proceed consent was signed. Procedure: Patient was prepped and draped in a sterile fashion a digital block was performed on the left great toe using a total of 4 mL of 1 percent lidocaine this was performed along the lateral and medial aspect of the great toe towards the base. Once anesthetic effect took place a hemostat was used to elevate the nail and purulent material was present culture was obtained. On the medial aspect of the nail this was embedded deeply ingrown and a pocket was there a 15 blade scalpel was used to open this up some more prone material was erupted. The remainder of nail was then removed. No other areas of fluctuance present at this time. The areas wash and dried sterile bandage was applied. The incision is drainage was performed through the skin and subcutaneous tissue with scalpel. Patient tolerated procedure well without complications. Clinical Quality Measures DVT/VTE Risk/Contraindication: Risk Factor Score Per Nursin RFS Level Per Nursing on Admit: 2=Moderate MAGALYS MERINO DO Feb 09, 2017 17:58
[2017-02-09] MEDS: TERBINAFINE 1% CREAM 1 OZ (LamISIL) TUBE TP SCH (20:39)
[2017-02-10] VITALS (19 sets, daily range): BP systolic 100–140; BP diastolic 61–78
[2017-02-10 04:32] LABS: BASOPHILS # (AUTO) 0.1 10^3/uL (0.0-0.1); BASOPHILS % (AUTO) 3 % (0-10); EOSINOPHILS % (AUTO) 0 % (0-10); LYMPHOCYTES # (AUTO) 0.3 X 10^3 (1.0-4.0); LYMPHOCYTES % (AUTO) 10 % (12-44); MEAN CORPUSCULAR HEMOGLOBIN 31 PG (25-34); MEAN CORPUSCULAR HGB CONC 34 G/DL (32-36); MEAN CORPUSCULAR VOLUME 91 FL (80-99); MEAN PLATELET VOLUME 12.5 FL (7.4-10.4); MONOCYTES # (AUTO) 0.3 X 10^3 (0.0-1.0); MONOCYTES % (AUTO) 12 % (0-12); NEUTROPHILS # (AUTO) 2.1 X 10^3 (1.8-7.8); NEUTROPHILS % (AUTO) 76 % (42-75); PLATELET COUNT 52 10^3/uL (130-400); RED BLOOD COUNT 2.98 10^6/uL (4.35-5.85); RED CELL DISTRIBUTION WIDTH 14.7 % (10.0-14.5); WHITE BLOOD COUNT 2.7 10^3/uL (4.3-11.0)
[2017-02-10 04:56] LABS: ANION GAP 9 MMOL/L (5-14); BUN/CREATININE RATIO 4; CALCIUM 8.4 MG/DL (8.5-10.1); CARBON DIOXIDE 21 MMOL/L (21-32); CHLORIDE 109 MMOL/L (98-107); CREATININE SERUM 0.48 MG/DL (0.60-1.30); GFR ESTIMATED > 60; GLUCOSE 123 MG/DL (70-105); POTASSIUM 3.4 MMOL/L (3.6-5.0); SODIUM 139 MMOL/L (135-145)
[2017-02-10 05:15] LABS: BLOOD UREA NITROGEN < 2 MG/DL (7-18)
[2017-02-10] MEDS: KCL 20 MEQ TAB (K-DUR) PO SCH (05:20)
[2017-02-10] MEDS: MAGNESIUM 1 GM/100 ML IVPB 100 ML IV SCH ×3 (05:20→06:56)
[2017-02-10] MEDS: POTASSIUM CL 10MEQ/50ML IVPB 50 ML IV SCH (05:20)
[2017-02-10] MEDS: ACYCLOVIR 400 MG TABLET (ZOVIRAX) PO SCH ×5 (05:48→21:00)
[2017-02-10] MEDS ORDERED: KCL 20 MEQ TAB (K-DUR) PO ONE (07:00)
[2017-02-10] MEDS: FLUCONAZOLE 100 MG/50 ML 50 ML IV SCH (08:59)
[2017-02-10] MEDS: CIPROFLOXACIN 0.3% (CILOXAN) 2.5 ML BTL OD SCH ×4 (08:59→21:14)
[2017-02-10] MEDS: TERBINAFINE 1% CREAM 1 OZ (LamISIL) TUBE TP SCH ×2 (09:00→21:13)
[2017-02-10] MEDS: CEFEPIME 2 GM/NS 50 ML IVPB IV SCH ×2 (09:00)
[2017-02-10] MEDS: D5 1/2 NS 1000 ML IV SOLUTION 1,000 ML IV SCH ×3 (09:01→21:13)
[2017-02-10] MEDS: TBO-FILGRASTIM 300 MCG/0.5 ML (GRANIX) SQ SCH (09:54)
--- NOTE | 2017-02-10 11:40 | Progress Note-Hospitalist ---
Progress Note HPI/CC on Admission CC: Neutropenia with fever, pancytopenia, possible sepsis HPI: This is a 67 yoWF pt who presented to the ER with possible sepsis. Pt recently finished chemotherapy for left breast cancer. WBC 0.1, Hgb up to 9 from 6 after [address] 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 Pt claims that she stubbed it a few weeks ago and broke part of the nail. Pt then went to get a pedicure. It looks almost like an infected ingrown toenail and it smells but there is no open wound. It is possible that she could have a fungal infection from the pedicure. Patient Interview: Pt states that she is doing well but is worried about her toe. Pt states it is a chemo nail. Pt was informed that Dr. Coleman will see her soon to assess her toe. Pt confirms PCP in [place], [place] at [facility] Physical Exam stable. Lungs sound perfect Pt denies smoking and ETOH use Pt confirms ca dx on 08/02/16, left breast ca. Pt just finished chemo and has not yet had surgery. Pt states that she is familiar with Dr. 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 Ortiz. Progress Notes/Assess & Plan Date Seen 02/10/17 Time Seen by Provider: 09:30 Admission Dx/Process Assessment: Sepsis with pancytopenia from recent chemotherapy for breast cancer diagnosed August 02, 2016 at [facility] Left great toe abscess with onychomycosis and due to recent pedicure will cover for fungal elements a source of sepsis Severe anemia due to chemotherapy induced source status post 2 units of blood last night uncomplicated Allergic rhinitis Hypokalemia Diagonsis/Assessment & Plan Chart Review: Dr. Coleman drained left great toe abscess yesterday Micro showed gram negative rods and gram positive cocci Blood culture showed no growth Max fever 100 WBC 2.7 Hgb 9.3 Platelets 52 K+ 3.[address] 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 Pt denies seeing Dr. Arambula today AFVSS, Pleasant, improved, frail, thin RRR, CTAB No edema Assessment: Sepsis with pancytopenia from recent chemotherapy for breast cancer diagnosed August 02, 2016 at [facility] now improved on Granix Left great toe abscess s/p I&D pending culture results with onychomycosis and due to recent pedicure will cover for fungal elements a source of sepsis Severe anemia due to chemotherapy induced source status post 2 units of blood on admit uncomplicated Allergic rhinitis Hypokalemia Plan: Lamisil cream and Diflucan IV to cover for possible fungal elements causing sepsis Toenail removal per Dr. Coleman w/I&D and culture was appreciated Monitor labs closely and maintain empirical abx Appreciate Dr Arambula's assistance Maintain on Acyclovir, Cefepime, and Levaquin Check MRI for osteomyelitis of the great toe Scribed by Amber Garcia under the direct supervision of Dr. Ortiz. KENISHA ORTIZ DO Feb 10, 2017 11:40
--- NOTE | 2017-02-10 14:24 | Diagnostic Imaging Report ---
PROCEDURE: MR imaging left lower extremity without contrast. TECHNIQUE: Multiplanar, multisequence non contrast enhanced MR imaging of the left lower extremity was accomplished. INDICATION: Foot pain. There are no previous studies available for comparison. FINDINGS: By history, the patient has suffered a recent injury to the great toe. On the T2 fat-saturated coronal series, there are vague areas of increased signal within the substance of the head and neck of the first metacarpal. There is also a suggestion of a fine linear area of diminished signal in the head. I suspect these findings are secondary to bone edema from a nondisplaced fracture. There is also some edema/inflammation of the soft tissues in this area and there is degenerative cystic disease involving the head of the first metatarsal as well. There is no clear evidence for osteomyelitis and there is no sign of a soft tissue abscess. No other abnormality is identified. IMPRESSION: 1. The abnormal signal within the head and neck of the first metatarsal does suggest bone edema and there appears to be a nondisplaced fracture in this region. There is also soft tissue edema about the injured first metatarsal. 2. There is no clear evidence for osteomyelitis or for a soft tissue abscess. 3. No other acute abnormality is identified. Dictated by: Dictated on workstation # [id number]
--- NOTE | 2017-02-10 15:10 | Progress Note ---
Subjective Date Seen by Provider: Feb 10, 2017 Time Seen by Provider: 08:00 Subjective/Events-last exam Patient left great toe feeling better. No drainage from the toe. Denies n/v fever sweats chills shortness of breath or chest pain. Objective Exam Vital Signs Date Time Temp Pulse Resp B/P (MAP) Pulse Ox O2 Delivery O2 Flow Rate FiO2 02/10/17 11:00 89 17 128/78 96 Room Air 02/10/17 10:00 87 10 111/72 99 Room Air 02/10/17 09:00 84 13 100/74 98 Room Air 02/10/17 08:00 98.8 02/10/17 08:00 76 15 110/65 98 Room Air 02/10/17 07:00 75 02/10/17 07:00 75 13 118/69 97 Room Air 02/10/17 06:00 87 6 120/78 99 Room Air 02/10/17 05:00 73 13 134/76 98 Room Air 02/10/17 04:00 99.9 82 10 121/71 98 Room Air 02/10/17 04:00 98 Room Air 02/10/17 03:00 82 9 114/74 98 Room Air 02/10/17 02:00 86 13 114/73 99 Room Air 02/10/17 01:00 79 17 111/61 97 Room Air 02/10/17 01:00 80 02/10/17 00:00 103 24 140/78 91 Room Air 02/09/17 23:47 99.7 02/09/17 23:35 97 Room Air 02/09/17 23:00 87 8 122/71 99 Room Air 02/09/17 22:00 90 22 121/68 99 Room Air 02/09/17 21:00 86 15 116/64 98 Room Air 02/09/17 20:00 99 Room Air 02/09/17 20:00 85 123/67 99 Room Air 02/09/17 19:33 80 02/09/17 19:00 100.0 81 17 125/83 99 Room Air 02/09/17 18:00 82 126/79 99 Room Air 02/09/17 17:00 86 124/74 99 Room Air 02/09/17 16:00 99.9 02/09/17 16:00 84 123/78 99 Room Air I & O 02/11/17 07:00 Intake Total 50 ml Output Total 600 ml Balance -550 ml Capillary Refill : Less Than 3 Seconds General Appearance: No Apparent Distress, WD/WN, Chronically ill, Thin HEENT: PERRL/EOMI, Normal ENT Inspection, Pharynx Normal Neck: Full Range of Motion, Normal Inspection, Non Tender, Supple Respiratory: Chest Non Tender, No Accessory Muscle Use, No Respiratory Distress Cardiovascular: Regular Rate, Rhythm, No JVD, Normal Peripheral Pulses Gastrointestinal: non tender, soft, no organomegaly Extremity: Normal Capillary Refill, Normal Inspection, Normal Range of Motion, Non Tender, No Calf Tenderness, No Pedal Edema Neurologic/Psychiatric: Alert, Oriented x3, No Motor/Sensory Deficits, Normal Mood/Affect Skin: Normal Color, Warm/Dry, Other (left great toe with erythema that appears about the same. no area of fluctuance) Lymphatic: No Adenopathy Results Lab Laboratory Tests 02/09/17 16:00: Potassium Level 3.9 02/10/17 04:15: Potassium Level 3.4L, White Blood Count 2.7L, Red Blood Count 2.98L, Hemoglobin 9.3L, Hematocrit 27L, Mean Corpuscular Volume 91, Mean Corpuscular Hemoglobin 31 , Mean Corpuscular Hemoglobin Concent 34, Red Cell Distribution Width 14.7H, Platelet Count 52L, Mean Platelet Volume 12.5H, Neutrophils (%) (Auto) 76H, Lymphocytes (%) (Auto) 10L, Monocytes (%) (Auto) 12, Eosinophils (%) (Auto) 0, Basophils (%) (Auto) 3, Neutrophils # (Auto) 2.1, Lymphocytes # (Auto) 0.3L, Monocytes # (Auto) 0.3, Eosinophils # (Auto) 0.0, Basophils # (Auto) 0.1, Sodium Level 139, Chloride Level 109H, Carbon Dioxide Level 21, Anion Gap 9, Blood Urea Nitrogen < 2L, Creatinine 0.48L, Estimat Glomerular Filtration Rate > 60, BUN/Creatinine Ratio 4, Glucose Level 123H, Calcium Level 8.4L 02/10/17 04:34: Magnesium Level 1.5L 02/10/17 10:53: Lab Scanned Report Transfusion Reaction Form Microbiology 02/08/17 Blood Culture - Preliminary, Resulted No growth 02/10/17 C. difficile GDH Antigen & Toxins - Final, Complete 02/09/17 Gram Stain - Final, Resulted 02/09/17 Wound Culture - Preliminary, Resulted Gram Negative Eris Gram Positive Cocci Assessment/Plan Assessment/Plan Assessment/Plan Patient with infected left great toe causing her possible sepsis. She with fever and history of breast cancer completing her chemotherapy. cellulitis around left great toe about same as yesterday. will get MRI to eval for osteomyelitis otherwise continue with medical management Clinical Quality Measures DVT/VTE Risk/Contraindication: Risk Factor Score Per Nursin RFS Level Per Nursing on Admit: 2=Moderate MAGALYS MERINO DO Feb 10, 2017 15:10
--- NOTE | 2017-02-10 16:10 | Progress Note-Standard ---
Standard Progress Note Progress Notes/Assess & Plan Date Seen by Provider: Feb 10, 2017 Time Seen by Provider: 16:04 Progress/Assessment & Plan 67-year-old female with locally advanced left breast cancer who was undergoing chemotherapy at [facility]. Last round of chemotherapy with Adriamycin and Cytoxan regimen on 01/28/2017. Patient admitted to [facility] with the neutropenic fever and significant symptomatic anemia. She received transfusion with 2 units of PRBCs on admission and is on broad-spectrum antibiotics with cefepime and Levaquin day #3. Also started on GCSF 300 g subcutaneous daily. No further temperature spikes. Feels better clinically. Eating better. status post incision and drainage of great toe. Wound culture is growing a gram-negative eris and gram-positive cocci. No drainage from the wound today. Had diarrhea today morning and C. difficile negative. Vital Sign - Last 12Hours Date Time Temp Pulse Resp B/P (MAP) Pulse Ox O2 Delivery O2 Flow Rate FiO2 02/10/17 13:00 99 02/10/17 11:00 17 128/78 96 Room Air 02/10/17 08:00 98.8 Physical exam showed elderly female, thin appearing, awake and oriented, answering questions appropriately, in no acute distress. HEENT normocephalic, small bruise in the right supraorbital ridge, conjunctivae of right eye injected but better than yesterday, oral mucosa moist, single lesion on the lower lip which is dry. Neck supple with no JVD. No cervical or supraclavicular lymphadenopathy palpable. Lungs fairly clear to auscultation without wheezes or rales. Cardiovascular exam was regular in rate and rhythm. No murmurs or gallops heard. Abdomen soft, nontender with no hepatosplenomegaly or other masses palpable. Extremities showed no edema or petechiae. Neurologic examination showed no focal motor deficits. Laboratory Tests 02/10/17 04:15: White Blood Count 2.7L, Red Blood Count 2.98L, Hemoglobin 9.3L, Hematocrit 27L, Mean Corpuscular Volume 91, Mean Corpuscular Hemoglobin 31, Mean Corpuscular Hemoglobin Concent 34, Red Cell Distribution Width 14.7H, Platelet Count 52L, Mean Platelet Volume 12.5H, Neutrophils (%) (Auto) 76H, Lymphocytes (%) (Auto) 10L, Monocytes (%) (Auto) 12, Eosinophils (%) (Auto) 0, Basophils (%) (Auto) 3, Neutrophils # (Auto) 2.1, Lymphocytes # (Auto) 0.3L, Monocytes # (Auto) 0.3, Eosinophils # (Auto) 0.0, Basophils # (Auto) 0.1, Sodium Level 139, Potassium Level 3.4L, Chloride Level 109H, Carbon Dioxide Level 21, Anion Gap 9, Blood Urea Nitrogen < 2L, Creatinine 0.48L, Estimat Glomerular Filtration Rate > 60, BUN/Creatinine Ratio 4, Glucose Level 123H, Calcium Level 8.4L 02/10/17 04:34: Magnesium Level 1.5L 02/10/17 10:53: Lab Scanned Report Transfusion Reaction Form Microbiology 02/08/17 Blood Culture - Preliminary, Resulted No growth 02/10/17 C. difficile GDH Antigen & Toxins - Final, Complete 02/09/17 Gram Stain - Final, Resulted 02/09/17 Wound Culture - Preliminary, Resulted Gram Negative Eris Gram Positive Cocci A/P: 1. Neutropenic fever, cultures negative so far. Currently on broad-spectrum antibiotics with cefepime and Levaquin day #3. Continue. 2. On G-CSF 300 g subcutaneous daily. Continue until ANC more than 10,000. 3. Symptomatic anemia, status post transfusion with 2 units of PRBCs. Hemoglobin better. Continue to monitor. 4. Locally advanced left breast cancer, status post neoadjuvant chemotherapy with weekly paclitaxel 12 and Adriamycin and Cytoxan regimen 4 with the last chemotherapy on 01/28/2017. 5. ulcer and cellulitis of great toe, status post incision and drainage. Wound culture growing gram-negative rods and gram-positive cocci. Follow ID and sensitivity when available. 6. 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 On acyclovir 400 mg by mouth [address] Carnes covering for me until Tuesday02/14/2017. TOD PAVON Feb 10, 2017 16:10
[2017-02-10] MEDS: LEVOFLOXACIN 750 MG/D5W 150 ML (PRE-MIX) IV SCH (17:58)
[2017-02-11] VITALS (12 sets, daily range): BP systolic 109–126; BP diastolic 59–79
[2017-02-11 03:57] LABS: BASOPHILS # (AUTO) 0.1 10^3/uL (0.0-0.1); BASOPHILS % (AUTO) 1 % (0-10); EOSINOPHILS % (AUTO) 0 % (0-10); LYMPHOCYTES # (AUTO) 0.4 X 10^3 (1.0-4.0); LYMPHOCYTES % (AUTO) 4 % (12-44); MEAN CORPUSCULAR HEMOGLOBIN 31 PG (25-34); MEAN CORPUSCULAR HGB CONC 34 G/DL (32-36); MEAN CORPUSCULAR VOLUME 92 FL (80-99); MEAN PLATELET VOLUME 11.2 FL (7.4-10.4); MONOCYTES # (AUTO) 1.1 X 10^3 (0.0-1.0); MONOCYTES % (AUTO) 12 % (0-12); NEUTROPHILS # (AUTO) 7.5 X 10^3 (1.8-7.8); NEUTROPHILS % (AUTO) 83 % (42-75); PLATELET COUNT 75 10^3/uL (130-400); RED BLOOD COUNT 3.06 10^6/uL (4.35-5.85); RED CELL DISTRIBUTION WIDTH 14.8 % (10.0-14.5); WHITE BLOOD COUNT 9.1 10^3/uL (4.3-11.0)
[2017-02-11 04:20] LABS: ANION GAP 9 MMOL/L (5-14); BLOOD UREA NITROGEN < 2 MG/DL (7-18); BUN/CREATININE RATIO 4; CALCIUM 8.2 MG/DL (8.5-10.1); CARBON DIOXIDE 23 MMOL/L (21-32); CHLORIDE 108 MMOL/L (98-107); CREATININE SERUM 0.51 MG/DL (0.60-1.30); GFR ESTIMATED > 60; GLUCOSE 114 MG/DL (70-105); MAGNESIUM 1.8 MG/DL (1.8-2.4); POTASSIUM 3.7 MMOL/L (3.6-5.0); SODIUM 140 MMOL/L (135-145)
[2017-02-11 04:22] LABS: PHOSPHORUS 0.7 MG/DL (2.3-4.7)
[2017-02-11] MEDS: MAGNESIUM 1 GM/100 ML IVPB 100 ML IV SCH (04:59)
[2017-02-11] MEDS: POTASSIUM CL 10MEQ/50ML IVPB 50 ML IV SCH (04:59)
[2017-02-11] MEDS: KCL 20 MEQ TAB (K-DUR) PO SCH (04:59)
[2017-02-11] MEDS ORDERED: KCL 20 MEQ TAB (K-DUR) PO SCH (06:00)
[2017-02-11] MEDS ORDERED: POTASSIUM CL 10MEQ/50ML IVPB 50 ML IV SCH (06:00)
[2017-02-11] MEDS ORDERED: MAGNESIUM 1 GM/100 ML IVPB 100 ML IV SCH (06:00)
[2017-02-11] MEDS: ACYCLOVIR 400 MG TABLET (ZOVIRAX) PO SCH ×2 (06:21→10:33)
[2017-02-11] MEDS: D5 1/2 NS 1000 ML IV SOLUTION 1,000 ML IV SCH (06:22)
[2017-02-11] MEDS ORDERED: POTASSIUM PHOSPHATE INJ 30 MM in NS (IVPB) 250 ML IV ONE (08:00)
--- NOTE | 2017-02-11 09:10 | Diagnostic Imaging Report ---
INDICATION: Neutropenic fever, sepsis, dyspnea. DISCUSSION: Single portable upright view of the chest was obtained, comparison 02/08/2017. The lungs remain hyperinflated. Stable normal heart size. Right chest wall [id number] is unchanged. Antecedent granulomatous disease is stable, benign. No focal consolidation, pleural fluid, or pneumothorax. IMPRESSION: 1. No acute cardiopulmonary process. Dictated by: Dictated on workstation # [id number]
[2017-02-11] MEDS ORDERED: CHOLESTYRAMINE 4 GM (QUESTRAN LITE, PREVALITE) PKT PO SCH (10:15)
--- NOTE | 2017-02-11 10:28 | Progress Note ---
Subjective Date Seen by Provider: Feb 11, 2017 Time Seen by Provider: 10:25 Subjective/Events-last exam Patient states her left great toe is feeling better. She's not having any pain with it. She states that the redness is gone down little bit. She had an MRI not demonstrating any drainable abscess or osteomyelitis. She denies any nausea vomiting fever sweats chills shortness of breath or chest pain. Objective Exam Vital Signs Date Time Temp Pulse Resp B/P (MAP) Pulse Ox O2 Delivery O2 Flow Rate FiO2 02/11/17 07:00 93 02/11/17 06:00 79 15 113/59 98 Room Air 02/11/17 05:00 80 14 114/62 98 Room Air 02/11/17 04:00 76 19 109/59 100 Room Air 02/11/17 04:00 96 Room Air 02/11/17 03:00 76 9 113/71 100 Room Air 02/11/17 02:00 85 11 119/67 100 Room Air 02/11/17 01:00 86 13 113/73 100 Room Air 02/11/17 01:00 98 02/11/17 00:31 99.2 02/11/17 00:00 98 Room Air 02/10/17 23:00 84 16 116/66 100 Room Air 02/10/17 22:00 113/77 100 Room Air 02/10/17 21:00 90 18 123/67 100 Room Air 02/10/17 20:59 99.9 02/10/17 20:00 101 35 114/69 100 Room Air 02/10/17 20:00 97 Room Air 02/10/17 19:00 99 02/10/17 19:00 106 13 120/74 99 Room Air 02/10/17 18:00 89 17 117/67 100 Room Air 02/10/17 17:00 105 10 123/73 99 Room Air 02/10/17 16:00 86 9 Room Air 02/10/17 16:00 100.5 02/10/17 15:00 90 9 Room Air 02/10/17 14:00 98 13 Room Air 02/10/17 13:00 98 Room Air 02/10/17 13:00 99 02/10/17 12:00 99.2 02/10/17 11:00 89 17 128/78 96 Room Air Capillary Refill : Less Than 3 Seconds General Appearance: No Apparent Distress, WD/WN, Chronically ill, Thin HEENT: PERRL/EOMI, Normal ENT Inspection, Pharynx Normal Neck: Full Range of Motion, Normal Inspection, Non Tender, Supple Respiratory: Chest Non Tender, No Accessory Muscle Use, No Respiratory Distress Cardiovascular: Regular Rate, Rhythm, No JVD, Normal Peripheral Pulses Gastrointestinal: non tender, soft, no organomegaly Extremity: Non Tender, No Calf Tenderness, No Pedal Edema, Other (left great toe less erythema no purulent drainage) Neurologic/Psychiatric: Alert, Oriented x3, No Motor/Sensory Deficits, Normal Mood/Affect Skin: Normal Color, Warm/Dry, Other (left great toe with erythema less. no area of fluctuance) Lymphatic: No Adenopathy Results Lab Laboratory Tests 02/10/17 10:53: Lab Scanned Report Transfusion Reaction Form 02/11/17 03:45: White Blood Count 9.1, Red Blood Count 3.06L, Hemoglobin 9.5L, Hematocrit 28L, Mean Corpuscular Volume 92, Mean Corpuscular Hemoglobin 31, Mean Corpuscular Hemoglobin Concent 34, Red Cell Distribution Width 14.8H, Platelet Count 75L, Mean Platelet Volume 11.2H, Neutrophils (%) (Auto) 83H, Lymphocytes (%) (Auto) 4L, Monocytes (%) (Auto) 12, Eosinophils (%) (Auto) 0, Basophils (%) (Auto) 1, Neutrophils # (Auto) 7.5, Lymphocytes # (Auto) 0.4L, Monocytes # (Auto) 1.1H, Eosinophils # (Auto) 0.0, Basophils # (Auto) 0.1, Sodium Level 140, Potassium Level 3.7, Chloride Level 108H, Carbon Dioxide Level 23, Anion Gap 9, Blood Urea Nitrogen < 2L, Creatinine 0.51L, Estimat Glomerular Filtration Rate > 60, BUN/Creatinine Ratio 4, Glucose Level 114H, Calcium Level 8.2L, Phosphorus Level 0.7*L, Magnesium Level 1.8 Microbiology 02/08/17 Blood Culture - Preliminary, Resulted No growth 02/10/17 C. difficile GDH Antigen & Toxins - Final, Complete 02/09/17 Gram Stain - Final, Resulted 02/09/17 Wound Culture - Preliminary, Resulted Pseudomonas Aeruginosa Proteus Mirabilis Enterococcus Faecalis Assessment/Plan Assessment/Plan Assessment/Plan Patient with infected left great toe causing her possible sepsis. She with fever and history of breast cancer completing her chemotherapy. cellulitis around left great toe less MRI not demonstrating osteomyelitis Medical management Clinical Quality Measures DVT/VTE Risk/Contraindication: Risk Factor Score Per Nursin RFS Level Per Nursing on Admit: 2=Moderate MAGALYS MERINO DO Feb 11, 2017 10:28
[2017-02-11] MEDS: CEFEPIME 2 GM/NS 50 ML IVPB IV SCH ×2 (10:32)
[2017-02-11] MEDS: TERBINAFINE 1% CREAM 1 OZ (LamISIL) TUBE TP SCH (10:33)
[2017-02-11] MEDS: CIPROFLOXACIN 0.3% (CILOXAN) 2.5 ML BTL OD SCH (10:33)
[2017-02-11] MEDS: FLUCONAZOLE 100 MG/50 ML 50 ML IV SCH (10:33)
[2017-02-11] MEDS: TBO-FILGRASTIM 300 MCG/0.5 ML (GRANIX) SQ SCH (10:33)
[2017-02-11] MEDS ORDERED: CHOL4PAC3 PO (11:16)
[2017-02-11] MEDS ORDERED: CIPR500T4 PO (11:16)
[2017-02-11] MEDS ORDERED: AMOX500C2 PO (11:16)
[2017-02-11] MEDS ORDERED: ACID1TAB5 PO (11:16)
[2017-02-11] MEDS ORDERED: CIPR2.5D2 OD (11:16)
[2017-02-11] MEDS ORDERED: ACYC400T PO (11:16)
[2017-02-11] MEDS ORDERED: FLUC100T PO (11:16)
--- NOTE | 2017-02-11 11:32 | Discharge Summary-Hospitalist ---
Diagnosis/Chief Complaint Date of Admission Feb 08, 2017 at 15:14 Date of Discharge Discharge Date: Feb 11, 2017 Admission Diagnosis Assessment: Sepsis with pancytopenia from recent chemotherapy for breast cancer diagnosed August 02, 2016 at [facility] Left great toe abscess with onychomycosis and due to recent pedicure will cover for fungal elements a source of sepsis Severe anemia due to chemotherapy induced source status post 2 units of blood last night uncomplicated Allergic rhinitis Hypokalemia Discharge Diagnosis AFVSS, Pleasant, improved, frail, thin RRR, CTAB No edema Assessment: Sepsis with pancytopenia from recent chemotherapy for breast cancer diagnosed August 02, 2016 at [facility] now improved on Granix Left great toe abscess s/p I&D pending culture results with onychomycosis and due to recent pedicure will cover for fungal elements a source of sepsis Severe anemia due to chemotherapy induced source status post 2 units of blood on admit uncomplicated Allergic rhinitis Hypokalemia Plan: Lamisil cream and Diflucan IV to cover for possible fungal elements causing sepsis Toenail removal per Dr. Coleman w/I&D and culture was appreciated Monitor labs closely and maintain empirical abx Appreciate Dr Arambula's assistance Maintain on Acyclovir, FQ, Diflucan and Amoxil at [place] MRI negative for osteomyelitis of the great toe Scribed by Amber Garcia under the direct supervision of Dr. Ortiz. Notes from 02/11/17 Dr. Coleman Review: Toe was assessed this am and looks better. 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 Arambula okay with move to floor MRI showed no osteo Pt is concerned about diarrhea. C. diff is negative Pt is still concerned about her eyes. Still on Levaquin and Cefepime Dr. Gustafson is okay with [place] Patient Interview: Dr. Gustafson was conversing with pt prior to interview Pt confirms [facility] as pharmacy BM meds discussed and pt is appreciative of this. Plan: Questran and Imodium Contact Dr. Underwood's office for consult on severe conjunctivitis Follow up with Dr. Coleman PO abx to [facility] Scribed by Amber Garcia under the direct supervision of Dr. Ortiz. Discharge Summary Discharge Physical Examination Allergies: Coded Allergies: Sulfa (Sulfonamide Antibiotics) (Unverified Allergy, Intermediate, ) Vitals & I&Os Vital Signs Date Time Temp Pulse Resp B/P (MAP) Pulse Ox O2 Delivery O2 Flow Rate FiO2 02/11/17 07:00 93 02/11/17 06:00 15 113/59 98 Room Air 02/11/17 00:31 99.2 Hospital Course Hospital course: Patient had a standard hospital course after she was admitted for fever and pancytopenia with neutropenia after breast cancer chemotherapy completed at [facility]. She was found to have left great toe abscess that required drainage by Dr. Coleman and antibiotics were selected based on sensitivity panel. Oncology facilitated treatment for neutropenia which recovered well at day of discharge. She was still having green discharge from her eyes and very irritated so I doctor appointment was arranged for 1 p.m. on day of discharge to go to the clinic for an evaluation. Overall she improved greatly antibiotics were selected and sent to pharmacy with close follow-up with Dr. Coleman and primary care provider. Labs (last 24 hrs) Laboratory Tests 02/11/17 03:45: White Blood Count 9.1, Red Blood Count 3.06L, Hemoglobin 9.5L, Hematocrit 28L, Mean Corpuscular Volume 92, Mean Corpuscular Hemoglobin 31, Mean Corpuscular Hemoglobin Concent 34, Red Cell Distribution Width 14.8H, Platelet Count 75L, Mean Platelet Volume 11.2H, Neutrophils (%) (Auto) 83H, Lymphocytes (%) (Auto) 4L, Monocytes (%) (Auto) 12, Eosinophils (%) (Auto) 0, Basophils (%) (Auto) 1, Neutrophils # (Auto) 7.5, Lymphocytes # (Auto) 0.4L, Monocytes # (Auto) 1.1H, Eosinophils # (Auto) 0.0, Basophils # (Auto) 0.1, Sodium Level 140, Potassium Level 3.7, Chloride Level 108H, Carbon Dioxide Level 23, Anion Gap 9, Blood Urea Nitrogen < 2L, Creatinine 0.51L, Estimat Glomerular Filtration Rate > 60, BUN/Creatinine Ratio 4, Glucose Level 114H, Calcium Level 8.2L, Phosphorus Level 0.7*L, Magnesium Level 1.8 Microbiology 02/08/17 Blood Culture - Preliminary, Resulted No growth 02/10/17 C. difficile GDH Antigen & Toxins - Final, Complete 02/09/17 Gram Stain - Final, Resulted 02/09/17 Wound Culture - Preliminary, Resulted Pseudomonas Aeruginosa Proteus Mirabilis Enterococcus Faecalis Pending Labs Discharge Home Medications: Active Scripts Active Ciprofloxacin HCl 2.5 Ml Drops 0 Ml OD QID Lactinex Chewable Tablet (L. Acidophilus/Bulgaricus) 1 Each Tab.chew 1 Each PO ACHS Prevalite Packet (Cholestyramine/Aspartame) 4 Gm Powd.pack 4 Gm PO TID Amoxicillin 500 Mg Capsule 500 Mg PO TID Ciprofloxacin HCl 500 Mg Tablet 500 Mg PO BID Diflucan (Fluconazole) 100 Mg Tablet 100 Mg PO DAILY Acyclovir 400 Mg Tablet 400 Mg PO 5XD Reported Hydroquinone (Hydroquinone Microspheres) 30 Gm Crm.er..g. TP BID Tylenol (Acetaminophen) 325 Mg Tablet 325 Mg PO Q4H PRN Loratadine 10 Mg Tablet 10 Mg PO DAILY Instructions to patient/family Please see electonic discharge instructions given to patient. Clinical Quality Measures DVT/VTE Risk/Contraindication: Risk Factor Score Per Nursin RFS Level Per Nursing on Admit: 2=Moderate KENISHA ORTIZ DO Feb 11, 2017 11:32
--- NOTE | 2017-02-11 12:06 | Oncology Progress Note ---
Subjective Time Seen by Provider: 09:40 Subjective/Events-last exam Cover for Dr Arambula. 67-year-old female with locally advanced left breast cancer who was undergoing chemotherapy at [facility] 12 weeks of taxol followed by 4 course of AC, finished her last round of chemotherapy with Adriamycin and Cytoxan regimen on . Patient admitted to [facility] with the neutropenic fever and significant symptomatic anemia. She received transfusion with 2 units of PRBCs on admission and is on broad-spectrum antibiotics with cefepime and Levaquin. Also started on GCSF 300 g subcutaneous daily. No further temperature spikes. Feels better clinically. Eating better. status post incision and drainage of great toe and pain has improved significantly. No drainage from the wound today. Had diarrhea 2 days ago and C. difficile negative. Her WBC is up to 9.1K today and ANC 7.5K today. She wants to go home if possible. Data Review Labs Laboratory Tests 02/11/17 03:45 Laboratory Tests 02/08/17 21:05: Hemoglobin 9.3#L, Hematocrit 27L 02/08/17 21:45: Urine Specific Scott 1.010L, Urine Protein 1+H, Urine Ketones 4+H, Urine RBC ( Auto) 1+H, Urine Mucus SMALLH 02/09/17 04:20: Hemoglobin 9.2L, Hematocrit 27L, White Blood Count 0.5*L, Red Blood Count 2.94L , Platelet Count 42L, Mean Platelet Volume 11.8H, Monocytes (%) (Auto) 23H, Neutrophils # (Auto) 0.3L, Lymphocytes # (Auto) 0.1L, Potassium Level 3.0L, Blood Urea Nitrogen 5L, Creatinine 0.51L, Glucose Level 118H, Calcium Level 8.3L , Total Protein 5.0L, Albumin 2.9L 02/09/17 16:00: 02/10/17 04:15: White Blood Count 2.7L, Red Blood Count 2.98L, Hemoglobin 9.3L, Hematocrit 27L, Red Cell Distribution Width 14.7H, Platelet Count 52L, Mean Platelet Volume 12.5H, Neutrophils (%) (Auto) 76H, Lymphocytes (%) (Auto) 10L, Lymphocytes # ( Auto) 0.3L, Potassium Level 3.4L, Chloride Level 109H, Blood Urea Nitrogen < 2L , Creatinine 0.48L, Glucose Level 123H, Calcium Level 8.4L 02/10/17 04:34: Magnesium Level 1.5L 02/10/17 10:53: 02/11/17 03:45: Red Blood Count 3.06L, Hemoglobin 9.5L, Hematocrit 28L, Red Cell Distribution Width 14.8H, Platelet Count 75L, Mean Platelet Volume 11.2H, Neutrophils (%) ( Auto) 83H, Lymphocytes (%) (Auto) 4L, Lymphocytes # (Auto) 0.4L, Chloride Level 108H, Blood Urea Nitrogen < 2L, Creatinine 0.51L, Glucose Level 114H, Calcium Level 8.2L, Monocytes # (Auto) 1.1H, Phosphorus Level 0.7*L Physical Exam Vital Signs Vital Sign - Last 12Hours 02/08/17 02/08/17 11:53 16:25 Temp 99.9 Pulse 110 Resp 18 B/P (MAP) 118/86 Pulse Ox 97 O2 Delivery Room Air Capillary Refill : Less Than 3 Seconds General Appearance: No Apparent Distress HEENT: PERRL/EOMI, Other (slightly redness of the right eye) Respiratory: Lungs Clear Cardiovascular: Regular Rate, Rhythm, No Edema Gastrointestinal: Non Tender Extremity: Non Tender, No Calf Tenderness, No Pedal Edema, Other (big toe redness and swelling but much better per patient) Neurologic/Psychiatric: Alert, Oriented x3 Impression & Plan Impression & Plan A/P: 1. Neutropenic fever, cultures negative so far. On broad-spectrum antibiotics with cefepime and Levaquin day. WBC and ANC recovered. We can change her antibiotics to oral. Dr Sam to decide the drugs. 2. On G-CSF 300 g subcutaneous daily. ANC 7500. Stop after today. 3. Symptomatic anemia, status post transfusion with 2 units of PRBCs. Hemoglobin 9.5. Continue to monitor. 4. Locally advanced left breast cancer, status post neoadjuvant chemotherapy with weekly paclitaxel 12 and Adriamycin and Cytoxan regimen 4 with the last chemotherapy on 01/28/2017. Will f/u at [facility] for next step of management. 5. ulcer and cellulitis of great toe, status post incision and drainage. Wound culture GRAM STAIN Final Verified 02/10/17- 0717Final Source: INCISION / TOE Order Location: [facility] Few to moderate # WBC's Moderate # gram negative rods and gram positive cocci WOUND CULTURE RESULT Preliminary Verified 02/11/17- 824Preliminary Source: INCISION / TOE Order Location: [facility] Organism 1 PSEUDOMONAS AERUGINOSA Moderate Growth SENSITIVITY REPORTED 02/11/17 8:00 Organism 2 PROTEUS MIRABILIS Moderate Growth SENSITIVITY REPORTED 02/11/17 8:00 Organism 3 ENTEROCOCCUS FAECALIS Moderate Growth SENSITIVITY REPORTED 02/11/17 8:00 PSE AERUGI PRO MIRABI ENT FAECAL INTERP INTERP INTERP AMPICILLIN S S GENTAMICIN S S GENTAMICIN 500 S TOBRAMYCIN S S CEFAZOLIN S CEFTRIAXONE S CEFEPIME S AMP/SULBACTAM S PIP/TAZO S S ERYTHROMYCIN S LINEZOLID S TRIMETH/SULFA S VANCOMYCIN S CIPROFLOXACIN S S MEROPENEM S S AZTREONAM S I think to change oral Levaquin would be a good choice. However, Dr Sam to make the final call. 6. 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 On acyclovir 400 mg by mouth 5 times daily for a week and then 400mg daily until pt sees the MD in [facility]. 7. Anemia, s/p transfusion Hb 9.5 today 8. to decide the discharge and pt will be f/u at [facility]. Clinical Quality Measures DVT/VTE Risk/Contraindication: Risk Factor Score Per Nursin RFS Level Per Nursing on Admit: 2=Moderate JIHAN VARMA MD Feb 11, 2017 12:06
== END 2017-02-11 12:15 | disposition home or self-care (01) | DRG 872 ==
LOC: EDUNIT# 11:19 → ER 11:20 → ICU 15:14
PROVIDERS: ADMIT Internal Medicine; ATTEND Internal Medicine
PROC: 0HTRXZZ Resection of Toe Nail, External Approach (ICD-10-PCS; principal; 2017-02-09)
PROC: 0J9R3ZZ Drainage of Left Foot Subcutaneous Tissue and Fascia, Percutaneous Approach (ICD-10-PCS; 2017-02-09)
DX: A41.9 Sepsis, unspecified organism (principal); D70.1 Agranulocytosis secondary to cancer chemotherapy; R50.81 Fever presenting with conditions classified elsewhere; T45.1X5A Adverse effect of antineoplastic and immunosuppressive drugs, initial encounter; L02.612 Cutaneous abscess of left foot; C50.912 Malignant neoplasm of unspecified site of left female breast; D64.81 Anemia due to antineoplastic chemotherapy; S00.81XA Abrasion of other part of head, initial encounter; S00.511A Abrasion of lip, initial encounter; J30.9 Allergic rhinitis, unspecified; E87.6 Hypokalemia; B35.1 Tinea unguium; L60.0 Ingrowing nail; B00.9 Herpesviral infection, unspecified; R19.7 Diarrhea, unspecified; B96.5 Pseudomonas (aeruginosa) (mallei) (pseudomallei) as the cause of diseases classified elsewhere; B96.4 Proteus (mirabilis) (morganii) as the cause of diseases classified elsewhere; B95.2 Enterococcus as the cause of diseases classified elsewhere; W22.01XA Walked into wall, initial encounter; Y92.019 Unspecified place in single-family (private) house as the place of occurrence of the external cause
CPT/HCPCS: 36415; 36430; 71010; 71020; 80048; 80053; 81000; 83605; 83735; 84100; 84132; 84443; 84484; 85014; 85018; 85025; 85610; 85730; 86850; 86900; 86901; 86920; 87040; 87070; 87077; 87186; 87205; 87324; 87449; 93005; 93041; 96361; 96365